=== PATIENT | male | born 1945 | race Caucasian/White ===

== ENCOUNTER → 2022-01-13 | Outpatient (CLI) | payer SELFPAY, OTHER ==
--- NOTE | 2022-01-13 12:40 | ECHOCS_ITS ---
Reason For Study: CAD/ASHD Procedure This was a 2D Doppler, Color Flow transthoracic echocardiogram. The study was technically difficult. Contrast injection was performed. Exam performed in department. Left Ventricle Mildly dilated left ventricle. Left ventricular systolic function is normal. The estimated ejection fraction is 55 %. Post operative septal motion. Diastolic function is indeterminate. Right Ventricle Normal RV size. Normal systolic function. Atria The left atrium is mildly enlarged. Normal right atrium. No doppler evidence for ASD. Mitral Valve There is no mitral annular calcification. Normal mitral valve. Trivial mitral valve insufficiency. Tricuspid Valve Normal tricuspid valve. Trivial tricuspid valve insufficiency. Unable to estimate RV systolic pressure due to insufficient tricuspid regurgitant envelope. Aortic Valve Trisinus/trileaflet aortic valve. Mild diffuse aortic valve thickening. Mild focal aortic valve calcification. Mild (1+) aortic valve insufficiency. Pulmonic Valve The pulmonic valve is not well visualized. Trivial pulmonic valve insufficiency. Great Vessels Normal sized aortic root. Calcified aortic root. Pericardium/Pleural No pericardial effusion. Medication Diluted definity 2ml given slow IV push to enhance endocardial definition. MMode/2D Measurements & Calculations LVIDd: 5.8 cm IVSd: 1.4 cm LVOT diam: 2.2 cm LVIDs: 4.2 cm LVPWd: 1.2 cm RVDd: 3.4 cm FS: 27.4 % LVOT area: 3.9 cm2 Ao root diam: 3.1 cm LAV(MOD-bp): 96.4 ml LA A4 area: 24.7 cm2 LAV(MOD-bp) Indexed: 43.0 ml/m2 LAV(MOD-sp2): 96.0 ml LAV(MOD-sp4): 84.5 ml LA dimension(2D): 5.0 cm RA A4 area: 19.7 cm2 Doppler Measurements & Calculations MV E max elan: 34.1 cm/sec Lat Peak E' Elan: 7.1 cm/sec Med Peak E' Elan: 3.2 cm/sec MV A max elan: 48.2 cm/sec E/E' lat: 4.8 E/E' med: 10.6 MV E/A: 0.71 Ao V2 max: 146.1 cm/sec AI max elan: 337.8 cm/sec LV V1 max: 108.5 cm/sec Ao max P.6 mmHg AI max P.6 mmHg LV V1 max P.7 mmHg Ao V2 mean: 101.1 cm/sec AI dec slope: 120.5 cm/sec2 LV V1 mean P.8 mmHg Ao mean P.5 mmHg AI P1/2t: 821.1 msec LV V1 mean: 80.5 cm/sec Ao V2 VTI: 26.0 cm LV V1 VTI: 20.4 cm VARGAS(I,D): 3.0 cm2 VARGAS(V,D): 2.9 cm2 SV(LVOT): 79.1 ml PA V2 max: 80.3 cm/sec ECHO/Echo Complete W/ Contrast Interpretation Summary The study was technically difficult. Contrast injection was performed. Mildly dilated left ventricle. Left ventricular systolic function is normal. The estimated ejection fraction is 55 %. Post operative septal motion. The left atrium is mildly enlarged. Trivial mitral valve insufficiency. Trivial tricuspid valve insufficiency. Mild diffuse aortic valve thickening. Mild focal aortic valve calcification. Mild (1+) aortic valve insufficiency. Trivial pulmonic valve insufficiency. Calcified aortic root. Unable to estimate RV systolic pressure due to insufficient tricuspid regurgita nt envelope. Diastolic function is indeterminate. 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 Ordering Physician: Juan Mendiola Referring Physician: James Darling Performed By: Zabrina Corbett, RDCS, RVT
== END | disposition home or self-care (01) ==
PROVIDERS: Referring Provider Internal Medicine Cardiovascular Disease; Visit Provider Internal Medicine Cardiovascular Disease
DX: I25.10 Atherosclerotic heart disease of native coronary artery without angina pectoris (principal); Z95.1 Presence of aortocoronary bypass graft
CPT/HCPCS: 93306; Q9957; A4216; C8929

== ENCOUNTER → 2023-02-19 | Outpatient (CLI) | payer OTHER, SELFPAY ==
[2023-02-19 11:30] LABS: Absolute Lymphocyte Count 1.32 X10^3/uL (0.83-4.51); Absolute Neutrophil Count 4.9 X10^3/uL (2.0-7.7); Basophil# 0.05 X10^3/uL; Basophil% 0.7 % (0-1); Eosinophil# 0.22 X10^3/uL; Eosinophils% 2.9 % (0-5); Hematocrit 36.8 % (40-54); Hemoglobin 11.2 g/dL (13.0-16.5); Lymphocyte # 1.32 X10^3/ul (0.83-4.51); Lymphocyte % 17.2 % (19-41); Mean Corp Hgb Conc 30.4 g/dL (32-36); Mean Corpuscular Volume 98.7 fL (80-94); Mean Platelet Vol. 8.9 fl (6.2-12.0); Monocyte# 1.19 X10^3/uL; Monocyte% 15.5 % (0-10); NRBC Flagged by Analyzer 0 % (0-5); Neutrophil # 4.86 X10^3/uL (2.7-7.7); Neutrophil % 63.4 % (47-70); Platelet Count 167 K/mm3 (150-450); RBC Distribution Width CV 14.6 % (11.6-14.6); RBC Distribution Width SD 52.4 fl (35.1-43.9); Red Blood Count 3.73 M/mm3 (4.6-6.2); White Blood Count 7.7 K/mm3 (4.4-11.0)
[2023-02-19 11:50] LABS: BNP,B-Type NATRIURETIC PEPTIDE 598.5 pg/mL (0-100)
[2023-02-19 11:53] LABS: Anion Gap 5 (5-15); BUN 37 mg/dL (7-18); BUN/Creat Ratio 22.2 RATIO (10-20); Calcium,Total 9.3 mg/dL (8.5-10.1); Chloride 109 mmol/L (98-107); Creatinine, Serum 1.67 mg/dL (0.70-1.30); EST Glomerular Filtration Rate 43 mL/min (>60); Est Glom Filt Rate - Afr Amer 52 mL/min (>60); Glucose 70 mg/dL (74-106); Potassium 3.7 mmol/L (3.5-5.1); Sodium Level 144 mmol/L (136-145)
== END | disposition home or self-care (01) ==
PROVIDERS: PCP Nurse Practitioner Family; Referring Provider Physician Assistant Medical; Visit Provider Physician Assistant Medical
DX: R06.09 Other forms of dyspnea (principal); Z95.1 Presence of aortocoronary bypass graft; Z98.890 Other specified postprocedural states; Z86.79 Personal history of other diseases of the circulatory system; I49.3 Ventricular premature depolarization
CPT/HCPCS: 36415; 80048; 83880; 85025

== ENCOUNTER → 2023-03-29 | Outpatient (CLI) | payer SELFPAY, OTHER ==
--- NOTE | 2023-03-29 06:50 | ECHOCS_ITS ---
Reason For Study: POSADAS Procedure This was a 2D Doppler, Color Flow transthoracic echocardiogram. The study was technically difficult. Exam performed in department. Left Ventricle Normal LV size. Left ventricular systolic function is normal. The estimated ejection fraction is 60 %. Stage 1 diastolic dysfunction. No regional wall motion abnormalities noted. Right Ventricle Normal RV size. Normal systolic function. Atria Normal left atrium. Normal right atrium. Mitral Valve Mild (1+) eccentric mitral valve insufficiency. Tricuspid Valve Normal tricuspid valve. Mild tricuspid valve insufficiency. Pulmonary artery systolic pressure is 26 mmHg. Aortic Valve Mild (1+) aortic valve insufficiency. Bioprosthetic aortic valve. Pulmonic Valve Normal pulmonic valve. Trivial pulmonic valve insufficiency. Great Vessels Normal aortic root. The pulmonary artery is normal size. Normal inferior vena cava. Pericardium/Pleural No pericardial effusion. Medication Diluted definity 3ml given slow IV push to enhance endocardial definition. MMode/2D Measurements & Calculations LVIDd: 5.5 cm IVSd: 1.1 cm Ao root diam: 3.6 cm LVIDs: 3.8 cm LVPWd: 1.1 cm RVDd: 3.7 cm FS: 30.3 % LAV(MOD-bp): 58.7 ml LVAd ap4: 40.1 cm2 SV(MOD-sp4): 86.5 ml LAV(MOD-bp) Indexed: 26.1 ml/m2 LVLd ap4: 8.9 cm LAV(MOD-sp2): 57.7 ml EDV(MOD-sp4): 144.2 ml LAV(MOD-sp4): 60.0 ml EDV(sp4-el): 152.9 ml LVAs ap4: 22.6 cm2 LVLs ap4: 7.4 cm ESV(MOD-sp4): 57.7 ml ESV(sp4-el): 58.9 ml EF(MOD-sp4): 60.0 % EF(sp4-el): 61.5 % SV(sp4-el): 94.0 ml LA A4 area: 21.9 cm2 LA dimension(2D): 3.5 cm RA A4 area: 17.5 cm2 Time Measurements MV dec time: 0.37 sec Doppler Measurements & Calculations MV E max elan: 44.8 cm/sec Lat Peak E' Elan: 8.5 cm/sec Med Peak E' Elan: 5.3 cm/sec MV A max elan: 54.2 cm/sec E/E' lat: 5.3 E/E' med: 8.4 MV E/A: 0.83 Ao V2 max: 134.8 cm/sec LV V1 max: 68.8 cm/sec PA V2 max: 105.1 cm/sec Ao max P.3 mmHg LV V1 max P.9 mmHg TR max elan: 240.4 cm/sec TR max P.1 mmHg ECHO/Echo Complete W/ Contrast Interpretation Summary Normal LV size. Left ventricular systolic function is normal. The estimated ejection fraction is 60 %. Stage 1 diastolic dysfunction. Bioprosthetic aortic valve. Mild (1+) aortic valve insufficiency. Contrast injection was performed. Ordering Physician: Candice Louis/Lazarus Patterson Referring Physician: CHRISTIE KINGSLEY Performed By: Irena Stephenson RDCS
--- OUTSIDE RECORDS SUMMARY | 2023-03-29 06:57 | XMS RPT_ITS | CCD ---
Author Name Unknown Address [address] [place] [address] Organization [facility] Care Team Providers Care Recreation Facility Attendant Name Role Phone JAVIER PATTERSON, ROSETTA GUERRA Primary Care Physician Thong Herrera Primary Care Provider [phone] Elisha PATTERSON, [place] Unavailable Javier PATTERSON, Thong Guevara Primary Care Provider ROSETTA HERRERA MD Primary Care Physician Javier PATTERSON, Thong Guevara Primary Care Provider Elisha PATTERSON, Jonel Unavailable Javier PATTESRON, Thong Guevara Primary Care Provider Elisha PATTERSON, Jonel Unavailable Velia Mojica MD Unavailable [facility] Primary Care [facility] javi Elisha PATTERSON, [place] Unavailable THONG HERRERA Primary Care Unavailable ROSELLI, ROSETTA E Referring Unavailable THONG HERRERA Primary Care Unavailable ROSELLI, ROSETTA E Referring Unavailable THONG HERRERA Primary Care Unavailable ROSELLI, ROSETTA E Referring Unavailable THONG HERRERA Primary Care Unavailable SAMINAI, ROSETTA E Referring Unavailable MELVIN AGUILAR Referring Unavailable MELVIN AGUILAR Attending Unavailable THONG HERRERA Primary Care Unavailable ELISHA, JONEL Referring Unavailable THONG HERRERA Primary Care Unavailable CARMITA CLEARYOPE Attending Unavailable THONG HERRERA Primary Care Unavailable ELISHA, JONEL Referring Unavailable HERRERA, THONG ROSETTA Primary Care Unavailable ELISHA, JONEL Referring Unavailable HERRERA, THOGN ROSETTA Primary Care Unavailable ROSETTA LU Attending Unavailable JANAE JARA R Admitting Unavailable COBLENCAMILLE, JANAE R Primary Care Unavailable COBLENCAMILLE, JANAE R Attending Unavailable HERRERATITA FIELD ENUMERATOR Consulting Unavailable PROVIDER, UNKNOWN Consulting Unavailable PROVIDER, UNKNOWN Consulting Unavailable COUVAMSHI, VELIA Admitting Unavailable COUVAMSHI, VELIA Primary Care Unavailable COUVELIA BONDS Attending Unavailable TITA HERRERA FIELD ENUMERATOR Consulting Unavailable PROVIDER, UNKNOWN Consulting Unavailable PROVIDER, UNKNOWN Consulting Unavailable TITA HERRERA FIELD ENUMERATOR Attending Unavailable ROSETTA HERRERA MD Consulting Unavailable TITA HERRERA NP Admitting Unavailable HERRERA, TITA WALLER Primary Care Unavailable PROVIDER, UNKNOWN Consulting Unavailable PROVIDER, UNKNOWN Consulting Unavailable PROVIDER, UNKNOWN Consulting Unavailable CHEVERINE, CINDY ACETYLENE TORCH BURNER Admitting Unavailable CHEVERINE, CINDY ACETYLENE TORCH BURNER Primary Care Unavailable CHEVERINE CINDY CHAYO Attending Unavailable ROSETTA HERRERA MD Consulting Unavailable PROVIDER, UNKNOWN Consulting Unavailable PROVIDER, UNKNOWN Consulting Unavailable PROVIDER, UNKNOWN Consulting Unavailable GUILLERMO PATTON MD Admitting Unava ilable BUCKTOWARSINAfsaneh, GUILLERMO PATTERSON Primary Care Unava ilable BUCKTOWARMAGDALENA, GUILLERMO PATTERSON Attending Unava ilable TITA HERRERA NP Consulting Unavailable PROVIDER, UNKNOWN Consulting Unavailable PROVIDER, UNKNOWN Consulting Unavailable MARITZA PATTERSON, DR POTTER Attending Unavailable HORICARDOTETTER MAINTENANCE MECHANIC 2ND SHIFT-ACETYLENE TORCH BURNER, [facility] Karime vailable JAVIER PATTERSON, ROSETTA GUERRA [facility] Unavailab Cehtan Almaraz MD Attending Unavailable CHEVERINE MAINTENANCE MECHANIC 2ND SHIFT-ACETYLENE TORCH BURNER, CINDY Attending Unavail able JAVIER PATTERSON, ROSETTA GUERRA [facility] Unavailab beronica KINGSLEY MAINTENANCE MECHANIC 2ND SHIFT-ACETYLENE TORCH BURNER, [facility] Karime vailable GALINA PATTERSON, VELIA Booker Attending Unavailable HOFSTETTER MAINTENANCE MECHANIC 2ND SHIFT-ACETYLENE TORCH BURNER, [facility] Karime vailable ESTEFANI PATTERSON, DR CARDOSO Attending Unavailramakrishna MOJICA MD, VELIA Booker Attending Unavailable WILLIAMSTEJONYER MAINTENANCE MECHANIC 2ND SHIFT-ACETYLENE TORCH BURNER, [facility] Karime vailable ESTEFANI PATTERSON, DR CARDOSO Attending Unavaila jaida KRAMERTEFIONA MAINTENANCE MECHANIC 2ND SHIFT-ACETYLENE TORCH BURNER, [facility] Karime vailable GALINA PATTERSON, VELIA Booker Attending Unavailable HORICARDOTEJONYER MAINTENANCE MECHANIC 2ND SHIFT-ACETYLENE TORCH BURNER, [facility] Karime vailable WILLIAMSTEFIONA MAINTENANCE MECHANIC 2ND SHIFT-ACETYLENE TORCH BURNER, [facility] Karime JARA MD, DR CARDOSO [facility] Medications Current Medications Medication Drug Class(es) Dates Sig (Normalized) Sig (Original) amoxicillin 875 mg / clavulanate 125 mg oral tablet (1 source) Penicillin-class Antibacterial Start: 09-20-2021 End: 09-27-2021 take 1 tablet by mouth twice daily amoxicillin-clav ulanic acid (AUGMENTIN) 875-125 mg per tablet Take 1 tablet by mouth twice daily for 7 days. 14 tablet 0 09/20/2021 09/27/2021 Active Completed/Discontinued Medications Medication Drug Class(es) Dates Sig (Normalized) Sig (Original) acetaminophen 325 mg oral tablet (3 sources) Start: 03-15-2021 End: 07-08-2021 take 2 tablets by mouth every four hours as needed acetaminophen (TYLENOL) 325 mg tablet Take 2 tablets by mouth every 4 hours as needed for pain. 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; Translations: [Occlusion and stenosis of multiple and bilateral precerebral arteries with cerebral infarction] Onset: 02-22-2021 05-09-2021 Chronic Aortic; peripheral; and visceral artery aneurysms (20 sources) Aneurysm of thoracic aorta; Translations: [Thoracic aortic aneurysm without rupture] Onset: 02-19-2021 07-30-2014 Chronic Cardiac dysrhythmias (20 sources) Paroxysmal atrial fibrillation; Translations: [Paroxysmal atrial fibrillation] Onset: 04-29-2021 04-29-2021 Chronic Cardiac dysrhythmias (1 source) Palpitations; Translations: [Palpitations] Episodic Chronic kidney disease (20 sources) Chronic kidney disease stage 3; Translations: [Stage 3 chronic kidney disease] Onset: 03-01-2021 05-09-2021 Chronic Chronic kidney disease (2 sources) Chronic kidney disease; Translations: [Chronic kidney disease, stage 3b] Onset: 08-16-2022 Congestive heart failure; nonhypertensive (9 sources) Acute on chronic diastolic heart failure; Translations: [Acute on chronic diastolic (congestive) heart failure] Onset: 05-05-2022 Chronic Coronary atherosclerosis and other heart disease (20 sources) Coronary arteriosclerosis; Translations: [Atherosclerotic heart disease of [place] coronary artery without angina pectoris] Onset: 02-21-2021 05-10-2021 Chronic Deficiency and other anemia (5 sources) Anemia due to and following chemotherapy 01-05-2021 Episodic Disorders of lipid metabolism (20 sources) Hyperlipidemia; Translations: [Hyperlipidemia, unspecified] Onset: 07-08-2021 07-08-2021 Chronic Diverticulosis and diverticulitis (5 sources) Diverticulitis 07-30-2014 Chronic Essential hypertension (3 sources) Hypertensive disorder; Translations: [Essential (primary) hypertension] Onset: 07-28-2022 Chronic Gastroduodenal ulcer (except hemorrhage) (20 sources) Ulcer of duodenum; Translations: [Duodenal ulcer, unspecified as acute or chronic, without hemorrhage or perforation] Onset: 02-27-2021 05-09-2021 Chronic Heart valve disorders (20 sources) Aortic valve regurgitation; Translations: [Nonrheumatic aortic (valve) insufficiency] Onset: 02-21-2021 05-09-2021 Chronic Non-Hodgkin`s lymphoma (20 sources) Non-Hodgkin's lymphoma (clinical); 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] Onset: 02-15-2005 06-09-2021 Chronic Other acquired deformities (20 sources) Acquired kyphosis; Translations: [Other secondary kyphosis, cervical region] Onset: 08-31-2021 08-31-2021 Chronic Other circulatory disease (5 sources) H/O: rheumatic fever 07-30-2014 Episodic Other connective tissue disease (2 sources) Swelling of bilateral lower limbs 12-30-2021 Episodic Other diseases of kidney and ureters (1 source) Renal mass 09-04-2022 Chronic Other upper respiratory disease (20 sources) Vocal cord paralysis; Translations: [Paralysis of vocal cords and larynx, unilateral] Onset: 08-31-2021 08-31-2021 Chronic Other upper respiratory disease (1 source) Non-allergic rhinitis; Translations: [Chronic rhinitis] Chronic Other upper respiratory disease (20 sources) Bowing of vocal cord; Translations: [Other diseases of vocal cords] Onset: 08-31-2021 08-31-2021 Episodic Other upper respiratory disease (1 source) Disorder of vocal cord; Translations: [Other diseases of vocal cords] Episodic Thyroid disorders (20 sources) Thyroid nodule; Translations: [Nontoxic single thyroid nodule] Onset: 03-08-2021 03-14-2021 Chronic Unclassified (5 sources) Malignant lymphoma 07-23-2014 Unclassified (5 sources) Thoracoscopy with partial pulmonary decortication Onset: 07-31-2014 07-31-2014 Past or Other Problems Problem Classification Problem Date Documented Da te Episodic/Chronic Acute posthemorrhagic anemia (20 sources) Acute posthemorrhagic anemia; Translations: [Acute posthemorrhagic anemia] Onset: 1 05-09-2021 Episodic Administrative/social admission (20 sources) Patient encounter status; Translations: [Persons encountering health services in other specified circumstances] Onset: 1 2021 Episodic Complications of surgical procedures or medical care (20 sources) Postoperative hypertension; Translations: [Postprocedural hypertension] Onset: 2 05-09-2021 Episodic Diabetes mellitus without complication (20 sources) Prediabetes; Translations: [Prediabetes] Onset: 2 07-08-2021 Episodic Gastrointestinal hemorrhage (20 sources) Gastrointestinal hemorrhage; Translations: [Gastrointestinal hemorrhage, unspecified] Onset: 5 03-02-2005 Episodic Hemorrhoids (20 sources) Internal hemorrhoids; Translations: [Other hemorrhoids] Onset: 5 01-01-2017 Episodic Non-Hodgkin`s lymphoma (20 sources) History of malignant lymphoma; Translations: [Personal history of other malignant neoplasms of lymphoid, hematopoietic and related tissues] Onset: 3 12-19-2012 Episodic Other aftercare (20 sources) Post-discharge follow-up; Translations: [Encounter for follow-up examination after completed treatment for conditions other than malignant neoplasm] Onset: 1 05-10-2021 Episodic Other diseases of kidney and ureters (20 sources) Acute renal insufficiency; Translations: [Disorder of kidney and ureter, unspecified] Onset: 1 05-10-2021 Episodic Other gastrointestinal disorders (20 sources) Dysphagia; Translations: [Dysphagia, unspecified] Onset: 1 01-19-2021 Episodic Other non-epithelial cancer of skin (20 sources) Malignant basal cell neoplasm of skin; Translations: [Malignant neoplasm of skin of face] Onset: 2 07-23-2014 Episodic Other upper respiratory disease (20 sources) Dysphonia; Translations: [Dysphonia] Onset: 2 08-31-2021 Episodic Pleurisy; pneumothorax; pulmonary collapse (20 sources) Pleural effusion; Translations: [Atelectasis] Onset: 2 09-10-2015 Episodic Residual codes; unclassified (20 sources) Delirium; Translations: [Disorientation, unspecified] Onset: 2 05-10-2021 Episodic Results Test Name Value Interpretation Reference Range Facil ity Vital Signs Date Time Vital Sign Value Performing Clinician Facility 07-28-2022 13:33-0400 Diastolic blood pressure 58 mm[Hg] Jonel Cleary MD Work Phone: [facility] 07-28-2022 13:33-0400 Systolic blood pressure 115 mm[Hg] Jonel Cleary MD Work Phone: [facility] 07-28-2022 13:30-0400 Body weight 97.52 kg Jonel Cleary MD Work Phone: [facility] 07-28-2022 13:30-0400 Heart rate 59 /min Jonel Cleary MD Work Phone: [facility] 07-28-2022 13:30-0400 Respiratory rate 18 /min Jonel Cleary MD Work Phone: [facility] 07-28-2022 13:30-0400 SaO2% (BldA) [Mass fraction] 94 % Jonel Cleary MD Work Phone: [facility] 05-12-2022 13:30-0500 Body temperature 98.71 [degF] Research Main Work Phone: [facility] 05-12-2022 13:30-0500 Body weight 95.35 kg Research Main Work Phone: [facility] 05-12-2022 13:30-0500 Diastolic blood pressure 73 mm[Hg] Research Main Work Phone: [facility] 05-12-2022 13:30-0500 Respiratory rate 16 /min Research Main Work Phone: [facility] 05-12-2022 13:30-0500 SaO2% (BldA) [Mass fraction] 95 % Research Main Work Phone: [facility] 05-12-2022 13:30-0500 Systolic blood pressure 137 mm[Hg] Research Main Work Phone: [facility] 06-09-2021 11:28-0400 diastolic 63 mm[Hg] KELLEY BOURGEOIS MD [facility] 06-09-2021 11:28-0400 Heart rate 63 /min KELLEY BOURGEOIS MD [facility] 06-09-2021 11:28-0400 Respiratory rate 18 /min KELLEY BOURGEOIS MD [facility] 06-09-2021 11:28-0400 systolic 145 mm[Hg] KELLEY BOURGEOIS MD [facility] 06-09-2021 08:57-0400 Body temperature 97.34 [degF] KELLEY BOURGEOIS MD [facility] 06-09-2021 08:57-0400 diastolic 68 mm[Hg] KELLEY BOURGEOIS MD [facility] 06-09-2021 08:57-0400 Heart rate 63 /min KELLEY BOURGEOIS MD [facility] 06-09-2021 08:57-0400 Respiratory rate 20 /min KELLEY BOURGEOIS MD [facility] 06-09-2021 08:57-0400 systolic 149 mm[Hg] KELLEY BOURGEOIS MD [facility] 04-29-2021 10:33-0500 Diastolic blood pressure 90 mm[Hg] Jonel Cleary MD Work Phone: [facility] 04-29-2021 10:33-0500 Systolic blood pressure 127 mm[Hg] Jonel Cleary MD Work Phone: [facility] 04-29-2021 10:32-0500 Body weight 96.62 kg Jonel Cleary MD Work Phone: [facility] 04-29-2021 10:32-0500 Heart rate 85 /min Jonel Cleary MD Work Phone: [facility] 04-29-2021 10:32-0500 Respiratory rate 12 /min Jonel Cleary MD Work Phone: [facility] 04-29-2021 10:32-0500 SaO2% (BldA) [Mass fraction] 96 % Jonel Cleary MD Work Phone: [facility] Encounters Encounter Date Encounter Type Care Provider Facility Start: 01-18-2023 End: 01-19-2023 ambulatory CHRISTIE KINGSLEY MAINTENANCE MECHANIC 2ND SHIFT-ACETYLENE TORCH BURNER Facility:A Start: 01-11-2023 End: 01-11-2023 ambulatory VELIA MOJICA [facility] Start: 01-08-2023 End: 01-09-2023 ambulatory CHRISTIE KINGSLEY MAINTENANCE MECHANIC 2ND SHIFT-ACETYLENE TORCH BURNER Facility:A Start: 01-02-2023 End: 01-02-2023 ambulatory JANAE JARA [facility] Start: 12-06-2022 End: 12-07-2022 ambulatory CHRISTIE KINGSLEY MAINTENANCE MECHANIC 2ND SHIFT-ACETYLENE TORCH BURNER Facility:A Start: 11-22-2022 End: 11-22-2022 ambulatory GUILLERMO PATTON [facility] Start: 11-08-2022 End: 08-23-2023 ambulatory TITA FIELD ENUMERATOR [facility] Start: 11-06-2022 Patient encounter procedure Janna Bacon Research Coordinator Cardiology Procedures Date Procedure Procedure Detail Performing Clinician Start: 08-22-2022 OUTSIDE VENDOR CARDI AC OUTPATIENT EXTENDED RHYTHM RECORDING ((WITHOUT Jonel Cleary MD Work Phone: Start: 06-24-2021 Ct angio abd&plvis c ntrst mtrl w/wo cntrst img Rosetta Lu MD Work Phone: Start: 06-24-2021 Ct angiography chest w/contrast/noncontrast Rosetta Lu MD Work Phone: Start: 06-07-2021 OUTSIDE VENDOR CARDI AC OUTPATIENT EXTENDED RHYTHM RECORDING ((WITHOUT Jonel Cleary MD Work Phone: Start: 03-19-2021 Abdominal aortic ane urysm (disorder) DR JANAE JARA MD Start: 02-16-2021 Heart structure (bod y structure) MADELINE JEFF MD Start: 07-31-2014 Lung structure (body structure) KELLEY BOURGEOIS MD Plan of Treatment Date Care Activity Detail Author Start: 06-24-2026 LIPID SCREEN LIPID SCREEN [facility] Start: 07-28-2025 DIABETES SCREEN DIABETES SCREEN [facility] Start: 06-24-2024 DIABETES SCREEN DIABETES SCREEN [facility] Start: 07-29-2023 HEMOGLOBIN/HEMATOCRIT HEMOGLOBIN/HEMATOCRIT [facility] Start: 07-29-2023 Hepatitis B surface antibody level LDL CHOLESTEROL [facility] Start: 07-29-2023 SERUM CREATININE SERUM CREATININE [facility] Start: 05-12-2023 SERUM CREATININE SERUM CREATININE [facility] Start: 03-30-2023 End: 05-30-2023 CREATININE BLD CREATININE BLD Lab Routine Thoracoabdominal aortic aneurysm (TAAA) without rupture, unspecified part (HCC) Examination of participant in clinical trial Expected: 03/30/2023 (Approximate), Expires: 05/30/2023 [facility] Work Phone: Payers Date Payer Category Payer Unknown [id number] 2022 Self-pay 2022 Unknown [id number] 2022 Unknown [id number] 2021 Unknown HINDU SELF P AY HINDU SELF PAY GENERIC x0000 2021-Present [id number] [id number] Other x0000 [id number] 2021 Unknown [id number] 2021 Unknown [id number] [id number] 1946 Unknown [id number] [id number] 1946 Unknown [id number] 2.16.840.1.100737.3.579.2.651 1946 Unknown [id number] 2.16.840.1.901644.3.579.2.651 1946 Unknown [id number] 2.16.840.1.434735.3.579.2.651 1945 Unknown [id number] 2.16.840.1.987625.3.579.2.651 1946 Unknown [id number] [id number] 1946 Unknown [id number] [id number] 1946 Unknown [id number] [id number] 1946 Unknown [id number] [id number] 1946 Unknown [id number] [id number] 1946 Unknown [id number] [id number] 1946 Unknown [id number] [id number] 1946 Unknown [id number] [id number] 1946 Unknown [id number] Social History Date Type Detail Facility Start: 05-14-2019 Never smoked t obacco (finding) [facility] Sex Assigned At Male [facility] Start: 06-24-2021 End: 08-30-2022 Alcohol intake Current non-drinker of alcohol (finding) [facility] Start: 1945 Sex Assigned At Not on file [facility] Start: 06-14-2021 End: 11-23-2021 Exposure to SARS-CoV-2 (event) Not sure [facility] Start: 08-31-2021 End: 11-23-2021 Tobacco smoking status NHIS Ex-smoker [facility] Work Phone: History of tobacco use Cigarette Smoker C [facility] Work Phone: Start: 08-31-2021 End: 11-23-2021 Tobacco use and exposure Smokeless tobacco non-user [facility] Work Phone: Start: 08-31-2021 End: 11-23-2021 Tobacco Comment very remotely [facility] History of tobacco use Current smoker [facility] Start: 07-28-2022 End: 08-30-2022 History of Social function [facility] Start: 07-28-2022 End: 08-30-2022 Tobacco use panel [facility] National Score (1-100), lower number is lower risk 40 [facility] Medical Equipment Procedure Code Equipment Code Equipment Original Text Equipment Identifier Dates Clip Atriclip Gillinov-Bret 180d Long 35mm 25mm Internal Head - [id number] Start: 02-21-2021 Graft Vascutek A nte-Mookie 30mm Cardiovascular - [id number] Start: 02-21-2021 [id number] B-Safer Adena Tag/Main Body [id number] - [id number] Start: 02-21-2021 [id number] B-Safer Bard Fluency Plus [id number] - [id number] Start: 02-21-2021 [id number] B-Safer Bard Fluency Plus [id number] - [id number] Start: 02-21-2021 [id number] B-Safer Adena Tag/Distal [id number] - [id number] Start: 05-05-2021 [id number] B-Safer Adena Tag/Distal [id number] - [id number] Start: 05-05-2021 [id number] B-Safer Adena Tag/Distal [id number] - [id number] Start: 05-05-2021 Patch Thk.5mm James vine Pericardial 72d78ym Cardiovascular Resilience Durable - [id number] Start: 02-21-2021 Sternal Plate Sy stem Straight 4 Hole - [id number] Start: 02-21-2021 Sternal Plate Sy stem V Plate 4 Hole - [id number] Start: 02-21-2021 Screw Slf Drl Lk 3.5 - [id number] Start: 02-21-2021 Stent Adena Viaba hn 8mm 16sq Mm 7fr .035in 39mm 135cm Endoprosthesis Balloon - [id number] Start: 05-05-2021 Catheter Edm Bar ium Silicone 80cm Drainage Open Tip Impregnate Sterile - [id number] Start: 05-04-2021 Silicone Block F irm 12x7x1.5cm - [id number] Start: 09-20-2021 Clinical Notes 04-11-2021 to 10-23-2022 Telephone Encounter - Regino Toth 10/23/2022 12:38 PM EDTTelephone Encounter - Breana Pittman RN - 09/21/2022 12:48 PM EDTTelephone Encounter - Regino Toth - 09/21/2022 10:32 AM EDT Note Date & Type Note Facility 10-23-2022 Miscellaneous Notes Call from patient requesting refill. Requested Prescriptions Pending Prescriptions Disp Refills aspirin, enteric coated (ASPIR-81) 81 mg EC tablet 90 tablet 0 Sig: Take 1 tablet by mouth once daily. NEED APPT FOR FURTHER REFILLS. Patient last seen 07/28/2022 -pt has one pill left. Regino Toth documented in this encounter [facility] 09-21-2022 Miscellaneous Notes Images from the original note were not included. Jonel Cleary MD [facility] Clinical Nurse Phone Pool; Regino Toth Would you mind informing patient that holter had a lot of extra heart beats. Would like him to be considered for repeat stress test. Also, should have FIELD ENUMERATOR visit same day to reassess swelling in legs and blood work, ecg. Thanks. Patient is Christoph - unsure if available by telephone. Spoke with the patient's daughter, Keena. Discussed the results above and Dr Cleary's recommendations. She will discuss this with him and call to schedule appointments. She has noticed some increased swelling in BLE. She was advised that they may be contacted today about scheduling an appt with an FIELD ENUMERATOR in our clinic to reassess his swelling, labs and ECG. Breana Pittman RN documented in this encounter [facility] 09-21-2022 Miscellaneous Notes Request was sent to scheduling to get patient scheduled for 09/28/2022. Will follow up end of day on 09/21/2022. Regino Toth documented in this encounter [facility] 08-30-2022 Note HNO ID: [id number] Author: Melvin Aguilar MD Service: ? 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 His left vocal fold is in a good midline position but he has some mild bowing on the right. He is pleased with the quality of his voice, but if it worsens we can consider an injection into the right side. He does have some trouble with mucous in the throat, but I suspect that may be in part to his CHF. Follow with me as needed HPI: Last seen 11/23/21: Doing well 2 months s/p left medlialization laryngoplasty 09/20/21. Cord appears very well medialized and patient has no complaints except for occasional hoarseness in the mornings. We will plan to see him back for a last check in 6-8 months. He notes that his voiced fluctuates with the weather and may have seasonal allergies or non-allergic rhinitis. He is doing well with this and no treatment recommended at this andrei although he can use a steroid nasal spray as needed. Today he reports That his voice is good. ALLERGIES No Known Allergies Current Outpatient Medications Medication Sig furosemide (LASIX) 20 mg tablet Take 1 tablet by mouth once daily. atorvastatin (LIPITOR) 80 mg tablet Take 1 tablet by mouth once daily. potassium chloride (K-TAB) 10 mEq tablet Take 1 tablet by mouth once daily. lisinopril 2.5 mg tablet Take 1 tablet by mouth once daily. NEED APPT FOR FURTHER REFILLS. metoprolol succinate ER (TOPROL XL) 100 mg Take 1 tablet by mouth once daily. NEED APPT FOR FURTHER REFILLS. aspirin, enteric coated (ASPIR-81) 81 mg EC tablet Take 1 tablet by mouth once daily. NEED APPT FOR FURTHER REFILLS. iv contrast (will be provided with radiology test) CTA CHEST (NONGATED) ABD/PEL WO/W IVCON - No IV access, insert saline lock prior to the sedation, infusion, injection for imaging exam. Discontinue saline lock post exam. If Pt. has a central line or IVAD, may access for administration according to line specific nursing protocol. Once exam is complete flush line and de-access according to line specific nursing protocol in the CT contrast administration guidelines link. Current Facility-Administered Medications Medication Dose Route Frequency perflutren lipid microspheres 1.3 mL in NaCl (PF) 0.9% 10 mL injection (DEFINITY) INTRAVENOUS DIRECTED PRN sodium chloride 0.9 % (flush) 10 mL (BD POSIFLUSH) 10 mL INTRAVENOUS DIRECTED PRN PAST MEDICAL HISTORY Diagnosis Date Aortic dissection (HCC) Basal cell carcinoma of nose CAD (coronary artery disease) Hemorrhage of gastrointestinal tract, unspecified HTN (hypertension) Internal hemorrhoids without mention of complication Other malignant lymphomas, unspecified site, extranodal and solid organ sites PAF (paroxysmal atrial fibrillation) (HCC) PAST SURGICAL HISTORY Procedure Laterality Date APPENDECTOMY COLONOSCOPY FLX DX W/COLLJ SPEC WHEN PFRMD 1995 Colonoscopy COLONOSCOPY FLX DX W/COLLJ SPEC WHEN PFRMD Colonoscopy by Dr. Torres MIDLINE INSERTION/CONSULT 02/27/2021 PAST SURGICAL HISTORY OF bx of lumps on left lower shoulder PAST SURGICAL HISTORY OF Basal Cell Carcinoma of nose removed PAST SURGICAL HISTORY OF 2013 surgery to remove scar tissue in lung done at [place] SIGMOIDOSCOPY FLX DX W/COLLJ SPEC BR/WA IF PFRMD 05/31/1987 Sigmoidoscopy, flexible SIGMOIDOSCOPY FLX DX W/COLLJ SPEC BR/WA IF PFRMD 03/02/05 Sigmoidoscopy, flexible TONSILLECTOMY PRIMARY/SECONDARY Tonsillectomy Social History: Social History Tobacco Use Smoking status: Former Types: Cigarettes Smokeless tobacco: Never Tobacco comments: very remotely Vaping Use Vaping Use: Never used Substance Use Topics Alcohol use: No Drug use: No PHYSICAL EXAM: On physical examination Lamont Oropeza is a well-developed, well nourished male. The voice is strong. Cranial nerves II-XII are grossly intact Mental status revealed patient to be alert and oriented. Mood is appropriate. Details of the physical examination: HEAD AND FACE: Physical examination of the head, neck, external nose, external ears, mouth and face fails to demonstrate any significant abnormality or asymmetry to critical face to face observation. Skin and scalp are normal. ORAL CAVITY/OROPHARYNX: no masses or lesions LARYNX: Recommend flexible laryngoscopy with stroboscopy NECK: No adenopathy, well healed scar, kyphosis CHARTS REVIEWED: My notes, recent cardiothoracic notes VHI: P:11, F:9, E:4, Total:24 MPT: 18 Jennifer Dominguez MD I participated in the history and physical exam of Lamont Oropeza. I discussed the management of Lamont Oropeza with the resident. I reviewed the (more content not included)... [facility] 07-31-2022 Miscellaneous Notes Call from patient requesting refill. Pt's dtr stated that he only has two pills left of the lasix. Pt's dtr is also requesting new prescriptions for the other medications listed to by written by Dr. Cleary. They were previously written by the pt's family doctor. I explained to her that since the PCP initially prescribed them that he might have to continue, but she still wanted Dr. Cleary to look at it. Requested Prescriptions Pending Prescriptions Disp Refills furosemide (LASIX) 20 mg tablet Sig: Take 1 tablet by mouth once daily. aspirin, enteric coated (ASPIR-81) 81 mg EC tablet 90 tablet 0 Sig: Take 1 tablet by mouth once daily. NEED APPT FOR FURTHER REFILLS. atorvastatin (LIPITOR) 80 mg tablet 90 tablet 3 Sig: Take 1 tablet by mouth once daily. metoprolol succinate ER (TOPROL XL) 100 mg 90 tablet 3 Sig: Take 1 tablet by mouth once daily. NEED APPT FOR FURTHER REFILLS. potassium chloride (K-TAB) 10 mEq tablet Sig: Take 1 tablet by mouth once daily. Patient last seen 07/28/2022 Regino Toth documented in this encounter [facility] 07-28-2022 Note HNO ID: [id number] Author: Joenl Cleary MD Service: ? Author Type: Physician Type: Progress Notes Filed: 09/20/2022 10:43 AM Note Text: [facility] Department of Cardiovascular Medicine SECTION OF CLINICAL CARDIOLOGY OUTPATIENT VISIT DATE July 28, 2022 OUTPATIENT VISIT TYPE ESTABLISHED PRIMARY CARE PHYSICIAN: Chetan Herrera MD [address] [place] [address] REFERRING PHYSICIAN: Chelsea Miller [address] [facility] [id number] CHIEF COMPLAINT: Follow-up HISTORY OF PRESENT ILLNESS: Mr. Oropeza is a 76 year old male who presents today for a cardiovascular medicine follow-up visit. Last seen 04/29/2021. He has a significant medical history of a CAD s/p scending and Hybrid Aortic arch repair with a Frozen elephant trunk and stent to the LSCA (B-SAFER), AVr, CABGx3 (SEBASTIAN-LAD, SVG-seq to Ramus and OM1), LAAC on 02/21/2021, CKD stage 3, thyroid nodule, CVA, remote lymphoma. Postoperatively had a mechanical fall that resulted in several rib fractures and had blurred vision due to CVA during ascending aortic arch repair. On 05/05/2021 he underwent successful TEVAR extension. Today, he is accompanied by his daughter. Overall doing well. Still struggles with blurred vision. Recovered well from TEVAR. Follows up with ENT for ongoing evaluation of vocal cords. He denies chest pain, shortness of breath, orthopnea, cough, edema, palpitations, PND, lightheadedness or syncope. Presents for assessment of abnormal CT. Social History: Still grieving the of his ~ 2 years ago. PAST MEDICAL HISTORY Diagnosis Date Basal cell carcinoma of nose Hemorrhage of gastrointestinal tract, unspecified Internal hemorrhoids without mention of complication Other malignant lymphomas, unspecified site, extranodal and solid organ sites PAST SURGICAL HISTORY Procedure Laterality Date APPENDECTOMY COLONOSCOPY FLX DX W/COLLJ SPEC WHEN PFRMD 1995 Colonoscopy COLONOSCOPY FLX DX W/COLLJ SPEC WHEN PFRMD Colonoscopy by Dr. Torres MIDLINE INSERTION/CONSULT 02/27/2021 PAST SURGICAL HISTORY OF bx of lumps on left lower shoulder PAST SURGICAL HISTORY OF Basal Cell Carcinoma of nose removed PAST SURGICAL HISTORY OF 2013 surgery to remove scar tissue in lung done at [place] SIGMOIDOSCOPY FLX DX W/COLLJ SPEC BR/WA IF PFRMD 05/31/1987 Sigmoidoscopy, flexible SIGMOIDOSCOPY FLX DX W/COLLJ SPEC BR/WA IF PFRMD 03/02/05 Sigmoidoscopy, flexible TONSILLECTOMY PRIMARY/SECONDARY Tonsillectomy Social History Tobacco Use Smoking status: Former Types: Cigarettes Smokeless tobacco: Never Tobacco comments: very remotely Vaping Use Vaping Use: Never used Substance Use Topics Alcohol use: No Drug use: No FAMILY HISTORY Problem Relation Age of Onset Emphysema Father Thyroid Mother None Sister None Sister None Sister None Brother None Brother other (kidney tumor) Brother other (spine problem) Sister ALLERGIES No Known Allergies MEDICATIONS: furosemide (LASIX) 20 mg tabletTake 1 tablet by mouth once daily.Disp: 90 tabletRfl: 3 atorvastatin (LIPITOR) 80 mg tabletTake 1 tablet by mouth once daily.Disp: 90 tabletRfl: 3 potassium chloride (K-TAB) 10 mEq tabletTake 1 tablet by mouth once daily.Disp: 90 tabletRfl: 3 lisinopril 2.5 mg tabletTake 1 tablet by mouth once daily. NEED APPT FOR FURTHER REFILLS.Disp: 90 tabletRfl: 3 metoprolol succinate ER (TOPROL XL) 100 mgTake 1 tablet by mouth once daily. NEED APPT FOR FURTHER REFILLS.Disp: 90 tabletRfl: 3 aspirin, enteric coated (ASPIR-81) 81 mg EC tabletTake 1 tablet by mouth once daily. NEED APPT FOR FURTHER REFILLS.Disp: 90 tabletRfl: 0 iv contrast (will be provided with radiology test)CTA CHEST (NONGATED) ABD/PEL WO/W IVCON - No IV access, insert saline lock prior to the sedation, infusion, injection for imaging exam. Discontinue saline lock post exam. If Pt. has a central line or IVAD, may access for administration according to line specific nursing protocol. Once exam is complete flush line and de-access according to line specific nursing protocol in the CT contrast administration guidelines link.Disp: 1 EachRfl: 0 REVIEW OF SYSTEMS: GENERAL: Negative for: Weight loss or gain, Fever or Chills, Weakness and Sleep difficulties. HEENT: Negative for: Headache, Impaired Vision, Glasses, Hearing Impairment, Ringing in Ears, Nosebleeds, Poor dental care, Bleeding Gums, Dentures NECK: Negative for: Swelling, Pain, Stiffness RESPIRATORY: Negative for: Cough, Blood in Sputum, Shortness of breath, Wheezing, Apnea GASTROINTESTINAL: Negative for: Trouble swallowing, Heartburn, Change in bowel habits, Blood in stool, Dark black stools MUSCULOSKELETAL: Negative for: Muscle or joint pain, Stiffness , Joint swelling NEUROLOGIC/PSYCHIATRIC: Negative for: Weakness, Paralysis, Numbness, Tingling, Trem (more content not included)... [facility] 07-28-2022 Instructions Jonel Cleary MD - 07/28/2022 2:22 PM EDT 1) Aortic aneursym. Appears stable compared to scan from April. No change to management plan. Will speak with Dr. Lu and contact you if he would like to evaluate you. 2) Blood pressure. Continue to target blood pressure less than 120/80. Will reduce lisinopril to 2.5 mg from 5 mg daily. Continue metoprolol. 3) Blood work. Please complete today. I will check you cholesterol and look for markers of cardiac congestion. 4) Extra heart beats. Will send monitor in the mail to assess. Please return by mail. 5) Follow-up. In approximately 6 months time with ecg, blood work, and echo documented in this encounter [facility] 07-28-2022 History of Present illness Narrative Images from the original note were not included. [facility] Department of Cardiovascular Medicine SECTION OF CLINICAL CARDIOLOGY OUTPATIENT VISIT DATE July 28, 2022 OUTPATIENT VISIT TYPE ESTABLISHED PRIMARY CARE PHYSICIAN: Chetan Herrera MD [address] [place] [address] REFERRING PHYSICIAN: Chelsea Miller [address] [facility] [id number] CHIEF COMPLAINT: Follow-up HISTORY OF PRESENT ILLNESS: Mr. Oropeza is a 76 year old male who presents today for a cardiovascular medicine follow-up visit. Last seen 04/29/2021. He has a significant medical history of a CAD s/p scending and Hybrid Aortic arch repair with a Frozen elephant trunk and stent to the LSCA (B-SAFER), AVr, CABGx3 (SEBASTIAN-LAD, SVG-seq to Ramus and OM1), LAAC on 02/21/2021, CKD stage 3, thyroid nodule, CVA, remote lymphoma. Postoperatively had a mechanical fall that resulted in several rib fractures and had blurred vision due to CVA during ascending aortic arch repair. On 05/05/2021 he underwent successful TEVAR extension. Today, he is accompanied by his daughter. Overall doing well. Still struggles with blurred vision. Recovered well from TEVAR. Follows up with ENT for ongoing evaluation of vocal cords. He denies chest pain, shortness of breath, orthopnea, cough, edema, palpitations, PND, lightheadedness or syncope. Presents for assessment of abnormal CT. Social History: Still grieving the of his ~ 2 years ago. PAST MEDICAL HISTORY Diagnosis Date Basal cell carcinoma of nose Hemorrhage of gastrointestinal tract, unspecified Internal hemorrhoids without mention of complication Other malignant lymphomas, unspecified site, extranodal and solid organ sites PAST SURGICAL HISTORY Procedure Laterality Date APPENDECTOMY COLONOSCOPY FLX DX W/COLLJ SPEC WHEN PFRMD 1995 Colonoscopy COLONOSCOPY FLX DX W/COLLJ SPEC WHEN PFRMD Colonoscopy by Dr. Torres MIDLINE INSERTION/CONSULT 02/27/2021 PAST SURGICAL HISTORY OF bx of lumps on left lower shoulder PAST SURGICAL HISTORY OF Basal Cell Carcinoma of nose removed PAST SURGICAL HISTORY OF 2013 surgery to remove scar tissue in lung done at [place] SIGMOIDOSCOPY FLX DX W/COLLJ SPEC BR/WA IF PFRMD 05/31/1987 Sigmoidoscopy, flexible SIGMOIDOSCOPY FLX DX W/COLLJ SPEC BR/WA IF PFRMD 03/02/05 Sigmoidoscopy, flexible TONSILLECTOMY PRIMARY/SECONDARY <AGE 13 Tonsillectomy Social History Tobacco Use Smoking status: Former Types: Cigarettes Smokeless tobacco: Never Tobacco comments: very remotely Vaping Use Vaping Use: Never used Substance Use Topics Alcohol use: No Drug use: No FAMILY HISTORY Problem Relation Age of Onset Emphysema Father Thyroid Mother None Sister None Sister None Sister None Brother None Brother other (kidney tumor) Brother other (spine problem) Sister ALLERGIES No Known Allergies MEDICATIONS: furosemide (LASIX) 20 mg tablet^Take 1 tablet by mouth once daily.^Disp: 90 tablet^Rfl: 3 atorvastatin (LIPITOR) 80 mg tablet^Take 1 tablet by mouth once daily.^Disp: 90 tablet^Rfl: 3 potassium chloride (K-TAB) 10 mEq tablet^Take 1 tablet by mouth once daily.^Disp: 90 tablet^Rfl: 3 lisinopril 2.5 mg tablet^Take 1 tablet by mouth once daily. NEED APPT FOR FURTHER REFILLS.^Disp: 90 tablet^Rfl: 3 metoprolol succinate ER (TOPROL XL) 100 mg^Take 1 tablet by mouth once daily. NEED APPT FOR FURTHER REFILLS.^Disp: 90 tablet^Rfl: 3 aspirin, enteric coated (ASPIR-81) 81 mg EC tablet^Take 1 tablet by mouth once daily. NEED APPT FOR FURTHER REFILLS.^Disp: 90 tablet^Rfl: 0 iv contrast (will be provided with radiology test)^CTA CHEST (NONGATED) ABD/PEL WO/W IVCON - No IV access, insert saline lock prior to the sedation, infusion, injection for imaging exam. Discontinue saline lock post exam. If Pt. has a central line or IVAD, may access for administration according to line specific nursing protocol. Once exam is complete flush line and de-access according to line specific nursing protocol in the CT contrast administration guidelines link.^Disp: 1 Each^Rfl: 0 REVIEW OF SYSTEMS: GENERAL: Negative for: Weight loss or gain, Fever or Chills, Weakness and Sleep difficulties. HEENT: Negative for: Headache, Impaired Vision, Glasses, Hearing Impairment, Ringing in Ears, Nosebleeds, Poor dental care, Bleeding Gums, Dentures NECK: Negative for: Swelling, Pain, Stiffness RESPIRATORY: Negative for: Cough, Blood in Sputum, Shortness of breath, Wheezing, Apnea GASTROINTESTINAL: Negative for: Trouble swallowing, Heartburn, Change in bowel habits, Blood in stool, Dark black stools MUSCULOSKELETAL: Negative for: Muscle or joint pain, Stiffness , Joint swelling NEUROLOGIC/PSYCHIATRIC: Negative for: Weakness, Paralysis, Numbness, Tingling, Tremor, Nervousness, Depressed mood, Memory loss SKIN: Negative for: Rashes, Itching HEMATOLOGICAL/LYMPHATIC: Negative for: Easy bruising , Easy bleeding ENDOCRINE: Negative for: Heat or cold intolerance, Excessive sweating, Frequent urination, Frequent thirst PHYSICAL EXAMINATION: BP 115/58 (BP Site: Right Arm) Pulse (!) 59 Resp 18 Wt 97.5 kg (215 lb) SpO2 94% BMI 29.16 kg/m General: Well appearing, in no acute distress. Skin: No clubbing, no cyanosis. Eyes: Extra ocular movements intact Oropharynx: Teeth in good repair. Neck: No jugular venous distention, no carotid bruits, carotids have a normal upstroke, no palpable thyromegaly. Lungs: Clear to auscultation bilaterally, no wheezing or rhonchi. Heart: Regular rhythm, PMI not displaced, S1, S2 normal, no S3, no S4, no heaves, no rub and no murmur. Abdomen: Soft, nontender, bowel sounds normal, no palpable organomegaly, no bruits. Extremities: No peripheral edema . Grade 2/4 distal pulses bilaterally. Neuro: Oriented to person, place and time, alert, cooperative, gait coordinated. CARDIOVASCULAR MEDICINE TESTING: ECG 07/28/2022 Diagnosis: SINUS BRADYCARDIA WITH 1ST DEGREE AV BLOCK WITH FREQUENT PREMATURE VENTRICULAR COMPLEXES CANNOT EXCLUDE INFERIOR MYOCARDIAL INFARCTION , AGE UNDETERMINED ABNORMAL ECG CTA 06/07/2022 The CTA was compared to a recent prior study from 2022 performed and interpreted at [facility]. There is no significant interval change of aortic anatomy. TTE 05/12/2022 CONCLUSIONS: - Exam indication: AVR, Ascending/Arch repair, CABG (02/2021) - The left ventricle is normal in size. There is mild concentric left ventricular hypertrophy. Left ventricular systolic function is mildly decreased. EF = 51 5% (2D 4-ch.) - The right ventricle is normal in size. Right ventricular systolic function is normal. Mild TR. - The visualized aorta is dilated with a maximal dimension of 4.1 cm. - S/P aortic valve repair. There is mild (1+ - 2+) aortic valve regurgitation. The peak gradient is 11 mmHg and the mean gradient is 6 mmHg. Prior pk/mn gradient 7/4mmHg. - Exam was compared with the prior echocardiographic exam performed on 07/08/21, similar finidngs. TTE 07/08/2021 CONCLUSIONS: - Technically difficult exam due to body habitus. - Exam indication: Asc aorta graft with valve resuspention surgery - The left ventricle is normal in size. Left ventricular systolic function is mildly decreased. EF = 49 5% (2D biplane) Left ventricular diastolic function was not evaluated. Diastology not evaluated due to techinally difficult images. - The right ventricle is normal in size. Right ventricular systolic function is normal. - The left atrial cavity is mildly dilated. - The visualized aorta is dilated with a maximal dimension of 4.1 cm. - S/P aortic valve repair. There is mild (1+ - 2+) aortic valve regurgitation. The peak gradient is 7 mmHg, the mean gradient is 4 mmHg and the dimensionless valve index is 0.56. Prior pk/mn gradients were 6/4mmHg. The extent of AI might be an underestimate due to eccentricity of the jet (Clip # 41, 56, 65, 72 and 74). - Exam was compared with the prior CC echocardiographic exam performed on 04/29/21. AI was better visualized today. Extended Telemetry 05/14 - 05/28/2021 Patient had a min HR of 49 bpm, max HR of 138 bpm, and avg HR of 62 bpm. Predominant underlying rhythm was Sinus Rhythm. First Degree AV Block was present. 3 Supraventricular Tachycardia runs occurred, the run with the fastest interval lasting 17.9 secs with a max rate of 138 bpm (avg 114 bpm); the run with the fastest interval was also the longest. Some episodes of Supraventricular Tachycardia may be possible Atrial Tachycardia with variable block. Isolated SVEs were rare (<1.0%), SVE Couplets were rare (<1.0%), and SVE Triplets were rare (<1.0%). Isolated VEs were rare (<1.0%, 1289), VE Couplets were rare (<1.0%, 31), and VE Triplets were rare (<1.0%, 2). Ventricular Trigeminy was present. Laboratory Testing 07/28/22 14:34 Creatinine 1.69 (H) NT Pro BNP 5,213 (H) eGFR 42 (L) Cholesterol, Total 200 (H) Triglyceride 192 (H) Fasting Time 0 HDL Cholesterol 43 LDL Cholesterol 119 (H) VLDL Cholesterol 38 (H) TC:HDL Ratio 4.65 LDL:HDL Ratio 2.77 (H) Non HDL Cholesterol 157 (H) (H): Data is abnormally high (L): Data is abnormally low IMPRESSION: Mr. Oropeza is a 76 year old male with a history of aortic dissection s/p ascending and hybrid aortic arch repair with a Frozen elephant trunk and a stent to the LSCA (B-SAFER), AVr, CABGx3 (SEBASTIAN-LAD, SVG-seq to Ramus and OM1), LAAC on 02/21/2021, CKD stage 3, thyroid nodule, CVA, remote history of lymphoma. Descending TEVAR 05/05/2021. PLAN AND RECOMMENDATIONS: Aortic Dissection. Now s/p successful ascending and hybrid aortic arch repair with a Frozen elephant trunk and a stent to the LSCA (B-SAFER), AVr, CABGx3 (SEBASTIAN-LAD, SVG-seq to Ramus and OM1), LAAC on 02/21/2021 and TEVAR 05/05/2021. Repeat CTA performed locally for unclear indications - no symptoms. Review with our radiology department shows no significant interval change. Secondary risk factor prevention as outlined below. Coronary artery disease. Status post CABG x3. Secondary prevention measures as outlined below. For lifelong aspirin therapy. HFpEF. Unclear etiology. Elevated NT proBNP and increased pedal oedema. Continue low dose diuretic therapy. Repeat extended dye range operator cloth to rule out pAF as possible precipitant. Recent echo, unremarkable. Differential diagnosis should consider dysrhythmia, hypertensive as well as infiltrative cardiomyopathy. Cardiac risk factor modification. Essential hypertension. Evidence of LVH on echocardiogram, and history of aortic dissection. Blood pressure goal 120/80 mmHg. Continue metoprolol. Decrease lisinopril to optimize BP control in the setting of prediabetes and CKDIII. Dyslipidemia. LDL above goal (180 mg/dL per most recent panel) Warrants high intensity statin. Initiated Atorvastatin 80 mg. Discussed dietary changes and increasing the level of activity. Paroxysmal atrial fibrillation. Extended telemetry suggests unremarkable burden of ectopy. Continue metoprolol. ASA. Low threshold to initiate anticoagulant for secondary prevention of stroke if has recurrence. Follow-up. In approximately 6 months time with repeat lipid panel and ECG. Encouraged patient to begin activity. Thank you very much for involving the care of your patient. Sincerely, Jonel Cleary MD CONTACT INFORMATION: Jonel Cleary MD, MSc, FRCPC, FACC Section of Clinical Cardiology Desk [address] [place] [address] Addendum: High burden of PVCs on heart monitor. For repeat ischaemic testing and consideration of increased metoprolol dosing. Bring back to clinic to reassess heart failure in this setting. Jonel Cleary MD September 20, 2022 10:38 AM documented in this encounter [facility] 07-26-2022 Miscellaneous Notes Called patient's dtr regarding appointment change from 07/27/2022 to 07/28/[address] Cleary. She was agreeable and said she would call office back if she can't make it. Regino Toth documented in this encounter [facility] 07-12-2022 Miscellaneous Notes Per ramp: make appt-if cannot get in to see ramp, see [email or web address]. Have imaging sent over by admin. When he comes, have echo scheduled beforehand, and cbc, cmp, nt pro bnp, lipid panel. July 04, 2022 Patient Contact Number: [phone] - marino Brink Patient last seen within the last year: Yes Date of last office visit: 07/08/2021 Reason For Call: Patient had a CT scan done locally around 06/07/2022. They stated that he had a leaky valve that was leaking into his abdominal region, from aortic endograft stent. Patient has an aortic stent and had surgery done by Dr. Lu back in 02/2021 and again in 04/2020. She had questions about the CT results and was told by that department that patient needs to be seen by the Clinic. I also gave her the number to Dr. Lu's office as well. Physician: Jonel Cleary MD Patient was informed that non-urgent calls may be returned within the next three business days. Yes Regino Toth documented in this encounter [facility] 07-10-2022 Miscellaneous Notes Pt is established with krystin Cleary referral for f/u visit and ekg 07/10 Patient: Lamont Oropeza Date of : 1945 Patient phone number: [phone] Referring Provider for the encounter: Velia Mojica MD Requesting Provider: Dr. Lu Reason for requesting visit (RFV/signs and symptoms/diagnosis): valve leak from 06/05/22 CT Person calling: self Return call to: self Medical Records/Insurance Card scanned into [employer]: Yes Comments: via [facility] fax documented in this encounter [facility] 05-12-2022 Note HNO ID: [id number] Author: Rosetta Lu MD Service: ? Author Type: Physician Type: Progress Notes Filed: 05/16/2022 6:41 PM Note Text: FOLLOW-UP Aorta Dissection, Chronic Aortic Dissection (s/p Previous Total arch replacement FET). Patient Type: Established PCP: Chetan Herrera [address] [place], [place] [id number] Other Physician: SELF Patient Mr. Oropeza returns, now 12 months following the endovascular repair of his arch, ascending, Aortic Dissection. The patient is asymptomatic but does have some diastolic heart failure that seems to respond well to diuretic therapy and is being managed well with his home rn clinical documentation specialist. SURGERY DATE: 05/05/2021 Surgeon: Rosetta Lu MD PROCEDURE(S): Right Groin Cutdown, Left Brachial Artery Access, IVUS assessment, TEVAR Extension ([place] cTAG [id number], [id number], 37x 150), Balloon Fraction Fenestration, Aortogram withType 1A Endoleak Identified at previous subclavian stenting site treated with Adena Viabahn VBX stent, Completion Angiogram, Primary Repair of RCFA. SURGERY DATE: 02/21/2021 Surgeon: Rosetta Lu MD PROCEDURE(S): Ascending and Hybrid Aortic arch repair with a Frozen elephant trunk and stent to the LSCA (B-SAFER), AVr, CABGx3 (SEBASTIAN-LAD, SVG-seq to Ramus and OM1), LAAC The CT scan was reviewed and reveals a maximum aortic diameter of 76 mm in the area of stented aortic Arch. There is a focal flap noted just distal to the stent graft The echocardiogram shows mild left ventricular dysfunction of 49% and mild aortic regurgitation, s/p AV repair Impression: The patient is doing ok after aortic repair, cardiac surgery, and the last visit. Plan: He will return to see me in 12 months The following studies will be necessary: - CT C/A/P with and without contrast, post stent - Echocardiogram I spent 20 minutes in this visit, with more than 50% of the time devoted to patient counseling. Rosetta Lu MD [facility] 05-12-2022 Note HNO ID: [id number] Author: Violetta Deng, Research Coordinator Service: ? Author Type: Research Type: Progress Notes Filed: 05/15/2022 12:07 PM Note Text: IRB : FABRICIO PI: Dr. Lu Study Visit: Follow up I met with the patient for the 3 month follow up for the Quintin-GRAY Study. Reaffirmed that the patient still wishes to participate in the study and continues to consent to the study. Has the patient had any changes in his health since the last study visit? No Medications and allergy lists updated and current. Has the patient had any outside hospitalizations/ER visits: No Dates and locations: NA Patient notes scheduled Laryngoplasty 09/20/[address] Aguilar with otolaryngology for vocal fold paralysis, and has seen great improvement. Modified Philippe completed: Yes Modified Philippe Score: 2 = Slight disability; unable to carry out all previous activities, but able to look after own affairs without assistance Discussed with the patient the importance of follow up in the study. He verbalized understanding. Next study visit will be in 12 mos Patient contact information reaffirmed and updated. Coordinator contact information provided to the patient. Education provided: Protocol, Protocol required tests/procedures, and Follow up requirements/schedule Materials dispensed: Coordinator Contact Card Violetta Deng, Research Coordinator Pager #: [phone] [facility] 05-12-2022 History of Present illness Narrative IRB : FABRICIO PI: Dr. Lu Study Visit: Follow up I met with the patient for the 3 month follow up for the B-SAFER Study. Reaffirmed that the patient still wishes to participate in the study and continues to consent to the study. Has the patient had any changes in his health since the last study visit? No Medications and allergy lists updated and current. Has the patient had any outside hospitalizations/ER visits: No Dates and locations: NA Modified Philippe completed: Yes Modified Philippe Score: 2 = Slight disability; unable to carry out all previous activities, but able to look after own affairs without assistance Discussed with the patient the importance of follow up in the study. He verbalized understanding. Next study visit will be in 12 mos Patient contact information reaffirmed and updated. Coordinator contact information provided to the patient. Education provided: Protocol, Protocol required tests/procedures, and Follow up requirements/schedule Materials dispensed: Coordinator Contact Card Violetta Deng Research Coordinator Pager #: [phone] documented in this encounter [facility] 05-12-2022 Note HNO ID: [id number] Author: RT Harjinder(Lore) Service: Radiology Author Type: Technologist Type: Progress Notes Filed: 05/12/2022 11:24 AM Note Text: Radiology Service Progress Note PATIENT NAME: Lamont Oropeza DATE OF SERVICE: May 12, 2022 TIME: 11:24 AM PATIENT IDENTITY VERIFICATION COMPLETED USING TWO (2) IDENTIFIERS: Name and Date of confirmed by patient verbally. FALL SCREENING: Has the patient had 2 falls in the last year or 1 fall with injury or currently using an Ambulatory Assistive Device (Walker, Cane, Wheelchair, Crutches, etc.)? No PATIENT GENDER DATA: Male PATIENT RELEVANT IMPLANT DATA REVIEWED: Yes RADIOLOGY DEPARTMENT: CT; Exam(s) Completed: Cardiac PERIPHERAL IV DATA: Site assessment: Clean,Dry and Intact, Site disposition Discontinued SIGNED BY: RT Harjinder(R) May 12, 2022 11:24 AM [facility] 05-12-2022 Note HNO ID: [id number] Author: Melissa Wellington RN Service: Radiology Author Type: Registered Nurse Type: Progress Notes Filed: 05/12/2022 10:33 AM Note Text: Radiology Service Progress Note DATE OF SERVICE: May 12, 2022 TIME: 10:20 AM PATIENT WEIGHT: 214LBS PATIENT IDENTITY VERIFICATION COMPLETED USING TWO (2) STANDARD IDENTIFIERS: Name and Date of confirmed by patient verbally and Name and Date of confirmed by identification band. FALL SCREENING: Has the patient had 2 falls in the last year or 1 fall with injury or currently using an Ambulatory Assistive Device (Walker, Cane, Wheelchair, Crutches, etc.)? No PATIENT GENDER DATA: Male ALLERGIES: Reviewed and unchanged CONTRAST ALLERGY: No EXAM: CT -CONTRAST INDUCED NEPHROPATHY RISK FACTORS: Patient age > 60 years and Congestive Heart Failure (CHF) CREATININE: Creatinine Date Value Ref Range Status 06/24/2021 1.31 (H) 0.73 - 1.22 mg/dL Final 05/18/2021 1.55 (H) 0.73 - 1.22 mg/dL Final Creatinine (POCT) Date Value Ref Range Status 05/12/2022 1.60 (A) 0.7 - 1.4 mg/dL Final eGFR (POCT) Date Value Ref Range Status 05/12/2022 44 mL/min/1.73 m2 Final eGFR- Date Value Ref Range Status 2021 >60 Final P.O.C.T. RESULTS: POC done: Yes, See Lab Tab May 12, 2022 TREATMENT: No Hydration needed. IV SITE: Ambulatory: A peripheral IV was started in the Right antecubital site with a Angio cath: 20 gauge. and A Saline lock was inserted per protocol IV SITE APPEARANCE: Clean,Dry and Intact SIGNATURE: Melissa Wellington RN PATIENT NAME: Lamont Oropeza DATE: May 12, 2022 TIME: 10:20 AM [facility] 11-23-2021 Instructions Jennifer Dominguez MD - 11/23/2021 8:48 AM EDT Now that you have had a laryngoplasty, you will need to undergo several precautions for the rest of your life when you undergo general anesthesia to make sure that the prosthesis in your vocal cord remains in the right position. Movement of the prosthesis could result in a worse voice. These recommendations should be relayed to your anesthesiologist before every surgery in the future. 1- Avoid intubation if possible (use another method, such as an LMA). 2- If intubation is necessary, use the smallest tube that can be used safely. 3- Please ask to receive a dose of perioperative steroids. 4- The anesthesiologist should deflate the endotracheal tube completely before extubation. 5- Both intubation AND extubation should occur under direct visualization of the full length of the true vocal cords to make sure that the implant is not dislodged. With these precautions, and the likelihood of complication or dislodgment of the prosthesis is fairly small. Again, please review these recommendations with your anesthesiologist and surgeon before any procedure in the future to maintain the best voice. If they or you have any questions, please have them contact Dr Aguilar's office directly. documented in this encounter [facility] 11-23-2021 History of Present illness Narrative CC: Lamont Oropeza is a 76 year old male seen as a return patient with a history of left vocal fold paralysis. IMPRESSION AND PLANS: Doing well 2 months s/p left medlialization laryngoplasty 09/20/21. Cord appears very well medialized and patient has no complaints except for occasional hoarseness in the mornings. We will plan to see him back for a last check in 6-8 months. He notes that his voiced fluctuates with the weather and may have seasonal allergies or non-allergic rhinitis. He is doing well with this and no treatment recommended at this andrei although he can use a steroid nasal spray as needed. HPI: 76 yo male with left VC paralysis s/p left medialization laryngoplasty 09/20/21. Last seen 09/21/21 at that time plan was: Doing well 1 day after her medialization laryngoplasty for a vocal fold paralysis. The patient has been instructed as to wound care and voice use, and will avoid heavy lifting or straining for 2 weeks. Followup in 2 weeks for a virtual visit and then in 6-8 weeks unless there is difficulty in the interim. Today he reports a strong voice he is happy with and denies dysphagia. ALLERGIES No Known Allergies Current Outpatient Medications Medication Sig lisinopril (ZESTRIL, PRINIVIL) 5 mg tablet Take 1 tablet by mouth once daily. metoprolol succinate ER (TOPROL XL) 100 mg Take 1 tablet by mouth once daily. atorvastatin (LIPITOR) 80 mg tablet Take 1 tablet by mouth once daily. aspirin, enteric coated (ASPIR-81) 81 mg EC tablet Take 1 tablet by mouth once daily. Current Facility-Administered Medications Medication Dose Route Frequency perflutren lipid microspheres 1.3 mL in NaCl (PF) 0.9% 10 mL injection (DEFINITY) INTRAVENOUS DIRECTED PRN sodium chloride 0.9 % (flush) 10 mL (BD POSIFLUSH) 10 mL INTRAVENOUS DIRECTED PRN perflutren lipid microspheres 1.3 mL in NaCl (PF) 0.9% 10 mL injection (DEFINITY) INTRAVENOUS DIRECTED PRN sodium chloride 0.9 % (flush) 10 mL (BD POSIFLUSH) 10 mL INTRAVENOUS DIRECTED PRN perflutren lipid microspheres 1.3 mL in NaCl (PF) 0.9% 10 mL injection (DEFINITY) INTRAVENOUS DIRECTED PRN sodium chloride 0.9 % (flush) 10 mL (BD POSIFLUSH) 10 mL INTRAVENOUS DIRECTED PRN PAST MEDICAL HISTORY Diagnosis Date Basal cell carcinoma of nose Hemorrhage of gastrointestinal tract, unspecified Internal hemorrhoids without mention of complication Other malignant lymphomas, unspecified site, extranodal and solid organ sites PAST SURGICAL HISTORY Procedure Laterality Date APPENDECTOMY COLONOSCOPY FLX DX W/COLLJ SPEC WHEN PFRMD 1995 Colonoscopy COLONOSCOPY FLX DX W/COLLJ SPEC WHEN PFRMD Colonoscopy by Dr. Torres MIDLINE INSERTION/CONSULT 02/27/2021 PAST SURGICAL HISTORY OF bx of lumps on left lower shoulder PAST SURGICAL HISTORY OF Basal Cell Carcinoma of nose removed PAST SURGICAL HISTORY OF 2013 surgery to remove scar tissue in lung done at [place] SIGMOIDOSCOPY FLX DX W/COLLJ SPEC BR/WA IF PFRMD 05/31/1987 Sigmoidoscopy, flexible SIGMOIDOSCOPY FLX DX W/COLLJ SPEC BR/WA IF PFRMD 03/02/05 Sigmoidoscopy, flexible TONSILLECTOMY PRIMARY/SECONDARY <AGE 13 Tonsillectomy Social History: Social History Tobacco Use Smoking status: Former Types: Cigarettes Smokeless tobacco: Never Tobacco comments: very remotely Vaping Use Vaping Use: Never used Substance Use Topics Alcohol use: No Drug use: No CHARTS REVIEWED Previous laryngoscopy and op report reviewed PHYSICAL EXAM: On physical examination Lamont Oropeza is a well-developed, well nourished male. The voice is strong . Cranial nerves II-XII are grossly intact Mental status revealed patient to be alert and oriented. Mood is appropriate. Details of the physical examination: HEAD AND FACE: Physical examination of the head, neck, external nose, external ears, mouth and face fails to demonstrate any significant abnormality or asymmetry to critical face to face observation. Skin and scalp are normal. ORAL CAVITY/OROPHARYNX: no leisons or masses LARYNX: Recommend flexible laryngoscopy with stroboscopy NECK: kyphosis, neck incision healed well, no masses or lesions VHI: P:9, F:6, E:5, Total:20 MPT: 20 seconds PROCEDURE NOTE: Recommended Videostroboscopy. Risks, benefits and alternatives were explained. The patient wished to proceed he was reidentified and a time out obtained. PROCEDURE: Videostroboscopy PREOPERATIVE DIAGNOSIS: left VC paralysis POSTOPERATIVE DIAGNOSIS: left VC paralysis INDICATIONS: Evaluation larynx to:assess vibratory margin ANESTHESIA: Lidocaine and Phenylephrine PROCEDURE: With the patient sitting upright, a flexible scope was used : Topical anesthesia and vasoconstriction was applied with spray to the right and left side(s) of the nose. After waiting an appropriate period of time for anesthesia/vasoconstriction to become effective, a flexible laryngoscope was passed through the left side(s) of the nose. Nasopharynx was normal. FINDINGS: The nasopharynx was normal without any lesions or masses visualized. No masses or lesions were visualized at the base of tongue, vallecula, epiglottis, aryepiglottic folds, pyriform sinuses, and lateral pharyngeal garrett. True vocal fold movement was immobile left. No lesions visualized. Mucosal wave was noted to be present bilaterally but diminished on the left. Amplitude was decreased left. Closure was complete. Phase symmetry was Absent The patient's airway was widely patent with no evidence of obstruction. Pt tolerated the procedure well, and there were no complications. The procedure was performed by Dr. Aguilar. Jennifer Dominguez MD Given the patient's history and physical examination, the above procedure was recommended. We reviewed the risks, benefits, alternatives, and what to expect from the procedure and informed consent was obtained from the patient. The patient wished to proceed. I performed or was present for the quiroz portions or the entirety of the procedure. Melvin Aguilar MD I participated in the history and physical exam of Lamont Yadav Oropeza. I discussed the management of Lamont Oropeza with the resident. I reviewed the note and agree with the documented findings and plan of care. Melvin Aguilar MD Medical Decision Making: Problems: Low: Stable chronic illness Risk: Low: Low risk from testing/treatment Medical Decision Making Level: 3 - Low documented in this encounter [facility] 11-23-2021 Nurse Note Tobacco Use: Types: Cigarettes Was smoking cessation packet given? N/A - Patient is a non-smoker or quit >1 year ago. Was a referral initiated?N/A Patient is a non-smoker documented in this encounter [facility] 11-22-2021 Note ORIGINAL EXAMINATION: PET TUMOR IMAGING SKULL-THIGH11/22/2021 8:54 am TECHNIQUE: Intravenous injection of 15.1 mCi Fluorine-18 fluorodeoxyglucose (FDG) was administered, followed by acquisition of positron emission tomographic images from the skull base to mid thigh, with concurrent low-dose CT for attenuation correction and anatomic localization utilizing a combined PET/CT scanner. PET images were fused with low-dose CT at the workstation. Dose [id number] time:73 minutes for whole-body, 99 minutes for neck Serum glucose level: 98 mg/dl COMPARISON: PET/CT on 03/14/2019 HISTORY: ORDERING SYSTEM PROVIDED HISTORY: Reason for Exam: 85-year-old male with restaging following treatment for non-Hodgkin's lymphoma. Status post rituximab. FINDINGS: NECK: No hypermetabolic soft tissue lesion within the neck. No hypermetabolic cervical lymph nodes. Resolution of the bilateral neck lymphadenopathy. CHEST: No hypermetabolic parenchymal pulmonary nodule. No hypermetabolic mediastinal, hilar, or axillary lymphadenopathy. Resolution of the mediastinal lymphadenopathy. 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 These appear larger when compared to the PET/CT on 03/14/2019, although exact evaluation is difficult secondary to lack of IV contrast. Long segment descending aortic and proximal left subclavian stent grafts are present. Trace left pleural effusion. ABDOMEN/PELVIS: No hypermetabolic soft tissue lesion. No hypermetabolic abdominal or pelvic lymphadenopathy. Resolution of the abdominal lymphadenopathy with minimal residual central mesenteric fat stranding. Physiologic excretion of radiotracer is present within the kidneys, ureters, urinary bladder, as well as the bowel. Descending and sigmoid colonic diverticulosis without diverticulitis. Bilateral renal cysts are slightly larger than the prior study. Mild right femoral stranding is likely postsurgical or postprocedural. MUSCULOSKELETAL: Focal uptake at the right posterior body of the mandible with max SUV of 5.5, appearing more intense than the prior study. Focal uptake in the manubrium at the sternotomy site with max SUV of 3.3 favors postsurgical and/or inflammatory changes. No additional sites of osseous or marrow of lymphomatous involvement. IMPRESSION: 1. No evidence of hypermetabolic lymphadenopathy. Deauville score 1. 2. Focal uptake in the right posterior body of the mandible appears slightly more intense than the prior study, possibly related to dental disease. Direct visual inspection should be considered. 3. Aortic and proximal left subclavian stent grafts are present. 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 Given interval enlargement, comparison to any more recent outside prior imaging versus CTA chest recommended to evaluate for an endoleak. I have personally reviewed the images of this examination and agree with the resident's findings and interpretation. Interpreted by: Aditya Hernandez DO Preliminary Report By: Marcelino Cook Electronically signed By Aditya Hernandez DO Dictated Date: 11/22/2021 9:08:45 AM Prelim Date: 11/22/2021 12:51:44 PM Sign Date: 11/22/2021 12:51:44 PM Ordering Provider: CINDY RAMIREZ [facility] 11-22-2021 Note ORIGINAL EXAMINATION: PET TUMOR IMAGING SKULL-THIGH11/22/2021 8:54 am TECHNIQUE: Intravenous injection of 15.1 mCi Fluorine-18 fluorodeoxyglucose (FDG) was administered, followed by acquisition of positron emission tomographic images from the skull base to mid thigh, with concurrent low-dose CT for attenuation correction and anatomic localization utilizing a combined PET/CT scanner. PET images were fused with low-dose CT at the workstation. Dose [id number]-al-[id number] time:73 minutes for whole-body, 99 minutes for neck Serum glucose level: 98 mg/dl COMPARISON: PET/CT on 03/14/2019 HISTORY: ORDERING SYSTEM PROVIDED HISTORY: Reason for Exam: 85-year-old male with restaging following treatment for non-Hodgkin's lymphoma. Status post rituximab. FINDINGS: NECK: No hypermetabolic soft tissue lesion within the neck. No hypermetabolic cervical lymph nodes. Resolution of the bilateral neck lymphadenopathy. CHEST: No hypermetabolic parenchymal pulmonary nodule. No hypermetabolic mediastinal, hilar, or axillary lymphadenopathy. Resolution of the mediastinal lymphadenopathy. 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 These appear larger when compared to the PET/CT on 03/14/2019, although exact evaluation is difficult secondary to lack of IV contrast. Long segment descending aortic and proximal left subclavian stent grafts are present. Trace left pleural effusion. ABDOMEN/PELVIS: No hypermetabolic soft tissue lesion. No hypermetabolic abdominal or pelvic lymphadenopathy. Resolution of the abdominal lymphadenopathy with minimal residual central mesenteric fat stranding. Physiologic excretion of radiotracer is present within the kidneys, ureters, urinary bladder, as well as the bowel. Descending and sigmoid colonic diverticulosis without diverticulitis. Bilateral renal cysts are slightly larger than the prior study. Mild right femoral stranding is likely postsurgical or postprocedural. MUSCULOSKELETAL: Focal uptake at the right posterior body of the mandible with max SUV of 5.5, appearing more intense than the prior study. Focal uptake in the manubrium at the sternotomy site with max SUV of 3.3 favors postsurgical and/or inflammatory changes. No additional sites of osseous or marrow of lymphomatous involvement. IMPRESSION: 1. No evidence of hypermetabolic lymphadenopathy. Deauville score 1. 2. Focal uptake in the right posterior body of the mandible appears slightly more intense than the prior study, possibly related to dental disease. Direct visual inspection should be considered. 3. Aortic and proximal left subclavian stent grafts are present. 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 Given interval enlargement, comparison to any more recent outside prior imaging versus CTA chest recommended to evaluate for an endoleak. I have personally reviewed the images of this examination and agree with the resident's findings and interpretation. Interpreted by: Aditya Hernandez DO Preliminary Report By: Marcelino Cook Electronically signed By Aditya Hernandez DO Dictated Date: 11/22/2021 9:08:45 AM Prelim Date: 11/22/2021 12:51:44 PM Sign Date: 11/22/2021 12:51:44 PM Ordering Provider: CINDY RAMIREZ [facility] 09-21-2021 Instructions Melvin Aguilar MD - 09/21/2021 8:32 AM EDT Now that you have had a laryngoplasty, you will need to undergo several precautions for the rest of your life when you undergo general anesthesia to make sure that the prosthesis in your vocal cord remains in the right position. Movement of the prosthesis could result in a worse voice. These recommendations should be relayed to your anesthesiologist before every surgery in the future. 1- Avoid intubation if possible (use another method, such as an LMA). 2- If intubation is necessary, use the smallest tube that can be used safely. 3- Please ask to receive a dose of perioperative steroids. 4- The anesthesiologist should deflate the endotracheal tube completely before extubation. 5- Both intubation AND extubation should occur under direct visualization of the full length of the true vocal cords to make sure that the implant is not dislodged. With these precautions, and the likelihood of complication or dislodgment of the prosthesis is fairly small. Again, please review these recommendations with your anesthesiologist and surgeon before any procedure in the future to maintain the best voice. If they or you have any questions, please have them contact Dr Aguilar's office directly. The current dressing should stay on for 24 hours. It can be removed tomorrow. You can begin showering once it has been removed. There may be a small amount of drainage from the drain site. Place a small amount of topical medicated ointment (like bacitracin) and cover with a small Band-Aid in a vertical direction. The Steri-Strips were beginning to come off in 5-7 days. When they are no longer adhering gently remove them. Once the Steri-Strips have come off you can wash the area with a gentle soap on your fingers. Do not do any heavy lifting or straining for 1 week from the day of the surgery. Avoid significant sun contact the area for 6 months as this may result in change in the color of the scar. documented in this encounter [facility] 09-21-2021 History of Present illness Narrative CC: Lamont Oropeza is a 76 year old male seen as a return patient with a history of vocal fold paralysis. IMPRESSION AND PLANS: Doing well 1 day after her medialization laryngoplasty for a vocal fold paralysis. The patient has been instructed as to wound care and voice use, and will avoid heavy lifting or straining for 2 weeks. Followup in 2 weeks for a virtual visit and then in 6-8 weeks unless there is difficulty in the interim. HPI: Status post medialization laryngoplasty yesterday. There has been no significant problems overnight. There's been no difficulty with breathing or with bleeding. His voice is essentially normal ALLERGIES No Known Allergies Current Outpatient Medications Medication Sig amoxicillin-clavulanic acid (AUGMENTIN) 875-125 mg per tablet Take 1 tablet by mouth twice daily for 7 days. lisinopril (ZESTRIL, PRINIVIL) 5 mg tablet Take 1 tablet by mouth once daily. metoprolol succinate ER (TOPROL XL) 100 mg Take 1 tablet by mouth once daily. atorvastatin (LIPITOR) 80 mg tablet Take 1 tablet by mouth once daily. aspirin, enteric coated (ASPIR-81) 81 mg EC tablet Take 1 tablet by mouth once daily. Current Facility-Administered Medications Medication Dose Route Frequency perflutren lipid microspheres 1.3 mL in NaCl (PF) 0.9% 10 mL injection (DEFINITY) INTRAVENOUS DIRECTED PRN sodium chloride 0.9 % (flush) 10 mL (BD POSIFLUSH) 10 mL INTRAVENOUS DIRECTED PRN perflutren lipid microspheres 1.3 mL in NaCl (PF) 0.9% 10 mL injection (DEFINITY) INTRAVENOUS DIRECTED PRN sodium chloride 0.9 % (flush) 10 mL (BD POSIFLUSH) 10 mL INTRAVENOUS DIRECTED PRN perflutren lipid microspheres 1.3 mL in NaCl (PF) 0.9% 10 mL injection (DEFINITY) INTRAVENOUS DIRECTED PRN sodium chloride 0.9 % (flush) 10 mL (BD POSIFLUSH) 10 mL INTRAVENOUS DIRECTED PRN PAST MEDICAL HISTORY Diagnosis Date Basal cell carcinoma of nose Hemorrhage of gastrointestinal tract, unspecified Internal hemorrhoids without mention of complication Other malignant lymphomas, unspecified site, extranodal and solid organ sites PAST SURGICAL HISTORY Procedure Laterality Date APPENDECTOMY COLONOSCOPY FLX DX W/COLLJ SPEC WHEN PFRMD 1995 Colonoscopy COLONOSCOPY FLX DX W/COLLJ SPEC WHEN PFRMD Colonoscopy by Dr. Torres MIDLINE INSERTION/CONSULT 02/27/2021 PAST SURGICAL HISTORY OF bx of lumps on left lower shoulder PAST SURGICAL HISTORY OF Basal Cell Carcinoma of nose removed PAST SURGICAL HISTORY OF 2013 surgery to remove scar tissue in lung done at [place] SIGMOIDOSCOPY FLX DX W/COLLJ SPEC BR/WA IF PFRMD 05/31/1987 Sigmoidoscopy, flexible SIGMOIDOSCOPY FLX DX W/COLLJ SPEC BR/WA IF PFRMD 03/02/05 Sigmoidoscopy, flexible TONSILLECTOMY PRIMARY/SECONDARY <AGE 13 Tonsillectomy Social History: Social History Tobacco Use Smoking status: Former Smoker Types: Cigarettes Smokeless tobacco: Never Used Tobacco comment: very remotely Vaping Use Vaping Use: Never used Substance Use Topics Alcohol use: No Drug use: No PHYSICAL EXAM: On physical examination Lamont Oropeza is a well-developed, well nourished male. The voice is normal. Cranial nerves II-XII are grossly intact Mental status revealed patient to be alert and oriented. Mood is appropriate. Details of the physical examination: HEAD AND FACE: Physical examination of the head, neck, external nose, external ears, mouth and face fails to demonstrate any significant abnormality or asymmetry to critical face to face observation. Skin and scalp are normal. LARYNX: Recommend flexible laryngoscopy with stroboscopy NECK: The dressing and drain were removed. The incision is doing well. Steri-Strips were applied and a small amount of bacitracin ointment was placed over the drain site. A mild pressure dressing was applied. Melvin Aguilar MD PROCEDURE NOTE: Recommended Videostroboscopy. Risks, benefits and alternatives were explained. The patient wished to proceed he was reidentified and a time out obtained. PROCEDURE: Videostroboscopy PREOPERATIVE DIAGNOSIS: Vocal fold paralysis POSTOPERATIVE DIAGNOSIS: Vocal fold paralysis INDICATIONS: Evaluation larynx to:postoperative assessment ANESTHESIA: Lidocaine 2% and Tio-Synephrine % PROCEDURE: With the patient sitting upright, a flexible scope was used : Topical anesthesia and vasoconstriction was applied with spray to the right and left side(s) of the nose. After waiting an appropriate period of time for anesthesia/vasoconstriction to become effective, a flexible laryngoscope was passed through the left side(s) of the nose. Nasopharynx was normal. FINDINGS: The nasopharynx was normal without any lesions or masses visualized. No masses or lesions were visualized at the base of tongue, vallecula, epiglottis, aryepiglottic folds, pyriform sinuses, and lateral pharyngeal garrett. True vocal fold movement was immobile left. Some bruising of the vocal fold but otherwise closed. Mucosal wave was noted to be present and equal bilaterally. Amplitude was decreased left. Closure was complete. Phase symmetry was Present The patient's airway was widely patent with no evidence of obstruction. Pt tolerated the procedure well, and there were no complications. The procedure was performed by Dr. Aguilar. Melvin Aguilar MD documented in this encounter [facility] 09-21-2021 Nurse Note Tobacco Use: Types: Cigarettes (very remotely) Was smoking cessation packet given? N/A - Patient is a non-smoker or quit >1 year ago. Was a referral initiated?N/A Patient is a non-smoker documented in this encounter [facility] 09-16-2021 Miscellaneous Notes Received a message from a RN in [facility] stating that the covid test was scheduled too early for his procedure. It was scheduled for 09-16 at 9am. (Test needs to be 72 hours or less) Surgery scheduled 09-20. Spoke with Dr. Aguilar. He was made aware that the patient will not have a results within the 72 hour window for surgery. He will proceed with surgery on 09-20. No further concerns documented in this encounter [facility] 08-31-2021 Nurse Note AMBULATORY PATIENT EDUCATION NOTE PRE-OP TEACHING TOPIC: Pre-op Teaching PROCEDURE: LARYNGOPLASTY,MEDIALIZATION,UNILA TERAL READINESS TO LEARN COGNITIVE ABILITY: Alert and oriented MOTIVATION TO LEARN: Eager Interested FAMILY SUPPORT: High - Very involved in pt care INSTRUCTION PROVIDED TO: Patient and family member PATIENT LEARNS BEST BY: Written Instruction - Hand-outs Verbal Instruction Multiple Methods FACTORS AFFECTING LEARNING: None PHYSICAL LIMITATIONS AFFECTING LEARNING: None LEARNING RESPONSE DIAGNOSIS: Left vocal fold paralysis METHOD OF INSTRUCTION: Teach Back Done Correctly Individual instruction Written instruction - handouts PATIENT / FAMILY RESPONSE: Verbalizes understanding of: PRE-OPERATIVE INSTRUCTIONS-Correct action to take to follow pre-operative instructions FOLLOW-UP PLAN: Complete - No need for follow-up SUPPLEMENTAL MATERIAL: None REFERRAL (RECOMMENDATION): None Electronically Signed By: Marlen See RN In Department: OTOLARYNGOLOGY documented in this encounter [facility] 08-31-2021 History of Present illness Narrative CC: Lamont Oropeza is a 76 year old male seen as a return patient with a history of vocal fold paralysis IMPRESSION AND PLANS: he has had a loss of voice since November and he had worsening and eventually had an aortic aneurysm repair on 02/21. He has had CT chest and chest X-rays since. Left vocal fold paralysis. He is now out at least 9 months since the onset and 7 or 8 months since he had complete dysphonia. He also has notable bilateral vocal fold bowing and thinness which will affect the results of the management of the left vocal fold paralysis. I would not recommend an office injection today as it would be temporary and it would delay for more permanent treatment. I have discussed those various treatments with him. With the neck kyphosis I do not think we will be able to perform fat injections and his gap is large enough that I suspect this would not be effective anyway. It would seem that medialization laryngoplasty with Silastic would be the best option although again access will be somewhat limited because of his inability to extend his neck. It does however appear adequate. He is scheduled for 1 last round of chemotherapy for his lymphoma that he will be doing in 10 days. We will therefore schedule this out 5 or 6 weeks after that to make sure that there was no effect from the chemotherapy. I will also arrange for him to have preanesthesia clearance. He is currently on aspirin and he would have to discontinue that 5 to 6 days before the procedure but could resume a couple days after. He will talk to his heart surgeon about that to make sure that that is okay. The bowing of the right vocal fold may effect outcome, so we may try to overcorrect slightly on the left. I have discussed the treatment options in detail with the patient including no further treatment, voice therapy, innervation, injection or medialization. At this point the patient wishes to proceed with a medialization. We discussed the risks, benefits and alternatives of the medialization laryngoplasty with silastic today with the pt including but not limited to the risk of neck hematoma/seroma, infection, airway compromise, bleeding, worsened voice, or the need for further surgery/revision. We also discussed post-operative care with including no voice use for 2-3 days with gentle voice use for 2 weeks and no heavy lifting or straining for 10-14 days. The patient did seem to understand and did wish to proceed, a consent was obtained and we will arrange this in the near future. The patient was offered a surgery/procedure at a [facility] facility. The surgeon/proceduralist and patient have discussed in detail the risk of exposure to and/or potential harm posed by the COVID-19 virus with having a surgery/procedure at this time versus the risk of delaying the surgery/procedure. It is not possible to know either the risk of delaying the surgery or procedure or chance of getting an infection with perfect accuracy, but a joint decision was made between the patient and the surgeon/proceduralist to proceed at this time with the scheduled surgery/procedure as indicated on the consent form. HPI: Saw Valorie hughes on 06/30; IMPRESSION: - Left vocal cord paralysis - Glottic insufficiency - Dysphonia PLAN: Discussed findings, diagnosis and management options with patient and daughter. -Mr. Oropeza is presenting today with changes in his voice since November 2020. Describes his voice is effortful and is unable to project his voice. Was seen by ENT near home in [place] in [place] and was told one of his vocal cords was not working correctly. On video stroboscopy exam today the left vocal cord was immobile and has bilateral vocal cord bowing with a large glottic gap with phonation. Discussed having him follow-up with the solar design engineer here to discuss further options to improve his voice including vocal cord injections and other permanent procedures. ALLERGIES No Known Allergies Current Outpatient Medications Medication Sig lisinopril (ZESTRIL, PRINIVIL) 5 mg tablet Take 1 tablet by mouth once daily. metoprolol succinate ER (TOPROL XL) 100 mg Take 1 tablet by mouth once daily. atorvastatin (LIPITOR) 80 mg tablet Take 1 tablet by mouth once daily. aspirin, enteric coated (ASPIR-81) 81 mg EC tablet Take 1 tablet by mouth once daily. Current Facility-Administered Medications Medication Dose Route Frequency perflutren lipid microspheres 1.3 mL in NaCl (PF) 0.9% 10 mL injection (DEFINITY) INTRAVENOUS DIRECTED PRN sodium chloride 0.9 % (flush) 10 mL (BD POSIFLUSH) 10 mL INTRAVENOUS DIRECTED PRN perflutren lipid microspheres 1.3 mL in NaCl (PF) 0.9% 10 mL injection (DEFINITY) INTRAVENOUS DIRECTED PRN sodium chloride 0.9 % (flush) 10 mL (BD POSIFLUSH) 10 mL INTRAVENOUS DIRECTED PRN perflutren lipid microspheres 1.3 mL in NaCl (PF) 0.9% 10 mL injection (DEFINITY) INTRAVENOUS DIRECTED PRN sodium chloride 0.9 % (flush) 10 mL (BD POSIFLUSH) 10 mL INTRAVENOUS DIRECTED PRN PAST MEDICAL HISTORY Diagnosis Date Basal cell carcinoma of nose Hemorrhage of gastrointestinal tract, unspecified Internal hemorrhoids without mention of complication Other malignant lymphomas, unspecified site, extranodal and solid organ sites PAST SURGICAL HISTORY Procedure Laterality Date APPENDECTOMY COLONOSCOPY FLX DX W/COLLJ SPEC WHEN PFRMD 1995 Colonoscopy COLONOSCOPY FLX DX W/COLLJ SPEC WHEN PFRMD Colonoscopy by Dr. Torres MIDLINE INSERTION/CONSULT 02/27/2021 PAST SURGICAL HISTORY OF bx of lumps on left lower shoulder PAST SURGICAL HISTORY OF Basal Cell Carcinoma of nose removed PAST SURGICAL HISTORY OF 2013 surgery to remove scar tissue in lung done at [place] SIGMOIDOSCOPY FLX DX W/COLLJ SPEC BR/WA IF PFRMD 05/31/1987 Sigmoidoscopy, flexible SIGMOIDOSCOPY FLX DX W/COLLJ SPEC BR/WA IF PFRMD 03/02/05 Sigmoidoscopy, flexible TONSILLECTOMY PRIMARY/SECONDARY <AGE 13 Tonsillectomy Social History: Social History Tobacco Use Smoking status: Never Smoker Smokeless tobacco: Never Used Vaping Use Vaping Use: Never used Substance Use Topics Alcohol use: No Drug use: No PHYSICAL EXAM: On physical examination Lamont A Oropeza is a well-developed, well nourished male. The voice is breathy. Cranial nerves II-XII are grossly intact Mental status revealed patient to be alert and oriented. Mood is appropriate. Details of the physical examination: HEAD AND FACE: Physical examination of the head, neck, external nose, external ears, mouth and face fails to demonstrate any significant abnormality or asymmetry to critical face to face observation. Skin and scalp are normal. ORAL CAVITY/OROPHARYNX: No masses or lesions LARYNX: Recommend flexible laryngoscopy with stroboscopy NECK: No lymphadenopathy he has prominent kyphosis of his neck leaving relatively poor access anteriorly. MPT: 3 seconds VHI: P:18, F:22, E:12, Total:52 CHARTS REVIEWED: Alice Hughes's note, Operative reports from Guy and [facility] and CT and CXR Melvin Aguilar MD PROCEDURE NOTE: Recommended Videostroboscopy. Risks, benefits and alternatives were explained. The patient wished to proceed he was reidentified and a time out obtained. PROCEDURE: Videostroboscopy PREOPERATIVE DIAGNOSIS: Left vocal fold paralysis POSTOPERATIVE DIAGNOSIS: Left vocal fold paralysis, bilateral vocal fold bowing INDICATIONS: Evaluation larynx to:assess vibratory margin and confirm diagnosis ANESTHESIA: Lidocaine 2% and Tio-Synephrine % PROCEDURE: With the patient sitting upright, a flexible scope was used : Topical anesthesia and vasoconstriction was applied with spray to the right and left side(s) of the nose. After waiting an appropriate period of time for anesthesia/vasoconstriction to become effective, a flexible laryngoscope was passed through the right side(s) of the nose. Nasopharynx was normal. FINDINGS: The nasopharynx was normal without any lesions or masses visualized. No masses or lesions were visualized at the base of tongue, vallecula, epiglottis, aryepiglottic folds, pyriform sinuses, and lateral pharyngeal garrett. True vocal fold movement was immobile left. He has bilateral thinness and bowing of the vocal folds consistent with presbylarynges he has incomplete closure and therefore I cannot assess mucosal wave..Closure was closure was absent. Phase symmetry was Absent The patient's airway was widely patent with no evidence of obstruction. Pt tolerated the procedure well, and there were no complications. The procedure was performed by Dr. Aguilar. Melvin Aguilar MD Medical Decision Making: Problems: Moderate: New problem with uncertain prognosis Data: Unique source(s) for external note(s) reviewed: 1 Unique test result(s) reviewed: 2 Unique test(s) ordered: 2 Risk: Moderate: Moderate risk from testing/treatment Medical Decision Making Level: 4 - Moderate documented in this encounter [facility] 08-31-2021 Nurse Note Tobacco Use: Never Was smoking cessation packet given? N/A - Patient is a non-smoker or quit >1 year ago. Was a referral initiated?N/A Patient is a non-smoker documented in this encounter [facility] 06-24-2021 History of Present illness Narrative Radiology Service Progress Note PATIENT NAME: Lamont Oropeza DATE OF SERVICE: June 24, 2021 TIME: 2:45 PM PATIENT IDENTITY VERIFICATION COMPLETED USING TWO (2) IDENTIFIERS: Name and Date of confirmed by patient verbally. FALL SCREENING: Has the patient had 2 falls in the last year or 1 fall with injury or currently using an Ambulatory Assistive Device (Walker, Cane, Wheelchair, Crutches, etc.)? No PATIENT GENDER DATA: Male PATIENT RELEVANT IMPLANT DATA REVIEWED: Yes RADIOLOGY DEPARTMENT: CT; Exam(s) Completed: CTA Cardiac PERIPHERAL IV DATA: Site assessment: Clean,Dry and Intact, Site disposition Discontinued SIGNED BY: RT Harjinder(Lore) June 24, 2021 2:45 PM Radiology Service Progress Note DATE OF SERVICE: June 24, 2021 TIME: 2:10 PM PATIENT WEIGHT: 203 LBS PATIENT IDENTITY VERIFICATION COMPLETED USING TWO (2) STANDARD IDENTIFIERS: Name and Date of confirmed by patient verbally and Name and Date of confirmed by identification band. FALL SCREENING: Has the patient had 2 falls in the last year or 1 fall with injury or currently using an Ambulatory Assistive Device (Walker, Cane, Wheelchair, Crutches, etc.)? Yes, Patient High Risk for Falls What interventions were put in place to prevent falls during this visit? Non-Skid Socks Used, Yellow Falls Risk Wristband Applied, Instructed Patient to Call for Help if Needed, Offered Assistance with Transfers/Clothing, Instructed Patient to Remain Seated (Not on Exam Table) Until Exam and Increased Observations by Caregivers PATIENT GENDER DATA: Male ALLERGIES: Reviewed and unchanged CONTRAST ALLERGY: No EXAM: CT -CONTRAST INDUCED NEPHROPATHY RISK FACTORS: Patient age > 60 years CREATININE: Creatinine Date Value Ref Range Status 05/18/2021 1.55 (H) 0.73 - 1.22 mg/dL Final 2021 1.33 (H) 0.73 - 1.22 mg/dL Final 05/10/2021 1.33 (H) 0.73 - 1.22 mg/dL Final Estimated Glomerular Filtration Rate Date Value Ref Range Status 05/18/2021 46 (L) >=60 mL/min/1.73m Final Comment: Estimated Glomerular Filtration Rate (eGFR) is calculated using the 2020 CKD-EPI creatinine equation. This equation utilizes serum creatinine, sex, and age as parameters. The creatinine assay has traceable calibration to isotope dilution-mass spectrometry. Refer to KDIGO guidelines for clinical interpretation. In patients with unstable renal function, e.g. those with acute kidney injury, the eGFR may not accurately reflect actual GFR. eGFR- Date Value Ref Range Status 2021 >60 Final P.O.C.T. RESULTS: N/A June 24, 2021 TREATMENT: N/A IV SITE: Ambulatory: A peripheral IV was started in the Right antecubital site with a Angio cath: 20 gauge. IV SITE APPEARANCE: Clean,Dry and Intact SIGNATURE: Suzanna Mosley PATIENT NAME: Lamont Oropeza DATE: June 24, 2021 TIME: 2:10 PM documented in this encounter [facility] 05-04-2021 History of Present illness Narrative [facility] PREOP EVALUATION CARDIOTHORACIC ANESTHESIA CARDIAC SURGERY SERVICE DATE: May 04, 2021 SERVICE TIME: 12:50 PM Proposed Surgical Procedure: Thoracic Aorta Repair Re-do: No ASA Class: 4 Surgeon: Michael Serna Date: 05/05/21 Last Wt 04/29/21 : 96.6 kg (213 lb) Last Ht 04/29/21 : 182.9 cm (6') Estimated body mass index is 28.89 kg/m as calculated from the following: Height as of 04/29/21: 182.9 cm (6'). Weight as of 04/29/21: 96.6 kg (213 lb). Lutts body weight: 77.6 kg (171 lb 1.2 oz) Adjusted ideal body weight: 85.2 kg (187 lb 13.5 oz) Estimated body surface area is 2.22 meters squared as calculated from the following: Height as of 04/29/21: 182.9 cm (6'). Weight as of 04/29/21: 96.6 kg (213 lb). 75M with PMH of HLD, basal cell carinoma of the nose, and lymphoma s/p chemo and radiation in , and chemo now Q3 months with last in January, CAD and aortic dissection s/p aortic repair, AVR, CABG, and TITI closure on 02/21/21 c/b CVA, hypernatremia, GLYNN (most recent Cr. 1.24 and GRF 57, continuing to downtrend), pafib, and dysphagia to solids, filing defect at the lower esophagus, duodenal ulcer (healed), hiatal hernia and schatzki ring s/p dilation on 04/29/21 now presenting for TEVAR due to thoracic aortic aneurysm. S/p recent fall with left sided broken ribs. Pt is being admitted and having spinal drain placed by IR. EGD 04/29/21: Impression: - Small hiatal hernia. - Mild Schatzki ring. Dilated to 18 mm with mild mucosal disruption. Since this was dilated to 18 mm, there should be no contraindication to passage of MELLISSA probe during surgery. - Normal stomach. - Normal examined duodenum. The previously seen duodenal ulcer has healed up completely. - No specimens collected. TTE 04/29/21: CONCLUSIONS: - Technically difficult exam due to suboptimal positioning. - Exam indication: TAA op+AVr+CABG follow up, pre-TEVAR - The left ventricle is normal in size. There is mild concentric left ventricular hypertrophy. Left ventricular systolic function is mildly decreased. EF = 48 5% (2D 4-ch.) - The right ventricle is normal in size. Right ventricular systolic function is normal. - S/P aortic valve repair. There is mild (1+) aortic valve regurgitation. The peak gradient is 6 mmHg, the mean gradient is 4 mmHg and the dimensionless valve index is 0.65. Prior AVr gradient 8/4 mmHg. - Exam was compared with the prior echocardiographic exam performed on 03/05/2021, visually similar findings (although last study reported LVEF 55%). Cath 02/20/21: + + IMPRESSION/PLAN + + Impression:Obstructive disease of the proximal LAD and the ostium of the ramus, with otherwise moderate diffuse disease of a dominant circumflex vessel. Recommended Treatment: Aortic surgery. Plan: Proceed with aortic repair with plans for bypass grafts to the LAD and ramus. PAST MEDICAL HISTORY Diagnosis Date Basal cell carcinoma of nose Hemorrhage of gastrointestinal tract, unspecified Internal hemorrhoids without mention of complication Other malignant lymphomas, unspecified site, extranodal and solid organ sites PAST SURGICAL HISTORY Procedure Laterality Date APPENDECTOMY COLONOSCOPY FLX DX W/COLLJ SPEC WHEN PFRMD 1995 Colonoscopy COLONOSCOPY FLX DX W/COLLJ SPEC WHEN PFRMD Colonoscopy by Dr. Torres MIDLINE INSERTION/CONSULT 02/27/2021 PAST SURGICAL HISTORY OF bx of lumps on left lower shoulder PAST SURGICAL HISTORY OF Basal Cell Carcinoma of nose removed PAST SURGICAL HISTORY OF 2013 surgery to remove scar tissue in lung done at [place] SIGMOIDOSCOPY FLX DX W/COLLJ SPEC BR/WA IF PFRMD 05/31/1987 Sigmoidoscopy, flexible SIGMOIDOSCOPY FLX DX W/COLLJ SPEC BR/WA IF PFRMD 03/02/05 Sigmoidoscopy, flexible TONSILLECTOMY PRIMARY/SECONDARY <AGE 13 Tonsillectomy Social History Tobacco Use Smoking status: Never Smoker Smokeless tobacco: Never Used Vaping Use Vaping Use: Never used Substance Use Topics Alcohol use: No Drug use: No ALLERGIES No Known Allergies ANESTHETIC HISTORY: History of general anesthesia without complications. AIRWAY ASSESSMENT: Airway History: No abnormal airway history Airway Exam: General: Normal appearance Mallampati Score: CLASS III Dentition: Missing Mouth: Normal tongue size Temporo-Mandibular Displacement Test: Position B (lower teeth can be advanced even with upper teeth) Cervical Mobility: Some Limitation with extension s/p radiation Facial Hair: Yes, Full Davidson-Yes ANTICIPATED DIFFICULT AIRWAY: NO. Intubated successfully on 02/23 with Glidescope. Lines, Drains, Airway: Lines, Drains, and Airways None LABS: Lab Results Past 6 Months Component Value Date HB 10.2 (L) 04/29/2021 HCT 33.0 (L) 04/29/2021 PLT 243 04/29/2021 WBC 5.97 04/29/2021 NA 145 (H) 04/29/2021 K 4.1 04/29/2021 CREAT 1.24 (H) 04/29/2021 CA 9.5 04/29/2021 APTT 25.4 04/29/2021 INR 1.1 04/29/2021 HBA1C 6.0 (H) 02/19/2021 FIBCT 300 02/22/2021 Lab Results Past 6 Months Component Value Date GLUC 92 04/29/2021 K 4.1 04/29/2021 NA 145 (H) 04/29/2021 CHLOR 107 (H) 04/29/2021 CO2 27 04/29/2021 CREAT 1.24 (H) 04/29/2021 BUN 24 04/29/2021 ANION 11 04/29/2021 CA 9.5 04/29/2021 TPROT 6.3 04/29/2021 ALB 4.0 04/29/2021 TBILI 0.4 04/29/2021 ALKPHOS 163 (H) 04/29/2021 AST 19 04/29/2021 ALT 19 04/29/2021 ABO/RH(D) (no units) Date Value 04/29/2021 A POSITIVE Antibody Screen (no units) Date Value 04/29/2021 NEG Historical Ab Scr Status (no units) Date Value 04/29/2021 NEGATIVE Will the Patient Accept Blood: Yes MEDICATIONS: Current Outpatient Medications Medication Sig acetaminophen (TYLENOL) 325 mg tablet Take 2 tablets by mouth every 4 hours as needed for pain. atorvastatin (LIPITOR) 40 mg tablet Take 1 tablet by mouth daily at bedtime. furosemide (LASIX) 40 mg tablet Take 1 tablet by mouth once daily for 7 days. magnesium oxide (MAG-OX) 400 mg (241.3 mg magnesium) tablet Take 1 tablet by mouth twice daily for [address] (PROTONIX) 40 mg tablet Take 1 tablet by mouth twice daily before meals (0600/1600). iv contrast (will be provided with radiology test) CTA CHEST (NONGATED) ABD/PEL WO/W IVCON - No IV access, insert saline lock prior to the sedation, infusion, injection for imaging exam. Discontinue saline lock post exam. If Pt. has a central line or IVAD, may access for administration according to line specific nursing protocol. Once exam is complete flush line and de-access according to line specific nursing protocol in the CT contrast administration guidelines link. Current Facility-Administered Medications Medication Dose Route Frequency perflutren lipid microspheres 1.3 mL in NaCl (PF) 0.9% 10 mL injection (DEFINITY) INTRAVENOUS DIRECTED PRN sodium chloride 0.9 % (flush) 10 mL (BD POSIFLUSH) 10 mL INTRAVENOUS DIRECTED PRN Is the patient currently on any anticoagulant medications: No Additional Comments: I have reviewed the Cardiothoracic Surgical Assessment and agree with its findings. During the course of the encounter the patient was prepared for anesthetic care. This conversation included anesthetic options, possible use of invasive monitoring, the risks, benefits, alternatives, and personnel that will be present for the anesthetic encounter. The patient agreed to proceed with the planned anesthetic. Instructed to take atorvastatin with a small sip of water on the morning of surgery. ANESTHESIA CONCERNS: None BETA CHAN COMPLIANCE: Is the Patient Scheduled for a CABG: No SIGNATURE: Suzanna Hills DO PATIENT NAME: Lamont Oropeza DATE: May 04, 2021 TIME: 12:50 PM PAGER/CONTACT #: documented in this encounter [facility] 04-29-2021 Instructions David Maldonado - 04/29/2021 11:44 AM EST 1. I ordered a heart rate monitor, once you are done with your upcoming surgery and return home, wear it for 14 days and mail it back. 2. No changes to medication at this time, we will revisit after surgery. 3. Follow up in 3 months time. documented in this encounter [facility] 04-29-2021 History of Present illness Narrative Images from the original note were not included. [facility] Department of Cardiovascular Medicine SECTION OF CLINICAL CARDIOLOGY OUTPATIENT VISIT DATE April 29, 2021 OUTPATIENT VISIT TYPE CONSULTATION PRIMARY CARE PHYSICIAN: Chetan Herrera MD [address] [place] [address] REFERRING PHYSICIAN Rosetta Lu [address] [facility] [id number] CHIEF COMPLAINT: No chief complaint on file. HISTORY OF PRESENT ILLNESS: Cardiac consultation at the request of Dr. Rosetta Lu.A copy of this consultation note will be provided to the requesting physician by way of shared Medical record or letter to requesting physician via US mail. Mr. Oropeza is a 75 year old male who is seen today for cardiovascular evaluation. He has a significant medical history of aortic dissection s/p Ascending and Hybrid Aortic arch repair with a Frozen elephant trunk and stent to the LSCA (B-SAFER), AVr, CABGx3 (SEBASTIAN-LAD, SVG-seq to Ramus and OM1), LAAC on 02/21/2021, CAD, CKD stage 3, thyroid nodule, CVA, remote lymphoma. His hospital stay was lengthened by CVA and PAF. Since AVR and CABG x3, he has been doing well from a cardiac perspective. However, he had a mechanical fall and broke multiple ribs. The fractures have been causing him some discomfort. He currently has blurred vision and has trouble reading as a result of a CVA during his ascending aortic arch repair. He has upcoming endovascular repair of descending thoracic aorta with endoprosthesis scheduled for 05/05/2021. He denies chest pain, shortness of breath, orthopnea, cough, edema, palpitations, PND, lightheadedness or syncope. Patient is accompanied today by his son. PAST MEDICAL HISTORY Diagnosis Date Basal cell carcinoma of nose Hemorrhage of gastrointestinal tract, unspecified Internal hemorrhoids without mention of complication Other malignant lymphomas, unspecified site, extranodal and solid organ sites PAST SURGICAL HISTORY Procedure Laterality Date APPENDECTOMY COLONOSCOPY FLX DX W/COLLJ SPEC WHEN PFRMD 1995 Colonoscopy COLONOSCOPY FLX DX W/COLLJ SPEC WHEN PFRMD Colonoscopy by Dr. Torres MIDLINE INSERTION/CONSULT 02/27/2021 PAST SURGICAL HISTORY OF bx of lumps on left lower shoulder PAST SURGICAL HISTORY OF Basal Cell Carcinoma of nose removed PAST SURGICAL HISTORY OF 2013 surgery to remove scar tissue in lung done at [place] SIGMOIDOSCOPY FLX DX W/COLLJ SPEC BR/WA IF PFRMD 05/31/1987 Sigmoidoscopy, flexible SIGMOIDOSCOPY FLX DX W/COLLJ SPEC BR/WA IF PFRMD 03/02/05 Sigmoidoscopy, flexible TONSILLECTOMY PRIMARY/SECONDARY <AGE 13 Tonsillectomy Social History Tobacco Use Smoking status: Never Smoker Smokeless tobacco: Never Used Vaping Use Vaping Use: Never used Substance Use Topics Alcohol use: No Drug use: No FAMILY HISTORY Problem Relation Age of Onset Emphysema Father Thyroid Mother None Sister None Sister None Sister None Brother None Brother other (kidney tumor [Other]) Brother other (spine problem [Other]) Sister ALLERGIES No Known Allergies MEDICATIONS: acetaminophen (TYLENOL) 325 mg tablet Take 2 tablets by mouth every 4 hours as needed for pain. atorvastatin (LIPITOR) 40 mg tablet Take 1 tablet by mouth daily at bedtime. furosemide (LASIX) 40 mg tablet Take 1 tablet by mouth once daily for 7 days. magnesium oxide (MAG-OX) 400 mg (241.3 mg magnesium) tablet Take 1 tablet by mouth twice daily for [address] (PROTONIX) 40 mg tablet Take 1 tablet by mouth twice daily before meals (0600/1600). iv contrast (will be provided with radiology test) CTA CHEST (NONGATED) ABD/PEL WO/W IVCON - No IV access, insert saline lock prior to the sedation, infusion, injection for imaging exam. Discontinue saline lock post exam. If Pt. has a central line or IVAD, may access for administration according to line specific nursing protocol. Once exam is complete flush line and de-access according to line specific nursing protocol in the CT contrast administration guidelines link. REVIEW OF SYSTEMS: GENERAL: Negative for: Weight loss or gain, Fever or Chills, Weakness and Sleep difficulties. HEENT: Negative for: Headache, Impaired Vision, Glasses, Hearing Impairment, Ringing in Ears, Nosebleeds, Poor dental care, Bleeding Gums, Dentures NECK: Negative for: Swelling, Pain, Stiffness RESPIRATORY: Negative for: Cough, Blood in Sputum, Shortness of breath, Wheezing, Apnea GASTROINTESTINAL: Negative for: Trouble swallowing, Heartburn, Change in bowel habits, Blood in stool, Dark black stools MUSCULOSKELETAL: Negative for: Muscle or joint pain, Stiffness , Joint swelling NEUROLOGIC/PSYCHIATRIC: Negative for: Weakness, Paralysis, Numbness, Tingling, Tremor, Nervousness, Depressed mood, Memory loss SKIN: Negative for: Rashes, Itching HEMATOLOGICAL/LYMPHATIC: Negative for: Easy bruising , Easy bleeding ENDOCRINE: Negative for: Heat or cold intolerance, Excessive sweating, Frequent urination, Frequent thirst PHYSICAL EXAMINATION: BP 127/90 (BP Site: Right Arm) Pulse 85 Resp 12 Wt 96.6 kg (213 lb) SpO2 96% BMI 28.10 kg/m General: Well appearing, in no acute distress. Skin: No clubbing, no cyanosis. Eyes: Extra ocular movements intact Oropharynx: Teeth in good repair. Neck: No jugular venous distention, no carotid bruits, carotids have a normal upstroke, no palpable thyromegaly. Lungs: Clear to auscultation bilaterally, no wheezing or rhonchi. Heart: Regular rhythm, PMI not displaced, S1, S2 normal, no S3, no S4, no heaves, no rub and no murmur. Abdomen: Soft, nontender, bowel sounds normal, no palpable organomegaly, no bruits. Extremities: No peripheral edema . Grade 2/4 distal pulses bilaterally. Neuro: Oriented to person, place and time, alert, cooperative, gait coordinated. Sternotomy healing well and stable. CARDIOVASCULAR MEDICINE TESTING: ECG 04/29/2021 NORMAL SINUS RHYTHM LEFT VENTRICULAR HYPERTROPHY WITH SECONDARY REPOLARIZATION ABNORMALITY ABNORMAL ECG TTE 04/29/2021 CONCLUSIONS: - Technically difficult exam due to suboptimal positioning. - Exam indication: TAA op+AVr+CABG follow up, pre-TEVAR - The left ventricle is normal in size. There is mild concentric left ventricular hypertrophy. Left ventricular systolic function is mildly decreased. EF = 48 5% (2D 4-ch.) - The right ventricle is normal in size. Right ventricular systolic function is normal. - S/P aortic valve repair. There is mild (1+) aortic valve regurgitation. The peak gradient is 6 mmHg, the mean gradient is 4 mmHg and the dimensionless valve index is 0.65. Prior AVr gradient 8/4 mmHg. - Exam was compared with the prior echocardiographic exam performed on 03/05/2021, visually similar findings (although last study reported LVEF 55%). Carotids US 02/20/2021 IMPRESSION RIGHT SIDE Common carotid artery: Plaque visualized without evidence of hemodynamically significant stenosis. Internal carotid artery: 20-39% stenosis. Tortuous vessel from proximal to distal . Vessel appears aneurysmal at origin measuring 1.87 cm with homogenous plaque versus mural thrombus noted. Vertebral artery: Patent and antegrade flow noted. Subclavian artery: Plaque visualized without evidence of hemodynamically significant stenosis. LEFT SIDE Common carotid artery: Plaque visualized without evidence of hemodynamically significant stenosis. Internal carotid artery: 20-39% stenosis. Vertebral artery: Patent and antegrade flow noted. Cardiac Cath 02/20/2021 LMT: The LMT has mild diffuse disease. Additional Comment: The left main trifurcates into the LAD, ramus, and circumflex. LAD: The proximal LAD is narrowed 80 % - focal disease. Additional Comment: There is a severe 80% calcific lesion of the proximal LAD followed by mild diffuse disease in the mid/distal portion. There is a small caliber diagonal with mild diffuse disease. LCX: The proximal circumflex is narrowed 50 % - focal disease. Additional Comment: The circumflex is a dominant vessel. There is a moderate 50% lesion of the proximal circumflex. The lPDA has mild diffuse disease. RAMUS:The ostial Ramus is narrowed 80 % - focal disease. Additional Comment: The ramus is a large vessel with an 80% obstructive lesion in the ostium. RCA: The RCA has mild diffuse disease. Laboratory Testing 04/29/2021 08:48 Creatinine 1.24 (H) Cholesterol, Total 140 Triglyceride 112 Fasting Time 12 HDL Cholesterol 43 LDL Cholesterol 75 VLDL Cholesterol 22 TC:HDL Ratio 3.26 LDL:HDL Ratio 1.74 Non HDL Cholesterol 97 Hematocrit 33.0 (L) I have personally reviewed the Electrocardiogram, Laboratory Testing and Echocardiogram. IMPRESSION: Mr. Oropeza is a 75 year old male with a history of aortic dissection s/p ascending and hybrid aortic arch repair with a Frozen elephant trunk and a stent to the LSCA (B-SAFER), AVr, CABGx3 (SEBASTIAN-LAD, SVG-seq to Ramus and OM1), LAAC on 02/21/2021, CAD, CKD stage 3, thyroid nodule, CVA, remote history of lymphoma. PLAN AND RECOMMENDATIONS: Aortic Dissection. Plan for staged procedure with Dr. Lu next week. Follow-up scans ordered. Ascending aortic dimensions are stable on postoperative echocardiogram performed today. Secondary risk factor prevention as outlined below. Coronary artery disease. Status post CABG x3. Secondary prevention measures as outlined below. For lifelong aspirin therapy. Cardiac risk factor modification. Essential hypertension. Evidence of LVH on echocardiogram, and history of aortic dissection. Blood pressure is modestly controlled today. Will defer initiating beta-chan therapy seen as surgery is scheduled for next week. Dyslipidemia. Warrants high intensity statin. Will discuss transition from atorvastatin 40 to 80 at next visit. Paroxysmal atrial fibrillation. Postoperative atrial fibrillation in normal sinus rhythm today. Contraindication to anticoagulation with upcoming surgery next week. Continue on aspirin therapy at this time. Elevated [id number] score, should be reconsidered for long-term anticoagulant therapy if evidence of recurrence outside of the postoperative window. We will arrange for surveillance with extended dye range operator cloth. Follow-up. In approximately 3 months time. Thank you very much for involving the care of your patient. Sincerely, Jonel Cleary MD I personally interviewed, confirmed and edited the above information as obtained by others. CONTACT INFORMATION: Jonel Cleary MD, MSc, FRCPC, FACC Section of Clinical Cardiology Desk [id number] [place] [address] documented in this encounter [facility] 04-29-2021 Procedure note Associated Order(s): OUTSIDE VENDOR CARDIAC OUTPATIENT EXTENDED RHYTHM RECORDING (WITHOUT TELEMETRY) Patient Name: Lamont Oropeza : 1945 Ordering Provider: JONEL CLEARY Indication: I71.2 Thoracic aortic aneurysm, without rupture Type of Monitor: Extended Monitoring-Zio Patch Enrollment Dates: 05/14/2021-05/28/2021 Patient had a min HR of 49 bpm, max HR of 138 bpm, and avg HR of 62 bpm. Predominant underlying rhythm was Sinus Rhythm. First Degree AV Block was present. 3 Supraventricular Tachycardia runs occurred, the run with the fastest interval lasting 17.9 secs with a max rate of 138 bpm (avg 114 bpm); the run with the fastest interval was also the longest. Some episodes of Supraventricular Tachycardia may be possible Atrial Tachycardia with variable block. Isolated SVEs were rare (<1.0%), SVE Couplets were rare (<1.0%), and SVE Triplets were rare (<1.0%). Isolated VEs were rare (<1.0%, 1289), VE Couplets were rare (<1.0%, 31), and VE Triplets were rare (<1.0%, 2). Ventricular Trigeminy was present. ZioPatch monitoring rhythm strips and any patient triggered events were reviewed. I agree with findings summarized above. Ben Arellano MD documented in this encounter [facility] documented as of this encounter (statuses as of 06/25/2021) [facility] History of Past illness Narrative* Problem Noted Date Resolved Date Preop testing 04/11/2021 05/08/2021 Overview: [facility] PRE-OP CHECKLIST Informed Consent Completed: Yes STS Score: REDO:No CAD: Yes - CAD on Problem List: Yes Is intended procedure a CABG: No - is a beta chan ordered? No - reason: na H & P completed: Yes, will complete PA/LAT: done CT: Completed no fu need per Kandi Booker for thy. MRI: N/A LE US: N/A Cath: Yes - reviewed: Yes EKG: Completed Is patient on Amiodarone? No Echo:Completed EF %: 55 PI's: N/A Carotid: Completed Mapping: N/A Dental: 05/04/[address] Lu emailed PFT's: N/A UAnormal HCG:N/A ABO/ABO Confirmed:done Blood ordered: Yes TEVAR SA Swab: Yes - results: Pending Last Dose of Anticoagulation: pt states he has not take vit in a while Anticoagulant & Antiplatelet Medications Patient Encounter Information Not Found Op Note: Yes Pacer Check: NA Implants: no Consults: na DM: No Cardiac Surgical prep: admit after spinal drain 05/04/2021 SIGNATURE: Reyna Gaitan RN DATE of SERVICE: 04/11/2021 TIME of SERVICE: 11:06 AM CHECKED BY: Gentry Kirby APRN.ACETYLENE TORCH BURNER Pleural effusion 03/02/2021 03/14/2021 Overview: History: Post op problem Assessment: L pleural effusion seen on CXR; Chest US 03/02 with insufficient amount to norris. CXR 03/08 remains stable. Increased O2 needs during PM 03/09. This AM CXR relatively unchanged Plan: Continue diuresis, mobilize, wean O2 Left arm swelling 03/02/2021 03/14/2021 Overview: History: Post op problem Assessment: LUE edematous on exam, non painful. 03/08- swelling continues to improve Plan: DVT US: (+) for basilic vein thrombus. Per ER continue to monitor for now, swelling improving. Hypernatremia 02/26/2021 03/14/2021 Overview: History: Goal per neuro for sodium is 140-145 (avoid hyponatremia) Assessment: Na stabilized, pt diet advanced to dental soft 03/07 Sodium Date Value Ref Range Status 03/10/2021 141 136 - 144 mmol/L Final 03/09/2021 144 136 - 144 mmol/L Final 03/08/2021 145 (H) 136 - 144 mmol/L Final Plan: DC D5W 03/07, continue to monitor Na. Per neuro keep Na 140-145. Status post ascending aortic aneurysm repair 09/202003/07/2021 Overview: Ascending and Hybrid Aortic arch repair with a Frozen elephant trunk and stent to the LSCA (B-SAFER), AVr, CABGx3 (SEBASTIAN-LAD, SVG-seq to Ramus and OM1), LAAC. S/P aortic valve repair 02/22/2021 03/07/20 Overview: Ascending and Hybrid Aortic arch repair with a Frozen elephant trunk and stent to the LSCA (B-SAFER), AVr, CABGx3 (SEBASTIAN-LAD, SVG-seq to Ramus and OM1), LAAC. S/P CABG x 3 02/22/2021 03/07/2021 Overview: Ascending and Hybrid Aortic arch repair with a Frozen elephant trunk and stent to the LSCA (B-SAFER), AVr, CABGx3 (SEBASTIAN-LAD, SVG-seq to Ramus and OM1), LAAC. Obesity, Class I, BMI 30-34.9 02/22/2021 Overview: History: Pre op problem Assessment: Body mass index is 27.73 kg/m . Plan: Encourage lifestyle changes' Preop testing 02/21/2021 04/11/2021 Overview: [facility] PRE-OP CHECKLIST Dr Medley Aneurysm Repair Informed Consent Completed: No STS Score: unsupp REDO:No CAD: Yes - CAD on Problem List: Yes Is intended procedure a CABG: to be determine - is a beta chan ordered? Yes H & P completed: Yes PA/LAT: Completed CT: Completed MRI: N/A LE US: N/A Cath: Yes - reviewed: Yes [facility] EKG: Completed Is patient on Amiodarone? No Echo:pending EF %: PI's: N/A Carotid: Pending Mapping: N/A Dental: Not Cleared will have to be done postop PFT's: N/A Recent Labs 02/20/21 0048 WBC 5.34 HB 8.2* HCT 26.3* PLT 144* INR 1.0 CREAT 2.18* UA: Abnormal HCG:N/A ABO/ABO Confirmed: Yes ABO/RH(D) Date Value Ref Range Status 02/19/2021 A POSITIVE Final Blood ordered: Yes Willing to accept blood: Yes SA Swab: Yes - results: Positive SA/negative MRSA 02/19/2021 Last Dose of Anticoagulation: none Op Note: N/A Pacer Check: NA Implants: no DOMINANT HAND: right-handed Consults: Vasc Surgery DM: No Hemoglobin A1C (%) Date Value 02/19/2021 6.0 Cardiac Surgical prep: Yes SIGNATURE: Lydia Patel APRN.CNP DATE of SERVICE: 02/20/2021 TIME of SERVICE: 2:57 PM CHECKED BY: RE Need for assessment by dentistry for poor dentit ion 02/21/2021 03/08/2021 Overview: Pt is CICU-- urgent surgery--not able to see dentistry Will need to be evaluate by dentistry postop On mechanically assisted ventilation 02/21/2021 02/25/2021 Overview: History: Postop Assessment: Arrived intubated on mechanical ventilation. Plan: WTE Postoperative hypotension 02/21/20212020 Overview: History: Postop Assessment: arrived on levophed infusion. 02/23/2021 Titrate Levophed infusion for MAPS 70-80. Transfuse albumin. Cardiac insufficiency following cardiac surgery 02/21/2021 02/25/2021 Overview: History: Normal biventricular function pre-op Assessment: arrived on Epinephrine infusion. Plan: Maintain inotropic support for now. Postoperative pain 02/21/2021 05/08/2021 Overview: History: 05/05/2021: TEVAR extension Assessment: Postsurgical pain Plan: Fentanyl [employer], scheduled Tylenol, and PRN oxycodone Coagulopathy 02/21/2021 02/22/2021 Overview: History: coagulopathy in OR Assessment: received 2 PLT intra-op Plan: Repeat coags and replete factors as needed. documented as of this encounter (statuses as of 07/07/2021) [facility] History of Past illness Narrative* Problem Noted Date Resolved Date Preop testing 04/11/2021 05/08/2021 Overview: [facility] PRE-OP CHECKLIST Informed Consent Completed: Yes STS Score: REDO:No CAD: Yes - CAD on Problem List: Yes Is intended procedure a CABG: No - is a beta chan ordered? No - reason: na H & P completed: Yes, will complete PA/LAT: done CT: Completed no fu need per Kandi Booker for thy. MRI: N/A LE US: N/A Cath: Yes - reviewed: Yes EKG: Completed Is patient on Amiodarone? No Echo:Completed EF %: 55 PI's: N/A Carotid: Completed Mapping: N/A Dental: 05/04/[address] Lu emailed PFT's: N/A UAnormal HCG:N/A ABO/ABO Confirmed:done Blood ordered: Yes TEVAR SA Swab: Yes - results: Pending Last Dose of Anticoagulation: pt states he has not take vit in a while Anticoagulant & Antiplatelet Medications Patient Encounter Information Not Found Op Note: Yes Pacer Check: NA Implants: no Consults: na DM: No Cardiac Surgical prep: admit after spinal drain 05/04/2021 SIGNATURE: Reyna Gaitan RN DATE of SERVICE: 04/11/2021 TIME of SERVICE: 11:06 AM CHECKED BY: Gentry Kirby APRN.ACETYLENE TORCH BURNER Pleural effusion 03/02/2021 03/14/2021 Overview: History: Post op problem Assessment: L pleural effusion seen on CXR; Chest US 03/02 with insufficient amount to norris. CXR 03/08 remains stable. Increased O2 needs during PM 03/09. This AM CXR relatively unchanged Plan: Continue diuresis, mobilize, wean O2 Left arm swelling 03/02/2021 03/14/2021 Overview: History: Post op problem Assessment: LUE edematous on exam, non painful. 03/08- swelling continues to improve Plan: DVT US: (+) for basilic vein thrombus. Per ER continue to monitor for now, swelling improving. Hypernatremia 02/26/2021 03/14/2021 Overview: History: Goal per neuro for sodium is 140-145 (avoid hyponatremia) Assessment: Na stabilized, pt diet advanced to dental soft 03/07 Sodium Date Value Ref Range Status 03/10/2021 141 136 - 144 mmol/L Final 03/09/2021 144 136 - 144 mmol/L Final 03/08/2021 145 (H) 136 - 144 mmol/L Final Plan: DC D5W 03/07, continue to monitor Na. Per neuro keep Na 140-145. Status post ascending aortic aneurysm repair 09/202003/07/2021 Overview: Ascending and Hybrid Aortic arch repair with a Frozen elephant trunk and stent to the LSCA (B-SAFER), AVr, CABGx3 (SEBASTIAN-LAD, SVG-seq to Ramus and OM1), LAAC. S/P aortic valve repair 02/22/2021 03/07/20 21 Overview: Ascending and Hybrid Aortic arch repair with a Frozen elephant trunk and stent to the LSCA (B-SAFER), AVr, CABGx3 (SEBASTIAN-LAD, SVG-seq to Ramus and OM1), LAAC. S/P CABG x 3 02/22/2021 03/07/2021 Overview: Ascending and Hybrid Aortic arch repair with a Frozen elephant trunk and stent to the LSCA (B-SAFER), AVr, CABGx3 (SEBASTIAN-LAD, SVG-seq to Ramus and OM1), LAAC. Obesity, Class I, BMI 30-34.9 02/22/2021 Overview: History: Pre op problem Assessment: Body mass index is 27.73 kg/m . Plan: Encourage lifestyle changes' Preop testing 02/21/2021 04/11/2021 Overview: [facility] PRE-OP CHECKLIST Dr Medley Aneurysm Repair Informed Consent Completed: No STS Score: unsupp REDO:No CAD: Yes - CAD on Problem List: Yes Is intended procedure a CABG: to be determine - is a beta chan ordered? Yes H & P completed: Yes PA/LAT: Completed CT: Completed MRI: N/A LE US: N/A Cath: Yes - reviewed: Yes [facility] EKG: Completed Is patient on Amiodarone? No Echo:pending EF %: PI's: N/A Carotid: Pending Mapping: N/A Dental: Not Cleared will have to be done postop PFT's: N/A Recent Labs 02/20/21 0048 WBC 5.34 HB 8.2* HCT 26.3* PLT 144* INR 1.0 CREAT 2.18* UA: Abnormal HCG:N/A ABO/ABO Confirmed: Yes ABO/RH(D) Date Value Ref Range Status 02/19/2021 A POSITIVE Final Blood ordered: Yes Willing to accept blood: Yes SA Swab: Yes - results: Positive SA/negative MRSA 02/19/2021 Last Dose of Anticoagulation: none Op Note: N/A Pacer Check: NA Implants: no DOMINANT HAND: right-handed Consults: Vasc Surgery DM: No Hemoglobin A1C (%) Date Value 02/19/2021 6.0 Cardiac Surgical prep: Yes SIGNATURE: Lydia Patel APRN.CNP DATE of SERVICE: 02/20/2021 TIME of SERVICE: 2:57 PM CHECKED BY: OFE Need for assessment by dentistry for poor dentit ion 02/21/2021 03/08/2021 Overview: Pt is CICU-- urgent surgery--not able to see dentistry Will need to be evaluate by dentistry postop On mechanically assisted ventilation 02/21/2021 02/25/2021 Overview: History: Postop Assessment: Arrived intubated on mechanical ventilation. Plan: WTE Postoperative hypotension 02/21/20212020 Overview: History: Postop Assessment: arrived on levophed infusion. 02/23/2021 Titrate Levophed infusion for MAPS 70-80. Transfuse albumin. Cardiac insufficiency following cardiac surgery 02/21/2021 02/25/2021 Overview: History: Normal biventricular function pre-op Assessment: arrived on Epinephrine infusion. Plan: Maintain inotropic support for now. Postoperative pain 02/21/2021 05/08/2021 Overview: History: 05/05/2021: TEVAR extension Assessment: Postsurgical pain Plan: Fentanyl [employer], scheduled Tylenol, and PRN oxycodone Coagulopathy 02/21/2021 02/22/2021 Overview: History: coagulopathy in OR Assessment: received 2 PLT intra-op Plan: Repeat coags and replete factors as needed. documented as of this encounter (statuses as of 07/08/2021) [facility] History of Past illness Narrative* Problem Noted Date Resolved Date Preop testing 04/11/2021 05/08/2021 Overview: [facility] PRE-OP CHECKLIST Informed Consent Completed: Yes STS Score: REDO:No CAD: Yes - CAD on Problem List: Yes Is intended procedure a CABG: No - is a beta chan ordered? No - reason: na H & P completed: Yes, will complete PA/LAT: done CT: Completed no fu need per Kandi Booker for thy. MRI: N/A LE US: N/A Cath: Yes - reviewed: Yes EKG: Completed Is patient on Amiodarone? No Echo:Completed EF %: 55 PI's: N/A Carotid: Completed Mapping: N/A Dental: 05/04/[address] [facility] [address] Lu emailed PFT's: N/A UAnormal HCG:N/A ABO/ABO Confirmed:done Blood ordered: Yes TEVAR SA Swab: Yes - results: Pending Last Dose of Anticoagulation: pt states he has not take vit in a while Anticoagulant & Antiplatelet Medications Patient Encounter Information Not Found Op Note: Yes Pacer Check: NA Implants: no Consults: na DM: No Cardiac Surgical prep: admit after spinal drain 05/04/2021 SIGNATURE: Reyna Gaitan RN DATE of SERVICE: 04/11/2021 TIME of SERVICE: 11:06 AM CHECKED BY: Gentry Kirby APRN.ACETYLENE TORCH BURNER Pleural effusion 03/02/2021 03/14/2021 Overview: History: Post op problem Assessment: L pleural effusion seen on CXR; Chest US 03/02 with insufficient amount to norris. CXR 03/08 remains stable. Increased O2 needs during PM 03/09. This AM CXR relatively unchanged Plan: Continue diuresis, mobilize, wean O2 Left arm swelling 03/02/2021 03/14/2021 Overview: History: Post op problem Assessment: LUE edematous on exam, non painful. 03/08- swelling continues to improve Plan: DVT US: (+) for basilic vein thrombus. Per ER continue to monitor for now, swelling improving. Hypernatremia 02/26/2021 03/14/2021 Overview: History: Goal per neuro for sodium is 140-145 (avoid hyponatremia) Assessment: Na stabilized, pt diet advanced to dental soft 03/07 Sodium Date Value Ref Range Status 03/10/2021 141 136 - 144 mmol/L Final 03/09/2021 144 136 - 144 mmol/L Final 03/08/2021 145 (H) 136 - 144 mmol/L Final Plan: DC D5W 03/07, continue to monitor Na. Per neuro keep Na 140-145. Status post ascending aortic aneurysm repair 09/202003/07/2021 Overview: Ascending and Hybrid Aortic arch repair with a Frozen elephant trunk and stent to the LSCA (B-SAFER), AVr, CABGx3 (SEBASTIAN-LAD, SVG-seq to Ramus and OM1), LAAC. S/P aortic valve repair 02/22/2021 03/07/20 Overview: Ascending and Hybrid Aortic arch repair with a Frozen elephant trunk and stent to the LSCA (B-SAFER), AVr, CABGx3 (SEBASTIAN-LAD, SVG-seq to Ramus and OM1), LAAC. S/P CABG x 3 02/22/2021 03/07/2021 Overview: Ascending and Hybrid Aortic arch repair with a Frozen elephant trunk and stent to the LSCA (B-SAFER), AVr, CABGx3 (SEBASTIAN-LAD, SVG-seq to Ramus and OM1), LAAC. Obesity, Class I, BMI 30-34.9 02/22/2021 Overview: History: Pre op problem Assessment: Body mass index is 27.73 kg/m . Plan: Encourage lifestyle changes' Preop testing 02/21/2021 04/11/2021 Overview[facility] PRE[facility]OP CHECKLIST Dr Medley Aneurysm Repair Informed Consent Completed: No STS Score: unsupp REDO:No CAD: Yes - CAD on Problem List: Yes Is intended procedure a CABG: to be determine - is a beta chan ordered? Yes H & P completed: Yes PA/LAT: Completed CT: Completed MRI: N/A LE US: N/A Cath: Yes - reviewed: Yes [facility] EKG: Completed Is patient on Amiodarone? No Echo:pending EF %: PI's: N/A Carotid: Pending Mapping: N/A Dental: Not Cleared will have to be done postop PFT's: N/A Recent Labs 02/20/21 0048 WBC 5.34 HB 8.2* HCT 26.3* PLT 144* INR 1.0 CREAT 2.18* UA: Abnormal HCG:N/A ABO/ABO Confirmed: Yes ABO/RH(D) Date Value Ref Range Status 02/19/2021 A POSITIVE Final Blood ordered: Yes Willing to accept blood: Yes SA Swab: Yes - results: Positive SA/negative MRSA 02/19/2021 Last Dose of Anticoagulation: none Op Note: N/A Pacer Check: NA Implants: no DOMINANT HAND: right-handed Consults: Vasc Surgery DM: No Hemoglobin A1C (%) Date Value 02/19/2021 6.0 Cardiac Surgical prep: Yes SIGNATURE: Lydia Patel APRN.CNP DATE of SERVICE: 02/20/2021 TIME of SERVICE: 2:57 PM CHECKED BY: RE Need for assessment by dentistry for poor dentit ion 02/21/2021 03/08/2021 Overview: Pt is CICU-- urgent surgery--not able to see dentistry Will need to be evaluate by dentistry postop On mechanically assisted ventilation 02/21/2021 02/25/2021 Overview: History: Postop Assessment: Arrived intubated on mechanical ventilation. Plan: WTE Postoperative hypotension 02/21/20212020 Overview: History: Postop Assessment: arrived on levophed infusion. 02/23/2021 Titrate Levophed infusion for MAPS 70-80. Transfuse albumin. Cardiac insufficiency following cardiac surgery 02/21/2021 02/25/2021 Overview: History: Normal biventricular function pre-op Assessment: arrived on Epinephrine infusion. Plan: Maintain inotropic support for now. Postoperative pain 02/21/2021 05/08/2021 Overview: History: 05/05/2021: TEVAR extension Assessment: Postsurgical pain Plan: Fentanyl [employer], scheduled Tylenol, and PRN oxycodone Coagulopathy 02/21/2021 02/22/2021 Overview: History: coagulopathy in OR Assessment: received 2 PLT intra-op Plan: Repeat coags and replete factors as needed. documented as of this encounter (statuses as of 07/18/2021) [facility]01-24-2022 History of Past illness Narrative* Problem Noted Date Resolved Date Preop testing 04/11/2021 05/08/2021 Overview: [facility] PRE[facility] Informed Consent Completed: Yes STS Score: REDO:No CAD: Yes - CAD on Problem List: Yes Is intended procedure a CABG: No - is a beta chan ordered? No - reason: na H & P completed: Yes, will complete PA/LAT: done CT: Completed no fu need per Kandi Booker for thy. MRI: N/A BERONICA US: N/A Cath: Yes - reviewed: Yes EKG: Completed Is patient on Amiodarone? No Echo:Completed EF %: 55 PI's: N/A Carotid: Completed Mapping: N/A Dental: 05/04/[address] [facility] [address] Lu emailed PFT's: N/A UAnormal HCG:N/A ABO/ABO Confirmed:done Blood ordered: Yes TEVAR SA Swab: Yes - results: Pending Last Dose of Anticoagulation: pt states he has not take vit in a while Anticoagulant & Antiplatelet Medications Patient Encounter Information Not Found Op Note: Yes Pacer Check: NA Implants: no Consults: na DM: No Cardiac Surgical prep: admit after spinal drain 05/04/2021 SIGNATURE: Reyna Gaitan RN DATE of SERVICE: 04/11/2021 TIME of SERVICE: 11:06 AM CHECKED BY: Gentry Mirta, MAINTENANCE MECHANIC 2ND SHIFT.ACETYLENE TORCH BURNER Pleural effusion 03/02/2021 03/14/2021 Overview: History: Post op problem Assessment: L pleural effusion seen on CXR; Chest US 03/02 with insufficient amount to norris. CXR 03/08 remains stable. Increased O2 needs during PM 03/09. This AM CXR relatively unchanged Plan: Continue diuresis, mobilize, wean O2 Left arm swelling 03/02/2021 03/14/2021 Overview: History: Post op problem Assessment: LUE edematous on exam, non painful. 03/08- swelling continues to improve Plan: DVT US: (+) for basilic vein thrombus. Per ER continue to monitor for now, swelling improving. Hypernatremia 02/26/2021 03/14/2021 Overview: History: Goal per neuro for sodium is 140-145 (avoid hyponatremia) Assessment: Na stabilized, pt diet advanced to dental soft 03/07 Sodium Date Value Ref Range Status 03/10/2021 141 136 - 144 mmol/L Final 03/09/2021 144 136 - 144 mmol/L Final 03/08/2021 145 (H) 136 - 144 mmol/L Final Plan: DC D5W 03/07, continue to monitor Na. Per neuro keep Na 140-145. Status post ascending aortic aneurysm repair 09/202003/07/2021 Overview: Ascending and Hybrid Aortic arch repair with a Frozen elephant trunk and stent to the LSCA (B-SAFER), AVr, CABGx3 (SEBASTIAN-LAD, SVG-seq to Ramus and OM1), LAAC. S/P aortic valve repair 02/22/2021 03/07/20 Overview: Ascending and Hybrid Aortic arch repair with a Frozen elephant trunk and stent to the LSCA (B-SAFER), AVr, CABGx3 (SEBASTIAN-LAD, SVG-seq to Ramus and OM1), LAAC. S/P CABG x 3 02/22/2021 03/07/2021 Overview: Ascending and Hybrid Aortic arch repair with a Frozen elephant trunk and stent to the LSCA (B-SAFER), AVr, CABGx3 (SEBASTIAN-LAD, SVG-seq to Ramus and OM1), LAAC. Obesity, Class I, BMI 30-34.9 02/22/2021 Overview: History: Pre op problem Assessment: Body mass index is 27.73 kg/m . Plan: Encourage lifestyle changes' Preop testing 02/21/2021 04/11/2021 Overview: [facility] PRE-OP CHECKLIST Dr Medley Aneurysm Repair Informed Consent Completed: No STS Score: unsupp REDO:No CAD: Yes - CAD on Problem List: Yes Is intended procedure a CABG: to be determine - is a beta chan ordered? Yes H & P completed: Yes PA/LAT: Completed CT: Completed MRI: N/A LE US: N/A Cath: Yes - reviewed: Yes [facility] EKG: Completed Is patient on Amiodarone? No Echo:pending EF %: PI's: N/A Carotid: Pending Mapping: N/A Dental: Not Cleared will have to be done postop PFT's: N/A Recent Labs 02/20/21 0048 WBC 5.34 HB 8.2* HCT 26.3* PLT 144* INR 1.0 CREAT 2.18* UA: Abnormal HCG:N/A ABO/ABO Confirmed: Yes ABO/RH(D) Date Value Ref Range Status 02/19/2021 A POSITIVE Final Blood ordered: Yes Willing to accept blood: Yes SA Swab: Yes - results: Positive SA/negative MRSA 02/19/2021 Last Dose of Anticoagulation: none Op Note: N/A Pacer Check: NA Implants: no DOMINANT HAND: right-handed Consults: Vasc Surgery DM: No Hemoglobin A1C (%) Date Value 02/19/2021 6.0 Cardiac Surgical prep: Yes SIGNATURE: Lydia Patel APRN.CNP DATE of SERVICE: 02/20/2021 TIME of SERVICE: 2:57 PM CHECKED BY: RE Need for assessment by dentistry for poor dentit ion 02/21/2021 03/08/2021 Overview: Pt is CICU-- urgent surgery--not able to see dentistry Will need to be evaluate by dentistry postop On mechanically assisted ventilation 02/21/2021 02/25/2021 Overview: History: Postop Assessment: Arrived intubated on mechanical ventilation. Plan: WTE Postoperative hypotension 02/21/20212020 Overview: History: Postop Assessment: arrived on levophed infusion. 02/23/2021 Titrate Levophed infusion for MAPS 70-80. Transfuse albumin. Cardiac insufficiency following cardiac surgery 02/21/2021 02/25/2021 Overview: History: Normal biventricular function pre-op Assessment: arrived on Epinephrine infusion. Plan: Maintain inotropic support for now. Postoperative pain 02/21/2021 05/08/2021 Overview: History: 05/05/2021: TEVAR extension Assessment: Postsurgical pain Plan: Fentanyl [employer], scheduled Tylenol, and PRN oxycodone Coagulopathy 02/21/2021 02/22/2021 Overview: History: coagulopathy in OR Assessment: received 2 PLT intra-op Plan: Repeat coags and replete factors as needed. documented as of this encounter (statuses as of 08/31/2021) [facility]01-24-2022 History of Past illness Narrative* Problem Noted Date Resolved Date Preop testing 04/11/2021 05/08/2021 Overview: [facility] PRE-OP CHECKLIST Informed Consent Completed: Yes STS Score: REDO:No CAD: Yes - CAD on Problem List: Yes Is intended procedure a CABG: No - is a beta chan ordered? No - reason: na H & P completed: Yes, will complete PA/LAT: done CT: Completed no fu need per Kandi Booker for thy. MRI: N/A LE US: N/A Cath: Yes - reviewed: Yes EKG: Completed Is patient on Amiodarone? No Echo:Completed EF %: 55 PI's: N/A Carotid: Completed Mapping: N/A Dental: 05/04/[address] [facility] [address] Lu emailed PFT's: N/A UAnormal HCG:N/A ABO/ABO Confirmed:done Blood ordered: Yes TEVAR SA Swab: Yes - results: Pending Last Dose of Anticoagulation: pt states he has not take vit in a while Anticoagulant & Antiplatelet Medications Patient Encounter Information Not Found Op Note: Yes Pacer Check: NA Implants: no Consults: na DM: No Cardiac Surgical prep: admit after spinal drain 05/04/2021 SIGNATURE: Reyna Gaitan RN DATE of SERVICE: 04/11/2021 TIME of SERVICE: 11:06 AM CHECKED BY: Gentry Kirby APRN.ACETYLENE TORCH BURNER Pleural effusion 03/02/2021 03/14/2021 Overview: History: Post op problem Assessment: L pleural effusion seen on CXR; Chest US 03/02 with insufficient amount to norris. CXR 03/08 remains stable. Increased O2 needs during PM 03/09. This AM CXR relatively unchanged Plan: Continue diuresis, mobilize, wean O2 Left arm swelling 03/02/2021 03/14/2021 Overview: History: Post op problem Assessment: LUE edematous on exam, non painful. 03/08- swelling continues to improve Plan: DVT US: (+) for basilic vein thrombus. Per ER continue to monitor for now, swelling improving. Hypernatremia 02/26/2021 03/14/2021 Overview: History: Goal per neuro for sodium is 140-145 (avoid hyponatremia) Assessment: Na stabilized, pt diet advanced to dental soft 03/07 Sodium Date Value Ref Range Status 03/10/2021 141 136 - 144 mmol/L Final 03/09/2021 144 136 - 144 mmol/L Final 03/08/2021 145 (H) 136 - 144 mmol/L Final Plan: DC D5W 03/07, continue to monitor Na. Per neuro keep Na 140-145. Status post ascending aortic aneurysm repair 09/202003/07/2021 Overview: Ascending and Hybrid Aortic arch repair with a Frozen elephant trunk and stent to the LSCA (B-SAFER), AVr, CABGx3 (SEBASTIAN-LAD, SVG-seq to Ramus and OM1), LAAC. S/P aortic valve repair 02/22/2021 03/07/20 Overview: Ascending and Hybrid Aortic arch repair with a Frozen elephant trunk and stent to the LSCA (B-SAFER), AVr, CABGx3 (SEBASTIAN-LAD, SVG-seq to Ramus and OM1), LAAC. S/P CABG x 3 02/22/2021 03/07/2021 Overview: Ascending and Hybrid Aortic arch repair with a Frozen elephant trunk and stent to the LSCA (B-SAFER), AVr, CABGx3 (SEBASTIAN-LAD, SVG-seq to Ramus and OM1), LAAC. Obesity, Class I, BMI 30-34.9 02/22/2021 Overview: History: Pre op problem Assessment: Body mass index is 27.73 kg/m . Plan: Encourage lifestyle changes' Preop testing 02/21/2021 04/11/2021 Overview: [facility] PRE-OP CHECKLIST Dr Medley Aneurysm Repair Informed Consent Completed: No STS Score: unsupp REDO:No CAD: Yes - CAD on Problem List: Yes Is intended procedure a CABG: to be determine - is a beta chan ordered? Yes H & P completed: Yes PA/LAT: Completed CT: Completed MRI: N/A LE US: N/A Cath: Yes - reviewed: Yes [facility] EKG: Completed Is patient on Amiodarone? No Echo:pending EF %: PI's: N/A Carotid: Pending Mapping: N/A Dental: Not Cleared will have to be done postop PFT's: N/A Recent Labs 02/20/21 0048 WBC 5.34 HB 8.2* HCT 26.3* PLT 144* INR 1.0 CREAT 2.18* UA: Abnormal HCG:N/A ABO/ABO Confirmed: Yes ABO/RH(D) Date Value Ref Range Status 02/19/2021 A POSITIVE Final Blood ordered: Yes Willing to accept blood: Yes SA Swab: Yes - results: Positive SA/negative MRSA 02/19/2021 Last Dose of Anticoagulation: none Op Note: N/A Pacer Check: NA Implants: no DOMINANT HAND: right-handed Consults: Vasc Surgery DM: No Hemoglobin A1C (%) Date Value 02/19/2021 6.0 Cardiac Surgical prep: Yes SIGNATURE: Lydia Patel APRN.CNP DATE of SERVICE: 02/20/2021 TIME of SERVICE: 2:57 PM CHECKED BY: RE Need for assessment by dentistry for poor dentit ion 02/21/2021 03/08/2021 Overview: Pt is CICU-- urgent surgery--not able to see dentistry Will need to be evaluate by dentistry postop On mechanically assisted ventilation 02/21/2021 02/25/2021 Overview: History: Postop Assessment: Arrived intubated on mechanical ventilation. Plan: WTE Postoperative hypotension 02/21/20212020 Overview: History: Postop Assessment: arrived on levophed infusion. 02/23/2021 Titrate Levophed infusion for MAPS 70-80. Transfuse albumin. Cardiac insufficiency following cardiac surgery 02/21/2021 02/25/2021 Overview: History: Normal biventricular function pre-op Assessment: arrived on Epinephrine infusion. Plan: Maintain inotropic support for now. Postoperative pain 02/21/2021 05/08/2021 Overview: History: 05/05/2021: TEVAR extension Assessment: Postsurgical pain Plan: Fentanyl [employer], scheduled Tylenol, and PRN oxycodone Coagulopathy 02/21/2021 02/22/2021 Overview: History: coagulopathy in OR Assessment: received 2 PLT intra-op Plan: Repeat coags and replete factors as needed. documented as of this encounter (statuses as of 08/31/2021) [facility]01-24-2022 History of Past illness Narrative* Problem Noted Date Resolved Date Preop testing 04/11/2021 05/08/2021 Overview: [facility] PRE-OP CHECKLIST Informed Consent Completed: Yes STS Score: REDO:No CAD: Yes - CAD on Problem List: Yes Is intended procedure a CABG: No - is a beta chan ordered? No - reason: na H & P completed: Yes, will complete PA/LAT: done CT: Completed no fu need per Kandi Booker for thy. MRI: N/A LE US: N/A Cath: Yes - reviewed: Yes EKG: Completed Is patient on Amiodarone? No Echo:Completed EF %: 55 PI's: N/A Carotid: Completed Mapping: N/A Dental: 05/04/[address] [facility] [address] Lu emailed PFT's: N/A UAnormal HCG:N/A ABO/ABO Confirmed:done Blood ordered: Yes TEVAR SA Swab: Yes - results: Pending Last Dose of Anticoagulation: pt states he has not take vit in a while Anticoagulant & Antiplatelet Medications Patient Encounter Information Not Found Op Note: Yes Pacer Check: NA Implants: no Consults: na DM: No Cardiac Surgical prep: admit after spinal drain 05/04/2021 SIGNATURE: Reyna Gaitan RN DATE of SERVICE: 04/11/2021 TIME of SERVICE: 11:06 AM CHECKED BY: Gentry Kirby APRN.ACETYLENE TORCH BURNER Pleural effusion 03/02/2021 03/14/2021 Overview: History: Post op problem Assessment: L pleural effusion seen on CXR; Chest US 03/02 with insufficient amount to norris. CXR 03/08 remains stable. Increased O2 needs during PM 03/09. This AM CXR relatively unchanged Plan: Continue diuresis, mobilize, wean O2 Left arm swelling 03/02/2021 03/14/2021 Overview: History: Post op problem Assessment: LUE edematous on exam, non painful. 03/08- swelling continues to improve Plan: DVT US: (+) for basilic vein thrombus. Per ER continue to monitor for now, swelling improving. Hypernatremia 02/26/2021 03/14/2021 Overview: History: Goal per neuro for sodium is 140-145 (avoid hyponatremia) Assessment: Na stabilized, pt diet advanced to dental soft 03/07 Sodium Date Value Ref Range Status 03/10/2021 141 136 - 144 mmol/L Final 03/09/2021 144 136 - 144 mmol/L Final 03/08/2021 145 (H) 136 - 144 mmol/L Final Plan: DC D5W 03/07, continue to monitor Na. Per neuro keep Na 140-145. Status post ascending aortic aneurysm repair 09/202003/07/2021 Overview: Ascending and Hybrid Aortic arch repair with a Frozen elephant trunk and stent to the LSCA (B-SAFER), AVr, CABGx3 (SEBASTIAN-LAD, SVG-seq to Ramus and OM1), LAAC. S/P aortic valve repair 02/22/2021 03/07/20 21 Overview: Ascending and Hybrid Aortic arch repair with a Frozen elephant trunk and stent to the LSCA (B-SAFER), AVr, CABGx3 (SEBASTIAN-LAD, SVG-seq to Ramus and OM1), LAAC. S/P CABG x 3 02/22/2021 03/07/2021 Overview: Ascending and Hybrid Aortic arch repair with a Frozen elephant trunk and stent to the LSCA (B-SAFER), AVr, CABGx3 (SEBASTIAN-LAD, SVG-seq to Ramus and OM1), LAAC. Obesity, Class I, BMI 30-34.9 02/22/2021 Overview: History: Pre op problem Assessment: Body mass index is 27.73 kg/m . Plan: Encourage lifestyle changes' Preop testing 02/21/2021 04/11/2021 Overview: [facility] PRE-OP CHECKLIST Dr Medley Aneurysm Repair Informed Consent Completed: No STS Score: unsupp REDO:No CAD: Yes - CAD on Problem List: Yes Is intended procedure a CABG: to be determine - is a beta chan ordered? Yes H & P completed: Yes PA/LAT: Completed CT: Completed MRI: N/A LE US: N/A Cath: Yes - reviewed: Yes [facility] EKG: Completed Is patient on Amiodarone? No Echo:pending EF %: PI's: N/A Carotid: Pending Mapping: N/A Dental: Not Cleared will have to be done postop PFT's: N/A Recent Labs 02/20/21 0048 WBC 5.34 HB 8.2* HCT 26.3* PLT 144* INR 1.0 CREAT 2.18* UA: Abnormal HCG:N/A ABO/ABO Confirmed: Yes ABO/RH(D) Date Value Ref Range Status 02/19/2021 A POSITIVE Final Blood ordered: Yes Willing to accept blood: Yes SA Swab: Yes - results: Positive SA/negative MRSA 02/19/2021 Last Dose of Anticoagulation: none Op Note: N/A Pacer Check: NA Implants: no DOMINANT HAND: right-handed Consults: Vasc Surgery DM: No Hemoglobin A1C (%) Date Value 02/19/2021 6.0 Cardiac Surgical prep: Yes SIGNATURE: Lydia Patel APRN.CNP DATE of SERVICE: 02/20/2021 TIME of SERVICE: 2:57 PM CHECKED BY: RE Need for assessment by dentistry for poor dentit ion 02/21/2021 03/08/2021 Overview: Pt is CICU-- urgent surgery--not able to see dentistry Will need to be evaluate by dentistry postop On mechanically assisted ventilation 02/21/2021 02/25/2021 Overview: History: Postop Assessment: Arrived intubated on mechanical ventilation. Plan: WTE Postoperative hypotension 02/21/20212020 Overview: History: Postop Assessment: arrived on levophed infusion. 02/23/2021 Titrate Levophed infusion for MAPS 70-80. Transfuse albumin. Cardiac insufficiency following cardiac surgery 02/21/2021 02/25/2021 Overview: History: Normal biventricular function pre-op Assessment: arrived on Epinephrine infusion. Plan: Maintain inotropic support for now. Postoperative pain 02/21/2021 05/08/2021 Overview: History: 05/05/2021: TEVAR extension Assessment: Postsurgical pain Plan: Fentanyl [employer], scheduled Tylenol, and PRN oxycodone Coagulopathy 02/21/2021 02/22/2021 Overview: History: coagulopathy in OR Assessment: received 2 PLT intra-op Plan: Repeat coags and replete factors as needed. documented as of this encounter (statuses as of 09/16/2021) [facility]01-24-2022 History of Past illness Narrative* Problem Noted Date Resolved Date Preop testing 04/11/2021 05/08/2021 Overview: [facility] PRE-OP CHECKLIST Informed Consent Completed: Yes STS Score: REDO:No CAD: Yes - CAD on Problem List: Yes Is intended procedure a CABG: No - is a beta chan ordered? No - reason: na H & P completed: Yes, will complete PA/LAT: done CT: Completed no fu need per Kandi Booker for thy. MRI: N/A LE US: N/A Cath: Yes - reviewed: Yes EKG: Completed Is patient on Amiodarone? No Echo:Completed EF %: 55 PI's: N/A Carotid: Completed Mapping: N/A Dental: 05/04/[address] [facility] [address] Lu emailed PFT's: N/A UAnormal HCG:N/A ABO/ABO Confirmed:done Blood ordered: Yes TEVAR SA Swab: Yes - results: Pending Last Dose of Anticoagulation: pt states he has not take vit in a while Anticoagulant & Antiplatelet Medications Patient Encounter Information Not Found Op Note: Yes Pacer Check: NA Implants: no Consults: na DM: No Cardiac Surgical prep: admit after spinal drain 05/04/2021 SIGNATURE: Reyna Gaitan RN DATE of SERVICE: 04/11/2021 TIME of SERVICE: 11:06 AM CHECKED BY: Gentry Kirby APRN.ACETYLENE TORCH BURNER Pleural effusion 03/02/2021 03/14/2021 Overview: History: Post op problem Assessment: L pleural effusion seen on CXR; Chest US 03/02 with insufficient amount to norris. CXR 03/08 remains stable. Increased O2 needs during PM 03/09. This AM CXR relatively unchanged Plan: Continue diuresis, mobilize, wean O2 Left arm swelling 03/02/2021 03/14/2021 Overview: History: Post op problem Assessment: LUE edematous on exam, non painful. 03/08- swelling continues to improve Plan: DVT US: (+) for basilic vein thrombus. Per ER continue to monitor for now, swelling improving. Hypernatremia 02/26/2021 03/14/2021 Overview: History: Goal per neuro for sodium is 140-145 (avoid hyponatremia) Assessment: Na stabilized, pt diet advanced to dental soft 03/07 Sodium Date Value Ref Range Status 03/10/2021 141 136 - 144 mmol/L Final 03/09/2021 144 136 - 144 mmol/L Final 03/08/2021 145 (H) 136 - 144 mmol/L Final Plan: DC D5W 03/07, continue to monitor Na. Per neuro keep Na 140-145. Status post ascending aortic aneurysm repair 09/202003/07/2021 Overview: Ascending and Hybrid Aortic arch repair with a Frozen elephant trunk and stent to the LSCA (B-SAFER), AVr, CABGx3 (SEBASTIAN-LAD, SVG-seq to Ramus and OM1), LAAC. S/P aortic valve repair 02/22/2021 03/07/20 Overview: Ascending and Hybrid Aortic arch repair with a Frozen elephant trunk and stent to the LSCA (B-SAFER), AVr, CABGx3 (SEBASTIAN-LAD, SVG-seq to Ramus and OM1), LAAC. S/P CABG x 3 02/22/2021 03/07/2021 Overview: Ascending and Hybrid Aortic arch repair with a Frozen elephant trunk and stent to the LSCA (B-SAFER), AVr, CABGx3 (SEBASTIAN-LAD, SVG-seq to Ramus and OM1), LAAC. Obesity, Class I, BMI 30-34.9 02/22/2021 Overview: History: Pre op problem Assessment: Body mass index is 27.73 kg/m . Plan: Encourage lifestyle changes' Preop testing 02/21/2021 04/11/2021 Overview: [facility] PRE-OP CHECKLIST Dr Medley Aneurysm Repair Informed Consent Completed: No STS Score: unsupp REDO:No CAD: Yes - CAD on Problem List: Yes Is intended procedure a CABG: to be determine - is a beta chan ordered? Yes H & P completed: Yes PA/LAT: Completed CT: Completed MRI: N/A LE US: N/A Cath: Yes - reviewed: Yes [facility] EKG: Completed Is patient on Amiodarone? No Echo:pending EF %: PI's: N/A Carotid: Pending Mapping: N/A Dental: Not Cleared will have to be done postop PFT's: N/A Recent Labs 02/20/21 0048 WBC 5.34 HB 8.2* HCT 26.3* PLT 144* INR 1.0 CREAT 2.18* UA: Abnormal HCG:N/A ABO/ABO Confirmed: Yes ABO/RH(D) Date Value Ref Range Status 02/19/2021 A POSITIVE Final Blood ordered: Yes Willing to accept blood: Yes SA Swab: Yes - results: Positive SA/negative MRSA 02/19/2021 Last Dose of Anticoagulation: none Op Note: N/A Pacer Check: NA Implants: no DOMINANT HAND: right-handed Consults: Vasc Surgery DM: No Hemoglobin A1C (%) Date Value 02/19/2021 6.0 Cardiac Surgical prep: Yes SIGNATURE: Lydia Patel APRN.CNP DATE of SERVICE: 02/20/2021 TIME of SERVICE: 2:57 PM CHECKED BY: RE Need for assessment by dentistry for poor dentit ion 02/21/2021 03/08/2021 Overview: Pt is CICU-- urgent surgery--not able to see dentistry Will need to be evaluate by dentistry postop On mechanically assisted ventilation 02/21/2021 02/25/2021 Overview: History: Postop Assessment: Arrived intubated on mechanical ventilation. Plan: WTE Postoperative hypotension 02/21/20212020 Overview: History: Postop Assessment: arrived on levophed infusion. 02/23/2021 Titrate Levophed infusion for MAPS 70-80. Transfuse albumin. Cardiac insufficiency following cardiac surgery 02/21/2021 02/25/2021 Overview: History: Normal biventricular function pre-op Assessment: arrived on Epinephrine infusion. Plan: Maintain inotropic support for now. Postoperative pain 02/21/2021 05/08/2021 Overview: History: 05/05/2021: TEVAR extension Assessment: Postsurgical pain Plan: Fentanyl [employer], scheduled Tylenol, and PRN oxycodone Coagulopathy 02/21/2021 02/22/2021 Overview: History: coagulopathy in OR Assessment: received 2 PLT intra-op Plan: Repeat coags and replete factors as needed. documented as of this encounter (statuses as of 09/21/2021) [facility]01-24-2022 History of Past illness Narrative* Problem Noted Date Resolved Date Preop testing 04/11/2021 05/08/2021 Overview: [facility] PRE[facility] Informed Consent Completed: Yes STS Score: REDO:No CAD: Yes - CAD on Problem List: Yes Is intended procedure a CABG: No - is a beta chan ordered? No - reason: na H & P completed: Yes, will complete PA/LAT: done CT: Completed no fu need per Kandi Booker for thy. MRI: N/A BERONICA US: N/A Cath: Yes - reviewed: Yes EKG: Completed Is patient on Amiodarone? No Echo:Completed EF %: 55 PI's: N/A Carotid: Completed Mapping: N/A Dental: 05/04/[address] [facility] [address] Lu emailed PFT's: N/A UAnormal HCG:N/A ABO/ABO Confirmed:done Blood ordered: Yes TEVAR SA Swab: Yes - results: Pending Last Dose of Anticoagulation: pt states he has not take vit in a while Anticoagulant & Antiplatelet Medications Patient Encounter Information Not Found Op Note: Yes Pacer Check: NA Implants: no Consults: na DM: No Cardiac Surgical prep: admit after spinal drain 05/04/2021 SIGNATURE: Reyna Gaitan RN DATE of SERVICE: 04/11/2021 TIME of SERVICE: 11:06 AM CHECKED BY: Gentry Kirby APRN.ACETYLENE TORCH BURNER Pleural effusion 03/02/2021 03/14/2021 Overview: History: Post op problem Assessment: L pleural effusion seen on CXR; Chest US 03/02 with insufficient amount to norris. CXR 03/08 remains stable. Increased O2 needs during PM 03/09. This AM CXR relatively unchanged Plan: Continue diuresis, mobilize, wean O2 Left arm swelling 03/02/2021 03/14/2021 Overview: History: Post op problem Assessment: LUE edematous on exam, non painful. 03/08- swelling continues to improve Plan: DVT US: (+) for basilic vein thrombus. Per ER continue to monitor for now, swelling improving. Hypernatremia 02/26/2021 03/14/2021 Overview: History: Goal per neuro for sodium is 140-145 (avoid hyponatremia) Assessment: Na stabilized, pt diet advanced to dental soft 03/07 Sodium Date Value Ref Range Status 03/10/2021 141 136 - 144 mmol/L Final 03/09/2021 144 136 - 144 mmol/L Final 03/08/2021 145 (H) 136 - 144 mmol/L Final Plan: DC D5W 03/07, continue to monitor Na. Per neuro keep Na 140-145. Status post ascending aortic aneurysm repair 09/202003/07/2021 Overview: Ascending and Hybrid Aortic arch repair with a Frozen elephant trunk and stent to the LSCA (B-SAFER), AVr, CABGx3 (SEBASTIAN-LAD, SVG-seq to Ramus and OM1), LAAC. S/P aortic valve repair 02/22/2021 03/07/20 Overview: Ascending and Hybrid Aortic arch repair with a Frozen elephant trunk and stent to the LSCA (B-SAFER), AVr, CABGx3 (SEBASTIAN-LAD, SVG-seq to Ramus and OM1), LAAC. S/P CABG x 3 02/22/2021 03/07/2021 Overview: Ascending and Hybrid Aortic arch repair with a Frozen elephant trunk and stent to the LSCA (B-SAFER), AVr, CABGx3 (SEBASTIAN-LAD, SVG-seq to Ramus and OM1), LAAC. Obesity, Class I, BMI 30-34.9 02/22/2021 Overview: History: Pre op problem Assessment: Body mass index is 27.73 kg/m . Plan: Encourage lifestyle changes' Preop testing 02/21/2021 04/11/2021 Overview: [facility] PRE-OP CHECKLIST Dr Medley Aneurysm Repair Informed Consent Completed: No STS Score: unsupp REDO:No CAD: Yes - CAD on Problem List: Yes Is intended procedure a CABG: to be determine - is a beta chan ordered? Yes H & P completed: Yes PA/LAT: Completed CT: Completed MRI: N/A LE US: N/A Cath: Yes - reviewed: Yes [facility] EKG: Completed Is patient on Amiodarone? No Echo:pending EF %: PI's: N/A Carotid: Pending Mapping: N/A Dental: Not Cleared will have to be done postop PFT's: N/A Recent Labs 02/20/21 0048 WBC 5.34 HB 8.2* HCT 26.3* PLT 144* INR 1.0 CREAT 2.18* UA: Abnormal HCG:N/A ABO/ABO Confirmed: Yes ABO/RH(D) Date Value Ref Range Status 02/19/2021 A POSITIVE Final Blood ordered: Yes Willing to accept blood: Yes SA Swab: Yes - results: Positive SA/negative MRSA 02/19/2021 Last Dose of Anticoagulation: none Op Note: N/A Pacer Check: NA Implants: no DOMINANT HAND: right-handed Consults: Vasc Surgery DM: No Hemoglobin A1C (%) Date Value 02/19/2021 6.0 Cardiac Surgical prep: Yes SIGNATURE: Lydia Patel APRN.CNP DATE of SERVICE: 02/20/2021 TIME of SERVICE: 2:57 PM CHECKED BY: RE Need for assessment by dentistry for poor dentit ion 02/21/2021 03/08/2021 Overview: Pt is CICU-- urgent surgery--not able to see dentistry Will need to be evaluate by dentistry postop On mechanically assisted ventilation 02/21/2021 02/25/2021 Overview: History: Postop Assessment: Arrived intubated on mechanical ventilation. Plan: WTE Postoperative hypotension 02/21/20212020 Overview: History: Postop Assessment: arrived on levophed infusion. 02/23/2021 Titrate Levophed infusion for MAPS 70-80. Transfuse albumin. Cardiac insufficiency following cardiac surgery 02/21/2021 02/25/2021 Overview: History: Normal biventricular function pre-op Assessment: arrived on Epinephrine infusion. Plan: Maintain inotropic support for now. Postoperative pain 02/21/2021 05/08/2021 Overview: History: 05/05/2021: TEVAR extension Assessment: Postsurgical pain Plan: Fentanyl [employer], scheduled Tylenol, and PRN oxycodone Coagulopathy 02/21/2021 02/22/2021 Overview: History: coagulopathy in OR Assessment: received 2 PLT intra-op Plan: Repeat coags and replete factors as needed. documented as of this encounter (statuses as of 11/23/2021) [facility]01-24-2022 History of Past illness Narrative* Problem Noted Date Resolved Date Preop testing 04/11/2021 05/08/2021 Overview: [facility] PRE-OP CHECKLIST Informed Consent Completed: Yes STS Score: REDO:No CAD: Yes - CAD on Problem List: Yes Is intended procedure a CABG: No - is a beta chan ordered? No - reason: na H & P completed: Yes, will complete PA/LAT: done CT: Completed no fu need per Kandi Booker for thy. MRI: N/A LE US: N/A Cath: Yes - reviewed: Yes EKG: Completed Is patient on Amiodarone? No Echo:Completed EF %: 55 PI's: N/A Carotid: Completed Mapping: N/A Dental: 05/04/[address] [facility] [address] Lu emailed PFT's: N/A UAnormal HCG:N/A ABO/ABO Confirmed:done Blood ordered: Yes TEVAR SA Swab: Yes - results: Pending Last Dose of Anticoagulation: pt states he has not take vit in a while Anticoagulant & Antiplatelet Medications Patient Encounter Information Not Found Op Note: Yes Pacer Check: NA Implants: no Consults: na DM: No Cardiac Surgical prep: admit after spinal drain 05/04/2021 SIGNATURE: Reyna Gaitan RN DATE of SERVICE: 04/11/2021 TIME of SERVICE: 11:06 AM CHECKED BY: Gentry Kirby APRN.ACETYLENE TORCH BURNER Pleural effusion 03/02/2021 03/14/2021 Overview: History: Post op problem Assessment: L pleural effusion seen on CXR; Chest US 03/02 with insufficient amount to norris. CXR 03/08 remains stable. Increased O2 needs during PM 03/09. This AM CXR relatively unchanged Plan: Continue diuresis, mobilize, wean O2 Left arm swelling 03/02/2021 03/14/2021 Overview: History: Post op problem Assessment: LUE edematous on exam, non painful. 03/08- swelling continues to improve Plan: DVT US: (+) for basilic vein thrombus. Per ER continue to monitor for now, swelling improving. Hypernatremia 02/26/2021 03/14/2021 Overview: History: Goal per neuro for sodium is 140-145 (avoid hyponatremia) Assessment: Na stabilized, pt diet advanced to dental soft 03/07 Sodium Date Value Ref Range Status 03/10/2021 141 136 - 144 mmol/L Final 03/09/2021 144 136 - 144 mmol/L Final 03/08/2021 145 (H) 136 - 144 mmol/L Final Plan: DC D5W 03/07, continue to monitor Na. Per neuro keep Na 140-145. Status post ascending aortic aneurysm repair 09/202003/07/2021 Overview: Ascending and Hybrid Aortic arch repair with a Frozen elephant trunk and stent to the LSCA (B-SAFER), AVr, CABGx3 (SEBASTIAN-LAD, SVG-seq to Ramus and OM1), LAAC. S/P aortic valve repair 02/22/2021 03/07/20 Overview: Ascending and Hybrid Aortic arch repair with a Frozen elephant trunk and stent to the LSCA (B-SAFER), AVr, CABGx3 (SEBASTIAN-LAD, SVG-seq to Ramus and OM1), LAAC. S/P CABG x 3 02/22/2021 03/07/2021 Overview: Ascending and Hybrid Aortic arch repair with a Frozen elephant trunk and stent to the LSCA (B-SAFER), AVr, CABGx3 (SEBASTIAN-LAD, SVG-seq to Ramus and OM1), LAAC. Obesity, Class I, BMI 30-34.9 02/22/2021 Overview: History: Pre op problem Assessment: Body mass index is 27.73 kg/m . Plan: Encourage lifestyle changes' Preop testing 02/21/2021 04/11/2021 Overview: [facility] PRE-OP CHECKLIST Dr Medley Aneurysm Repair Informed Consent Completed: No STS Score: unsupp REDO:No CAD: Yes - CAD on Problem List: Yes Is intended procedure a CABG: to be determine - is a beta chan ordered? Yes H & P completed: Yes PA/LAT: Completed CT: Completed MRI: N/A LE US: N/A Cath: Yes - reviewed: Yes [facility] EKG: Completed Is patient on Amiodarone? No Echo:pending EF %: PI's: N/A Carotid: Pending Mapping: N/A Dental: Not Cleared will have to be done postop PFT's: N/A Recent Labs 02/20/21 0048 WBC 5.34 HB 8.2* HCT 26.3* PLT 144* INR 1.0 CREAT 2.18* UA: Abnormal HCG:N/A ABO/ABO Confirmed: Yes ABO/RH(D) Date Value Ref Range Status 02/19/2021 A POSITIVE Final Blood ordered: Yes Willing to accept blood: Yes SA Swab: Yes - results: Positive SA/negative MRSA 02/19/2021 Last Dose of Anticoagulation: none Op Note: N/A Pacer Check: NA Implants: no DOMINANT HAND: right-handed Consults: Vasc Surgery DM: No Hemoglobin A1C (%) Date Value 02/19/2021 6.0 Cardiac Surgical prep: Yes SIGNATURE: Lydia Patel APRN.CNP DATE of SERVICE: 02/20/2021 TIME of SERVICE: 2:57 PM CHECKED BY: RE Need for assessment by dentistry for poor dentit ion 02/21/2021 03/08/2021 Overview: Pt is CICU-- urgent surgery--not able to see dentistry Will need to be evaluate by dentistry postop On mechanically assisted ventilation 02/21/2021 02/25/2021 Overview: History: Postop Assessment: Arrived intubated on mechanical ventilation. Plan: WTE Postoperative hypotension 02/21/20212020 Overview: History: Postop Assessment: arrived on levophed infusion. 02/23/2021 Titrate Levophed infusion for MAPS 70-80. Transfuse albumin. Cardiac insufficiency following cardiac surgery 02/21/2021 02/25/2021 Overview: History: Normal biventricular function pre-op Assessment: arrived on Epinephrine infusion. Plan: Maintain inotropic support for now. Postoperative pain 02/21/2021 05/08/2021 Overview: History: 05/05/2021: TEVAR extension Assessment: Postsurgical pain Plan: Fentanyl [employer], scheduled Tylenol, and PRN oxycodone Coagulopathy 02/21/2021 02/22/2021 Overview: History: coagulopathy in OR Assessment: received 2 PLT intra-op Plan: Repeat coags and replete factors as needed. documented as of this encounter (statuses as of 02/08/2022) [facility]01-24-2022 History of Past illness Narrative* Problem Noted Date Resolved Date Preop testing 04/11/2021 05/08/2021 Overview: [facility] PRE-OP CHECKLIST Informed Consent Completed: Yes STS Score: REDO:No CAD: Yes - CAD on Problem List: Yes Is intended procedure a CABG: No - is a beta chan ordered? No - reason: na H & P completed: Yes, will complete PA/LAT: done CT: Completed no fu need per Kandi Booker for thy. MRI: N/A LE US: N/A Cath: Yes - reviewed: Yes EKG: Completed Is patient on Amiodarone? No Echo:Completed EF %: 55 PI's: N/A Carotid: Completed Mapping: N/A Dental: 05/04/[address] [facility] [address] Lu emailed PFT's: N/A UAnormal HCG:N/A ABO/ABO Confirmed:done Blood ordered: Yes TEVAR SA Swab: Yes - results: Pending Last Dose of Anticoagulation: pt states he has not take vit in a while Anticoagulant & Antiplatelet Medications Patient Encounter Information Not Found Op Note: Yes Pacer Check: NA Implants: no Consults: na DM: No Cardiac Surgical prep: admit after spinal drain 05/04/2021 SIGNATURE: Reyna Gaitan RN DATE of SERVICE: 04/11/2021 TIME of SERVICE: 11:06 AM CHECKED BY: Gentry Kirby APRN.ACETYLENE TORCH BURNER Pleural effusion 03/02/2021 03/14/2021 Overview: History: Post op problem Assessment: L pleural effusion seen on CXR; Chest US 03/02 with insufficient amount to norris. CXR 03/08 remains stable. Increased O2 needs during PM 03/09. This AM CXR relatively unchanged Plan: Continue diuresis, mobilize, wean O2 Left arm swelling 03/02/2021 03/14/2021 Overview: History: Post op problem Assessment: LUE edematous on exam, non painful. 03/08- swelling continues to improve Plan: DVT US: (+) for basilic vein thrombus. Per ER continue to monitor for now, swelling improving. Hypernatremia 02/26/2021 03/14/2021 Overview: History: Goal per neuro for sodium is 140-145 (avoid hyponatremia) Assessment: Na stabilized, pt diet advanced to dental soft 03/07 Sodium Date Value Ref Range Status 03/10/2021 141 136 - 144 mmol/L Final 03/09/2021 144 136 - 144 mmol/L Final 03/08/2021 145 (H) 136 - 144 mmol/L Final Plan: DC D5W 03/07, continue to monitor Na. Per neuro keep Na 140-145. Status post ascending aortic aneurysm repair 09/202003/07/2021 Overview: Ascending and Hybrid Aortic arch repair with a Frozen elephant trunk and stent to the LSCA (B-SAFER), AVr, CABGx3 (SEBASTIAN-LAD, SVG-seq to Ramus and OM1), LAAC. S/P aortic valve repair 02/22/2021 03/07/20 Overview: Ascending and Hybrid Aortic arch repair with a Frozen elephant trunk and stent to the LSCA (B-SAFER), AVr, CABGx3 (SEBASTIAN-LAD, SVG-seq to Ramus and OM1), LAAC. S/P CABG x 3 02/22/2021 03/07/2021 Overview: Ascending and Hybrid Aortic arch repair with a Frozen elephant trunk and stent to the LSCA (B-SAFER), AVr, CABGx3 (SEBASTIAN-LAD, SVG-seq to Ramus and OM1), LAAC. Obesity, Class I, BMI 30-34.9 02/22/2021 Overview: History: Pre op problem Assessment: Body mass index is 27.73 kg/m . Plan: Encourage lifestyle changes' Preop testing 02/21/2021 04/11/2021 Overview: [facility] PRE-OP CHECKLIST Dr Medley Aneurysm Repair Informed Consent Completed: No STS Score: unsupp REDO:No CAD: Yes - CAD on Problem List: Yes Is intended procedure a CABG: to be determine - is a beta chan ordered? Yes H & P completed: Yes PA/LAT: Completed CT: Completed MRI: N/A LE US: N/A Cath: Yes - reviewed: Yes [facility] EKG: Completed Is patient on Amiodarone? No Echo:pending EF %: PI's: N/A Carotid: Pending Mapping: N/A Dental: Not Cleared will have to be done postop PFT's: N/A Recent Labs 02/20/21 0048 WBC 5.34 HB 8.2* HCT 26.3* PLT 144* INR 1.0 CREAT 2.18* UA: Abnormal HCG:N/A ABO/ABO Confirmed: Yes ABO/RH(D) Date Value Ref Range Status 02/19/2021 A POSITIVE Final Blood ordered: Yes Willing to accept blood: Yes SA Swab: Yes - results: Positive SA/negative MRSA 02/19/2021 Last Dose of Anticoagulation: none Op Note: N/A Pacer Check: NA Implants: no DOMINANT HAND: right-handed Consults: Vasc Surgery DM: No Hemoglobin A1C (%) Date Value 02/19/2021 6.0 Cardiac Surgical prep: Yes SIGNATURE: Lydia Patel APRN.CNP DATE of SERVICE: 02/20/2021 TIME of SERVICE: 2:57 PM CHECKED BY: RE Need for assessment by dentistry for poor dentit ion 02/21/2021 03/08/2021 Overview: Pt is CICU-- urgent surgery--not able to see dentistry Will need to be evaluate by dentistry postop On mechanically assisted ventilation 02/21/2021 02/25/2021 Overview: History: Postop Assessment: Arrived intubated on mechanical ventilation. Plan: WTE Postoperative hypotension 02/21/20212020 Overview: History: Postop Assessment: arrived on levophed infusion. 02/23/2021 Titrate Levophed infusion for MAPS 70-80. Transfuse albumin. Cardiac insufficiency following cardiac surgery 02/21/2021 02/25/2021 Overview: History: Normal biventricular function pre-op Assessment: arrived on Epinephrine infusion. Plan: Maintain inotropic support for now. Postoperative pain 02/21/2021 05/08/2021 Overview: History: 05/05/2021: TEVAR extension Assessment: Postsurgical pain Plan: Fentanyl [employer], scheduled Tylenol, and PRN oxycodone Coagulopathy 02/21/2021 02/22/2021 Overview: History: coagulopathy in OR Assessment: received 2 PLT intra-op Plan: Repeat coags and replete factors as needed. documented as of this encounter (statuses as of 05/12/2022) [facility]01-24-[facility] History of Past illness Narrative* Problem Noted Date Resolved Date Preop testing 04/11/2021 05/08/2021 Overview: [facility] PRE-OP CHECKLIST Informed Consent Completed: Yes STS Score: REDO:No CAD: Yes - CAD on Problem List: Yes Is intended procedure a CABG: No - is a beta chan ordered? No - reason: na H & P completed: Yes, will complete PA/LAT: done CT: Completed no fu need per Kandi S for thy. MRI: N/A LE US: N/A Cath: Yes - reviewed: Yes EKG: Completed Is patient on Amiodarone? No Echo:Completed EF %: 55 PI's: N/A Carotid: Completed Mapping: N/A Dental: 05/04/[address] [facility] [address] Lu emailed PFT's: N/A UAnormal HCG:N/A ABO/ABO Confirmed:done Blood ordered: Yes TEVAR SA Swab: Yes - results: Pending Last Dose of Anticoagulation: pt states he has not take vit in a while Anticoagulant & Antiplatelet Medications Patient Encounter Information Not Found Op Note: Yes Pacer Check: NA Implants: no Consults: na DM: No Cardiac Surgical prep: admit after spinal drain 05/04/2021 SIGNATURE: Reyna Gaitan RN DATE of SERVICE: 04/11/2021 TIME of SERVICE: 11:06 AM CHECKED BY: Gentry Kirby APRN.ACETYLENE TORCH BURNER Pleural effusion 03/02/2021 03/14/2021 Overview: History: Post op problem Assessment: L pleural effusion seen on CXR; Chest US 03/02 with insufficient amount to norris. CXR 03/08 remains stable. Increased O2 needs during PM 03/09. This AM CXR relatively unchanged Plan: Continue diuresis, mobilize, wean O2 Left arm swelling 03/02/2021 03/14/2021 Overview: History: Post op problem Assessment: LUE edematous on exam, non painful. 03/08- swelling continues to improve Plan: DVT US: (+) for basilic vein thrombus. Per ER continue to monitor for now, swelling improving. Hypernatremia 02/26/2021 03/14/2021 Overview: History: Goal per neuro for sodium is 140-145 (avoid hyponatremia) Assessment: Na stabilized, pt diet advanced to dental soft 03/07 Sodium Date Value Ref Range Status 03/10/2021 141 136 - 144 mmol/L Final 03/09/2021 144 136 - 144 mmol/L Final 03/08/2021 145 (H) 136 - 144 mmol/L Final Plan: DC D5W 03/07, continue to monitor Na. Per neuro keep Na 140-145. Status post ascending aortic aneurysm repair 09/202003/07/2021 Overview: Ascending and Hybrid Aortic arch repair with a Frozen elephant trunk and stent to the LSCA (B-SAFER), AVr, CABGx3 (SEBASTIAN-LAD, SVG-seq to Ramus and OM1), LAAC. S/P aortic valve repair 02/22/2021 03/07/20 Overview: Ascending and Hybrid Aortic arch repair with a Frozen elephant trunk and stent to the LSCA (B-SAFER), AVr, CABGx3 (SEBASTIAN-LAD, SVG-seq to Ramus and OM1), LAAC. S/P CABG x 3 02/22/2021 03/07/2021 Overview: Ascending and Hybrid Aortic arch repair with a Frozen elephant trunk and stent to the LSCA (B-SAFER), AVr, CABGx3 (SEBASTIAN-LAD, SVG-seq to Ramus and OM1), LAAC. Obesity, Class I, BMI 30-34.9 02/22/2021 Overview: History: Pre op problem Assessment: Body mass index is 27.73 kg/m . Plan: Encourage lifestyle changes' Preop testing 02/21/2021 04/11/2021 Overview: [facility] PRE-OP CHECKLIST Dr Medley Aneurysm Repair Informed Consent Completed: No STS Score: unsupp REDO:No CAD: Yes - CAD on Problem List: Yes Is intended procedure a CABG: to be determine - is a beta chan ordered? Yes H & P completed: Yes PA/LAT: Completed CT: Completed MRI: N/A LE US: N/A Cath: Yes - reviewed: Yes [facility] EKG: Completed Is patient on Amiodarone? No Echo:pending EF %: PI's: N/A Carotid: Pending Mapping: N/A Dental: Not Cleared will have to be done postop PFT's: N/A Recent Labs 02/20/21 0048 WBC 5.34 HB 8.2* HCT 26.3* PLT 144* INR 1.0 CREAT 2.18* UA: Abnormal HCG:N/A ABO/ABO Confirmed: Yes ABO/RH(D) Date Value Ref Range Status 02/19/2021 A POSITIVE Final Blood ordered: Yes Willing to accept blood: Yes SA Swab: Yes - results: Positive SA/negative MRSA 02/19/2021 Last Dose of Anticoagulation: none Op Note: N/A Pacer Check: NA Implants: no DOMINANT HAND: right-handed Consults: Vasc Surgery DM: No Hemoglobin A1C (%) Date Value 02/19/2021 6.0 Cardiac Surgical prep: Yes SIGNATURE: Lydia Patel APRN.CNP DATE of SERVICE: 02/20/2021 TIME of SERVICE: 2:57 PM CHECKED BY: RE Need for assessment by dentistry for poor dentit ion 02/21/2021 03/08/2021 Overview: Pt is CICU-- urgent surgery--not able to see dentistry Will need to be evaluate by dentistry postop On mechanically assisted ventilation 02/21/2021 02/25/2021 Overview: History: Postop Assessment: Arrived intubated on mechanical ventilation. Plan: WTE Postoperative hypotension 02/21/20212020 Overview: History: Postop Assessment: arrived on levophed infusion. 02/23/2021 Titrate Levophed infusion for MAPS 70-80. Transfuse albumin. Cardiac insufficiency following cardiac surgery 02/21/2021 02/25/2021 Overview: History: Normal biventricular function pre-op Assessment: arrived on Epinephrine infusion. Plan: Maintain inotropic support for now. Postoperative pain 02/21/2021 05/08/2021 Overview: History: 05/05/2021: TEVAR extension Assessment: Postsurgical pain Plan: Fentanyl [employer], scheduled Tylenol, and PRN oxycodone Coagulopathy 02/21/2021 02/22/2021 Overview: History: coagulopathy in OR Assessment: received 2 PLT intra-op Plan: Repeat coags and replete factors as needed. documented as of this encounter (statuses as of 07/10/2022) [facility]01-[facility]20[facility] History of Past illness Narrative* Problem Noted Date Resolved Date Preop testing 04/11/2021 05/08/2021 Overview: [facility] PRE-OP CHECKLIST Informed Consent Completed: Yes STS Score: REDO:No CAD: Yes - CAD on Problem List: Yes Is intended procedure a CABG: No - is a beta chan ordered? No - reason: na H & P completed: Yes, will complete PA/LAT: done CT: Completed no fu need per Kandi Booker for thy. MRI: N/A LE US: N/A Cath: Yes - reviewed: Yes EKG: Completed Is patient on Amiodarone? No Echo:Completed EF %: 55 PI's: N/A Carotid: Completed Mapping: N/A Dental: 05/04/[address] [facility] [address] Lu emailed PFT's: N/A UAnormal HCG:N/A ABO/ABO Confirmed:done Blood ordered: Yes TEVAR SA Swab: Yes - results: Pending Last Dose of Anticoagulation: pt states he has not take vit in a while Anticoagulant & Antiplatelet Medications Patient Encounter Information Not Found Op Note: Yes Pacer Check: NA Implants: no Consults: na DM: No Cardiac Surgical prep: admit after spinal drain 05/04/2021 SIGNATURE: Reyna Gaitan RN DATE of SERVICE: 04/11/2021 TIME of SERVICE: 11:06 AM CHECKED BY: Gentry Kirby APRN.ACETYLENE TORCH BURNER Pleural effusion 03/02/2021 03/14/2021 Overview: History: Post op problem Assessment: L pleural effusion seen on CXR; Chest US 03/02 with insufficient amount to norris. CXR 03/08 remains stable. Increased O2 needs during PM 03/09. This AM CXR relatively unchanged Plan: Continue diuresis, mobilize, wean O2 Left arm swelling 03/02/2021 03/14/2021 Overview: History: Post op problem Assessment: LUE edematous on exam, non painful. 03/08- swelling continues to improve Plan: DVT US: (+) for basilic vein thrombus. Per ER continue to monitor for now, swelling improving. Hypernatremia 02/26/2021 03/14/2021 Overview: History: Goal per neuro for sodium is 140-145 (avoid hyponatremia) Assessment: Na stabilized, pt diet advanced to dental soft 03/07 Sodium Date Value Ref Range Status 03/10/2021 141 136 - 144 mmol/L Final 03/09/2021 144 136 - 144 mmol/L Final 03/08/2021 145 (H) 136 - 144 mmol/L Final Plan: DC D5W 03/07, continue to monitor Na. Per neuro keep Na 140-145. Status post ascending aortic aneurysm repair 09/202003/07/2021 Overview: Ascending and Hybrid Aortic arch repair with a Frozen elephant trunk and stent to the LSCA (B-SAFER), AVr, CABGx3 (SEBASTIAN-LAD, SVG-seq to Ramus and OM1), LAAC. S/P aortic valve repair 02/22/2021 03/07/20 21 Overview: Ascending and Hybrid Aortic arch repair with a Frozen elephant trunk and stent to the LSCA (B-SAFER), AVr, CABGx3 (SEBASTIAN-LAD, SVG-seq to Ramus and OM1), LAAC. S/P CABG x 3 02/22/2021 03/07/2021 Overview: Ascending and Hybrid Aortic arch repair with a Frozen elephant trunk and stent to the LSCA (B-SAFER), AVr, CABGx3 (SEBASTIAN-LAD, SVG-seq to Ramus and OM1), LAAC. Obesity, Class I, BMI 30-34.9 02/22/2021 Overview: History: Pre op problem Assessment: Body mass index is 27.73 kg/m . Plan: Encourage lifestyle changes' Preop testing 02/21/2021 04/11/2021 Overview[facility]OP CHECKLIST Dr Medley Aneurysm Repair Informed Consent Completed: No STS Score: unsupp REDO:No CAD: Yes - CAD on Problem List: Yes Is intended procedure a CABG: to be determine - is a beta chan ordered? Yes H & P completed: Yes PA/LAT: Completed CT: Completed MRI: N/A LE US: N/A Cath: Yes - reviewed: Yes [facility] EKG: Completed Is patient on Amiodarone? No Echo:pending EF %: PI's: N/A Carotid: Pending Mapping: N/A Dental: Not Cleared will have to be done postop PFT's: N/A Recent Labs 02/20/21 0048 WBC 5.34 HB 8.2* HCT 26.3* PLT 144* INR 1.0 CREAT 2.18* UA: Abnormal HCG:N/A ABO/ABO Confirmed: Yes ABO/RH(D) Date Value Ref Range Status 02/19/2021 A POSITIVE Final Blood ordered: Yes Willing to accept blood: Yes SA Swab: Yes - results: Positive SA/negative MRSA 02/19/2021 Last Dose of Anticoagulation: none Op Note: N/A Pacer Check: NA Implants: no DOMINANT HAND: right-handed Consults: Vasc Surgery DM: No Hemoglobin A1C (%) Date Value 02/19/2021 6.0 Cardiac Surgical prep: Yes SIGNATURE: Lydia Patel APRN.CNP DATE of SERVICE: 02/20/2021 TIME of SERVICE: 2:57 PM CHECKED BY: OFE Need for assessment by dentistry for poor dentit ion 02/21/2021 03/08/2021 Overview: Pt is CICU-- urgent surgery--not able to see dentistry Will need to be evaluate by dentistry postop On mechanically assisted ventilation 02/21/2021 02/25/2021 Overview: History: Postop Assessment: Arrived intubated on mechanical ventilation. Plan: WTE Postoperative hypotension 02/21/20212020 Overview: History: Postop Assessment: arrived on levophed infusion. 02/23/2021 Titrate Levophed infusion for MAPS 70-80. Transfuse albumin. Cardiac insufficiency following cardiac surgery 02/21/2021 02/25/2021 Overview: History: Normal biventricular function pre-op Assessment: arrived on Epinephrine infusion. Plan: Maintain inotropic support for now. Postoperative pain 02/21/2021 05/08/2021 Overview: History: 05/05/2021: TEVAR extension Assessment: Postsurgical pain Plan: Fentanyl [employer], scheduled Tylenol, and PRN oxycodone Coagulopathy 02/21/2021 02/22/2021 Overview: History: coagulopathy in OR Assessment: received 2 PLT intra-op Plan: Repeat coags and replete factors as needed. documented as of this encounter (statuses as of 07/26/2022) [facility]01-24-2022 History of Past illness Narrative* Problem Noted Date Resolved Date Preop testing 04/11/2021 05/08/2021 Overview: [facility] PRE[facility] Informed Consent Completed: Yes STS Score: REDO:No CAD: Yes - CAD on Problem List: Yes Is intended procedure a CABG: No - is a beta chan ordered? No - reason: na H & P completed: Yes, will complete PA/LAT: done CT: Completed no fu need per Kandi Booker for thy. MRI: N/A LE US: N/A Cath: Yes - reviewed: Yes EKG: Completed Is patient on Amiodarone? No Echo:Completed EF %: 55 PI's: N/A Carotid: Completed Mapping: N/A Dental: 05/04/[address] [facility] [address] Lu emailed PFT's: N/A UAnormal HCG:N/A ABO/ABO Confirmed:done Blood ordered: Yes TEVAR SA Swab: Yes - results: Pending Last Dose of Anticoagulation: pt states he has not take vit in a while Anticoagulant & Antiplatelet Medications Patient Encounter Information Not Found Op Note: Yes Pacer Check: NA Implants: no Consults: na DM: No Cardiac Surgical prep: admit after spinal drain 05/04/2021 SIGNATURE: Reyna Gaitan RN DATE of SERVICE: 04/11/2021 TIME of SERVICE: 11:06 AM CHECKED BY: Gentry Kirby APRN.ACETYLENE TORCH BURNER Pleural effusion 03/02/2021 03/14/2021 Overview: History: Post op problem Assessment: L pleural effusion seen on CXR; Chest US 03/02 with insufficient amount to norris. CXR 03/08 remains stable. Increased O2 needs during PM 03/09. This AM CXR relatively unchanged Plan: Continue diuresis, mobilize, wean O2 Left arm swelling 03/02/2021 03/14/2021 Overview: History: Post op problem Assessment: LUE edematous on exam, non painful. 03/08- swelling continues to improve Plan: DVT US: (+) for basilic vein thrombus. Per ER continue to monitor for now, swelling improving. Hypernatremia 02/26/2021 03/14/2021 Overview: History: Goal per neuro for sodium is 140-145 (avoid hyponatremia) Assessment: Na stabilized, pt diet advanced to dental soft 03/07 Sodium Date Value Ref Range Status 03/10/2021 141 136 - 144 mmol/L Final 03/09/2021 144 136 - 144 mmol/L Final 03/08/2021 145 (H) 136 - 144 mmol/L Final Plan: DC D5W 03/07, continue to monitor Na. Per neuro keep Na 140-145. Status post ascending aortic aneurysm repair 09/202003/07/2021 Overview: Ascending and Hybrid Aortic arch repair with a Frozen elephant trunk and stent to the LSCA (B-SAFER), AVr, CABGx3 (SEBASTIAN-LAD, SVG-seq to Ramus and OM1), LAAC. S/P aortic valve repair 02/22/2021 03/07/20 Overview: Ascending and Hybrid Aortic arch repair with a Frozen elephant trunk and stent to the LSCA (B-SAFER), AVr, CABGx3 (SEBASTIAN-LAD, SVG-seq to Ramus and OM1), LAAC. S/P CABG x 3 02/22/2021 03/07/2021 Overview: Ascending and Hybrid Aortic arch repair with a Frozen elephant trunk and stent to the LSCA (B-SAFER), AVr, CABGx3 (SEBASTIAN-LAD, SVG-seq to Ramus and OM1), LAAC. Obesity, Class I, BMI 30-34.9 02/22/2021 Overview: History: Pre op problem Assessment: Body mass index is 27.73 kg/m . Plan: Encourage lifestyle changes' Preop testing 02/21/2021 04/11/2021 Overview: [facility] PRE-OP CHECKLIST Dr Medley Aneurysm Repair Informed Consent Completed: No STS Score: unsupp REDO:No CAD: Yes - CAD on Problem List: Yes Is intended procedure a CABG: to be determine - is a beta chan ordered? Yes H & P completed: Yes PA/LAT: Completed CT: Completed MRI: N/A LE US: N/A Cath: Yes - reviewed: Yes [facility] EKG: Completed Is patient on Amiodarone? No Echo:pending EF %: PI's: N/A Carotid: Pending Mapping: N/A Dental: Not Cleared will have to be done postop PFT's: N/A Recent Labs 02/20/21 0048 WBC 5.34 HB 8.2* HCT 26.3* PLT 144* INR 1.0 CREAT 2.18* UA: Abnormal HCG:N/A ABO/ABO Confirmed: Yes ABO/RH(D) Date Value Ref Range Status 02/19/2021 A POSITIVE Final Blood ordered: Yes Willing to accept blood: Yes SA Swab: Yes - results: Positive SA/negative MRSA 02/19/2021 Last Dose of Anticoagulation: none Op Note: N/A Pacer Check: NA Implants: no DOMINANT HAND: right-handed Consults: Vasc Surgery DM: No Hemoglobin A1C (%) Date Value 02/19/2021 6.0 Cardiac Surgical prep: Yes SIGNATURE: Lydia Patel APRN.CNP DATE of SERVICE: 02/20/2021 TIME of SERVICE: 2:57 PM CHECKED BY: RE Need for assessment by dentistry for poor dentit ion 02/21/2021 03/08/2021 Overview: Pt is CICU-- urgent surgery--not able to see dentistry Will need to be evaluate by dentistry postop On mechanically assisted ventilation 02/21/2021 02/25/2021 Overview: History: Postop Assessment: Arrived intubated on mechanical ventilation. Plan: WTE Postoperative hypotension 02/21/20212020 Overview: History: Postop Assessment: arrived on levophed infusion. 02/23/2021 Titrate Levophed infusion for MAPS 70-80. Transfuse albumin. Cardiac insufficiency following cardiac surgery 02/21/2021 02/25/2021 Overview: History: Normal biventricular function pre-op Assessment: arrived on Epinephrine infusion. Plan: Maintain inotropic support for now. Postoperative pain 02/21/2021 05/08/2021 Overview: History: 05/05/2021: TEVAR extension Assessment: Postsurgical pain Plan: Fentanyl [employer], scheduled Tylenol, and PRN oxycodone Coagulopathy 02/21/2021 02/22/2021 Overview: History: coagulopathy in OR Assessment: received 2 PLT intra-op Plan: Repeat coags and replete factors as needed. documented as of this encounter (statuses as of 07/26/2022) [facility]01-24-2022 History of Past illness Narrative* Problem Noted Date Resolved Date Preop testing 04/11/2021 05/08/2021 Overview: [facility] PRE[facility] Informed Consent Completed: Yes STS Score: REDO:No CAD: Yes - CAD on Problem List: Yes Is intended procedure a CABG: No - is a beta chan ordered? No - reason: na H & P completed: Yes, will complete PA/LAT: done CT: Completed no fu need per Kandi Booker for thy. MRI: N/A LE US: N/A Cath: Yes - reviewed: Yes EKG: Completed Is patient on Amiodarone? No Echo:Completed EF %: 55 PI's: N/A Carotid: Completed Mapping: N/A Dental: 05/04/[address] [facility] [address] Lu emailed PFT's: N/A UAnormal HCG:N/A ABO/ABO Confirmed:done Blood ordered: Yes TEVAR SA Swab: Yes - results: Pending Last Dose of Anticoagulation: pt states he has not take vit in a while Anticoagulant & Antiplatelet Medications Patient Encounter Information Not Found Op Note: Yes Pacer Check: NA Implants: no Consults: na DM: No Cardiac Surgical prep: admit after spinal drain 05/04/2021 SIGNATURE: Reyna Gaitan RN DATE of SERVICE: 04/11/2021 TIME of SERVICE: 11:06 AM CHECKED BY: Gentry Kirby APRN.ACETYLENE TORCH BURNER Pleural effusion 03/02/2021 03/14/2021 Overview: History: Post op problem Assessment: L pleural effusion seen on CXR; Chest US 03/02 with insufficient amount to norris. CXR 03/08 remains stable. Increased O2 needs during PM 03/09. This AM CXR relatively unchanged Plan: Continue diuresis, mobilize, wean O2 Left arm swelling 03/02/2021 03/14/2021 Overview: History: Post op problem Assessment: LUE edematous on exam, non painful. 03/08- swelling continues to improve Plan: DVT US: (+) for basilic vein thrombus. Per ER continue to monitor for now, swelling improving. Hypernatremia 02/26/2021 03/14/2021 Overview: History: Goal per neuro for sodium is 140-145 (avoid hyponatremia) Assessment: Na stabilized, pt diet advanced to dental soft 03/07 Sodium Date Value Ref Range Status 03/10/2021 141 136 - 144 mmol/L Final 03/09/2021 144 136 - 144 mmol/L Final 03/08/2021 145 (H) 136 - 144 mmol/L Final Plan: DC D5W 03/07, continue to monitor Na. Per neuro keep Na 140-145. Status post ascending aortic aneurysm repair 09/202003/07/2021 Overview: Ascending and Hybrid Aortic arch repair with a Frozen elephant trunk and stent to the LSCA (B-SAFER), AVr, CABGx3 (SEBASTIAN-LAD, SVG-seq to Ramus and OM1), LAAC. S/P aortic valve repair 02/22/2021 03/07/20 Overview: Ascending and Hybrid Aortic arch repair with a Frozen elephant trunk and stent to the LSCA (B-SAFER), AVr, CABGx3 (SEBASTIAN-LAD, SVG-seq to Ramus and OM1), LAAC. S/P CABG x 3 02/22/2021 03/07/2021 Overview: Ascending and Hybrid Aortic arch repair with a Frozen elephant trunk and stent to the LSCA (B-SAFER), AVr, CABGx3 (SEBASTIAN-LAD, SVG-seq to Ramus and OM1), LAAC. Obesity, Class I, BMI 30-34.9 02/22/2021 Overview: History: Pre op problem Assessment: Body mass index is 27.73 kg/m . Plan: Encourage lifestyle changes' Preop testing 02/21/2021 04/11/2021 Overview: [facility] PRE-OP CHECKLIST Dr Medley Aneurysm Repair Informed Consent Completed: No STS Score: unsupp REDO:No CAD: Yes - CAD on Problem List: Yes Is intended procedure a CABG: to be determine - is a beta chan ordered? Yes H & P completed: Yes PA/LAT: Completed CT: Completed MRI: N/A LE US: N/A Cath: Yes - reviewed: Yes [facility] EKG: Completed Is patient on Amiodarone? No Echo:pending EF %: PI's: N/A Carotid: Pending Mapping: N/A Dental: Not Cleared will have to be done postop PFT's: N/A Recent Labs 02/20/21 0048 WBC 5.34 HB 8.2* HCT 26.3* PLT 144* INR 1.0 CREAT 2.18* UA: Abnormal HCG:N/A ABO/ABO Confirmed: Yes ABO/RH(D) Date Value Ref Range Status 02/19/2021 A POSITIVE Final Blood ordered: Yes Willing to accept blood: Yes SA Swab: Yes - results: Positive SA/negative MRSA 02/19/2021 Last Dose of Anticoagulation: none Op Note: N/A Pacer Check: NA Implants: no DOMINANT HAND: right-handed Consults: Vasc Surgery DM: No Hemoglobin A1C (%) Date Value 02/19/2021 6.0 Cardiac Surgical prep: Yes SIGNATURE: Lydia Patel APRN.CNP DATE of SERVICE: 02/20/2021 TIME of SERVICE: 2:57 PM CHECKED BY: RE Need for assessment by dentistry for poor dentit ion 02/21/2021 03/08/2021 Overview: Pt is CICU-- urgent surgery--not able to see dentistry Will need to be evaluate by dentistry postop On mechanically assisted ventilation 02/21/2021 02/25/2021 Overview: History: Postop Assessment: Arrived intubated on mechanical ventilation. Plan: WTE Postoperative hypotension 02/21/20212020 Overview: History: Postop Assessment: arrived on levophed infusion. 02/23/2021 Titrate Levophed infusion for MAPS 70-80. Transfuse albumin. Cardiac insufficiency following cardiac surgery 02/21/2021 02/25/2021 Overview: History: Normal biventricular function pre-op Assessment: arrived on Epinephrine infusion. Plan: Maintain inotropic support for now. Postoperative pain 02/21/2021 05/08/2021 Overview: History: 05/05/2021: TEVAR extension Assessment: Postsurgical pain Plan: Fentanyl [employer], scheduled Tylenol, and PRN oxycodone Coagulopathy 02/21/2021 02/22/2021 Overview: History: coagulopathy in OR Assessment: received 2 PLT intra-op Plan: Repeat coags and replete factors as needed. documented as of this encounter (statuses as of 07/26/2022) [facility]01-24-2022 History of Past illness Narrative* Problem Noted Date Resolved Date Preop testing 04/11/2021 05/08/2021 Overview: [facility] PRE-OP CHECKLIST Informed Consent Completed: Yes STS Score: REDO:No CAD: Yes - CAD on Problem List: Yes Is intended procedure a CABG: No - is a beta chan ordered? No - reason: na H & P completed: Yes, will complete PA/LAT: done CT: Completed no fu need per Kandi Booker for thy. MRI: N/A LE US: N/A Cath: Yes - reviewed: Yes EKG: Completed Is patient on Amiodarone? No Echo:Completed EF %: 55 PI's: N/A Carotid: Completed Mapping: N/A Dental: 05/04/[address] [facility] [address] Lu emailed PFT's: N/A UAnormal HCG:N/A ABO/ABO Confirmed:done Blood ordered: Yes TEVAR SA Swab: Yes - results: Pending Last Dose of Anticoagulation: pt states he has not take vit in a while Anticoagulant & Antiplatelet Medications Patient Encounter Information Not Found Op Note: Yes Pacer Check: NA Implants: no Consults: na DM: No Cardiac Surgical prep: admit after spinal drain 05/04/2021 SIGNATURE: Reyna Gaitan RN DATE of SERVICE: 04/11/2021 TIME of SERVICE: 11:06 AM CHECKED BY: Gentry Kirby APRN.ACETYLENE TORCH BURNER Pleural effusion 03/02/2021 03/14/2021 Overview: History: Post op problem Assessment: L pleural effusion seen on CXR; Chest US 03/02 with insufficient amount to norris. CXR 03/08 remains stable. Increased O2 needs during PM 03/09. This AM CXR relatively unchanged Plan: Continue diuresis, mobilize, wean O2 Left arm swelling 03/02/2021 03/14/2021 Overview: History: Post op problem Assessment: LUE edematous on exam, non painful. 03/08- swelling continues to improve Plan: DVT US: (+) for basilic vein thrombus. Per ER continue to monitor for now, swelling improving. Hypernatremia 02/26/2021 03/14/2021 Overview: History: Goal per neuro for sodium is 140-145 (avoid hyponatremia) Assessment: Na stabilized, pt diet advanced to dental soft 03/07 Sodium Date Value Ref Range Status 03/10/2021 141 136 - 144 mmol/L Final 03/09/2021 144 136 - 144 mmol/L Final 03/08/2021 145 (H) 136 - 144 mmol/L Final Plan: DC D5W 03/07, continue to monitor Na. Per neuro keep Na 140-145. Status post ascending aortic aneurysm repair 09/202003/07/2021 Overview: Ascending and Hybrid Aortic arch repair with a Frozen elephant trunk and stent to the LSCA (B-SAFER), AVr, CABGx3 (SEBASTIAN-LAD, SVG-seq to Ramus and OM1), LAAC. S/P aortic valve repair 02/22/2021 03/07/20 21 Overview: Ascending and Hybrid Aortic arch repair with a Frozen elephant trunk and stent to the LSCA (B-SAFER), AVr, CABGx3 (SEBASTIAN-LAD, SVG-seq to Ramus and OM1), LAAC. S/P CABG x 3 02/22/2021 03/07/2021 Overview: Ascending and Hybrid Aortic arch repair with a Frozen elephant trunk and stent to the LSCA (B-SAFER), AVr, CABGx3 (SEBASTIAN-LAD, SVG-seq to Ramus and OM1), LAAC. Obesity, Class I, BMI 30-34.9 02/22/2021 Overview: History: Pre op problem Assessment: Body mass index is 27.73 kg/m . Plan: Encourage lifestyle changes' Preop testing 02/21/2021 04/11/2021 Overview: [facility] PRE-OP CHECKLIST Dr Medley Aneurysm Repair Informed Consent Completed: No STS Score: unsupp REDO:No CAD: Yes - CAD on Problem List: Yes Is intended procedure a CABG: to be determine - is a beta chan ordered? Yes H & P completed: Yes PA/LAT: Completed CT: Completed MRI: N/A LE US: N/A Cath: Yes - reviewed: Yes [facility] EKG: Completed Is patient on Amiodarone? No Echo:pending EF %: PI's: N/A Carotid: Pending Mapping: N/A Dental: Not Cleared will have to be done postop PFT's: N/A Recent Labs 02/20/21 0048 WBC 5.34 HB 8.2* HCT 26.3* PLT 144* INR 1.0 CREAT 2.18* UA: Abnormal HCG:N/A ABO/ABO Confirmed: Yes ABO/RH(D) Date Value Ref Range Status 02/19/2021 A POSITIVE Final Blood ordered: Yes Willing to accept blood: Yes SA Swab: Yes - results: Positive SA/negative MRSA 02/19/2021 Last Dose of Anticoagulation: none Op Note: N/A Pacer Check: NA Implants: no DOMINANT HAND: right-handed Consults: Vasc Surgery DM: No Hemoglobin A1C (%) Date Value 02/19/2021 6.0 Cardiac Surgical prep: Yes SIGNATURE: Lydia Patel APRN.CNP DATE of SERVICE: 02/20/2021 TIME of SERVICE: 2:57 PM CHECKED BY: RE Need for assessment by dentistry for poor dentit ion 02/21/2021 03/08/2021 Overview: Pt is CICU-- urgent surgery--not able to see dentistry Will need to be evaluate by dentistry postop On mechanically assisted ventilation 02/21/2021 02/25/2021 Overview: History: Postop Assessment: Arrived intubated on mechanical ventilation. Plan: WTE Postoperative hypotension 02/21/20212020 Overview: History: Postop Assessment: arrived on levophed infusion. 02/23/2021 Titrate Levophed infusion for MAPS 70-80. Transfuse albumin. Cardiac insufficiency following cardiac surgery 02/21/2021 02/25/2021 Overview: History: Normal biventricular function pre-op Assessment: arrived on Epinephrine infusion. Plan: Maintain inotropic support for now. Postoperative pain 02/21/2021 05/08/2021 Overview: History: 05/05/2021: TEVAR extension Assessment: Postsurgical pain Plan: Fentanyl [employer], scheduled Tylenol, and PRN oxycodone Coagulopathy 02/21/2021 02/22/2021 Overview: History: coagulopathy in OR Assessment: received 2 PLT intra-op Plan: Repeat coags and replete factors as needed. documented as of this encounter (statuses as of 08/01/2022) [facility]01-24-[facility] History of Past illness Narrative* Problem Noted Date Resolved Date Preop testing 04/11/2021 05/08/2021 Overview: [facility] PRE-OP CHECKLIST Informed Consent Completed: Yes STS Score: REDO:No CAD: Yes - CAD on Problem List: Yes Is intended procedure a CABG: No - is a beta chan ordered? No - reason: na H & P completed: Yes, will complete PA/LAT: done CT: Completed no fu need per Kandi Booker for thy. MRI: N/A LE US: N/A Cath: Yes - reviewed: Yes EKG: Completed Is patient on Amiodarone? No Echo:Completed EF %: 55 PI's: N/A Carotid: Completed Mapping: N/A Dental: 05/04/[address] [facility] [address] Lu emailed PFT's: N/A UAnormal HCG:N/A ABO/ABO Confirmed:done Blood ordered: Yes TEVAR SA Swab: Yes - results: Pending Last Dose of Anticoagulation: pt states he has not take vit in a while Anticoagulant & Antiplatelet Medications Patient Encounter Information Not Found Op Note: Yes Pacer Check: NA Implants: no Consults: na DM: No Cardiac Surgical prep: admit after spinal drain 05/04/2021 SIGNATURE: Reyna Gaitan RN DATE of SERVICE: 04/11/2021 TIME of SERVICE: 11:06 AM CHECKED BY: Gentry Kirby APRN.ACETYLENE TORCH BURNER Pleural effusion 03/02/2021 03/14/2021 Overview: History: Post op problem Assessment: L pleural effusion seen on CXR; Chest US 03/02 with insufficient amount to norris. CXR 03/08 remains stable. Increased O2 needs during PM 03/09. This AM CXR relatively unchanged Plan: Continue diuresis, mobilize, wean O2 Left arm swelling 03/02/2021 03/14/2021 Overview: History: Post op problem Assessment: LUE edematous on exam, non painful. 03/08- swelling continues to improve Plan: DVT US: (+) for basilic vein thrombus. Per ER continue to monitor for now, swelling improving. Hypernatremia 02/26/2021 03/14/2021 Overview: History: Goal per neuro for sodium is 140-145 (avoid hyponatremia) Assessment: Na stabilized, pt diet advanced to dental soft 03/07 Sodium Date Value Ref Range Status 03/10/2021 141 136 - 144 mmol/L Final 03/09/2021 144 136 - 144 mmol/L Final 03/08/2021 145 (H) 136 - 144 mmol/L Final Plan: DC D5W 03/07, continue to monitor Na. Per neuro keep Na 140-145. Status post ascending aortic aneurysm repair 09/202003/07/2021 Overview: Ascending and Hybrid Aortic arch repair with a Frozen elephant trunk and stent to the LSCA (B-SAFER), AVr, CABGx3 (SEBASTIAN-LAD, SVG-seq to Ramus and OM1), LAAC. S/P aortic valve repair 02/22/2021 03/07/20 Overview: Ascending and Hybrid Aortic arch repair with a Frozen elephant trunk and stent to the LSCA (B-SAFER), AVr, CABGx3 (SEBASTIAN-LAD, SVG-seq to Ramus and OM1), LAAC. S/P CABG x 3 02/22/2021 03/07/2021 Overview: Ascending and Hybrid Aortic arch repair with a Frozen elephant trunk and stent to the LSCA (B-SAFER), AVr, CABGx3 (SEBASTIAN-LAD, SVG-seq to Ramus and OM1), LAAC. Obesity, Class I, BMI 30-34.9 02/22/2021 Overview: History: Pre op problem Assessment: Body mass index is 27.73 kg/m . Plan: Encourage lifestyle changes' Preop testing 02/21/2021 04/11/2021 Overview: [facility] PRE-OP CHECKLIST Dr Medley Aneurysm Repair Informed Consent Completed: No STS Score: unsupp REDO:No CAD: Yes - CAD on Problem List: Yes Is intended procedure a CABG: to be determine - is a beta chan ordered? Yes H & P completed: Yes PA/LAT: Completed CT: Completed MRI: N/A LE US: N/A Cath: Yes - reviewed: Yes [facility] EKG: Completed Is patient on Amiodarone? No Echo:pending EF %: PI's: N/A Carotid: Pending Mapping: N/A Dental: Not Cleared will have to be done postop PFT's: N/A Recent Labs 02/20/21 0048 WBC 5.34 HB 8.2* HCT 26.3* PLT 144* INR 1.0 CREAT 2.18* UA: Abnormal HCG:N/A ABO/ABO Confirmed: Yes ABO/RH(D) Date Value Ref Range Status 02/19/2021 A POSITIVE Final Blood ordered: Yes Willing to accept blood: Yes SA Swab: Yes - results: Positive SA/negative MRSA 02/19/2021 Last Dose of Anticoagulation: none Op Note: N/A Pacer Check: NA Implants: no DOMINANT HAND: right-handed Consults: Vasc Surgery DM: No Hemoglobin A1C (%) Date Value 02/19/2021 6.0 Cardiac Surgical prep: Yes SIGNATURE: Ldyia Patel APRN.CNP DATE of SERVICE: 02/20/2021 TIME of SERVICE: 2:57 PM CHECKED BY: RE Need for assessment by dentistry for poor dentit ion 02/21/2021 03/08/2021 Overview: Pt is CICU-- urgent surgery--not able to see dentistry Will need to be evaluate by dentistry postop On mechanically assisted ventilation 02/21/2021 02/25/2021 Overview: History: Postop Assessment: Arrived intubated on mechanical ventilation. Plan: WTE Postoperative hypotension 02/21/20212020 Overview: History: Postop Assessment: arrived on levophed infusion. 02/23/2021 Titrate Levophed infusion for MAPS 70-80. Transfuse albumin. Cardiac insufficiency following cardiac surgery 02/21/2021 02/25/2021 Overview: History: Normal biventricular function pre-op Assessment: arrived on Epinephrine infusion. Plan: Maintain inotropic support for now. Postoperative pain 02/21/2021 05/08/2021 Overview: History: 05/05/2021: TEVAR extension Assessment: Postsurgical pain Plan: Fentanyl [employer], scheduled Tylenol, and PRN oxycodone Coagulopathy 02/21/2021 02/22/2021 Overview: History: coagulopathy in OR Assessment: received 2 PLT intra-op Plan: Repeat coags and replete factors as needed. documented as of this encounter (statuses as of 09/20/2022) [facility]01-24-2022 History of Past illness Narrative* Problem Noted Date Resolved Date Preop testing 04/11/2021 05/08/2021 Overview: [facility] Informed Consent Completed: Yes STS Score: REDO:No CAD: Yes - CAD on Problem List: Yes Is intended procedure a CABG: No - is a beta chan ordered? No - reason: na H & P completed: Yes, will complete PA/LAT: done CT: Completed no fu need per Kandi Booker for thy. MRI: N/A LE US: N/A Cath: Yes - reviewed: Yes EKG: Completed Is patient on Amiodarone? No Echo:Completed EF %: 55 PI's: N/A Carotid: Completed Mapping: N/A Dental: 05/04/[address] [facility] [address] Lu emailed PFT's: N/A UAnormal HCG:N/A ABO/ABO Confirmed:done Blood ordered: Yes TEVAR SA Swab: Yes - results: Pending Last Dose of Anticoagulation: pt states he has not take vit in a while Anticoagulant & Antiplatelet Medications Patient Encounter Information Not Found Op Note: Yes Pacer Check: NA Implants: no Consults: na DM: No Cardiac Surgical prep: admit after spinal drain 05/04/2021 SIGNATURE: Reyna Gaitan RN DATE of SERVICE: 04/11/2021 TIME of SERVICE: 11:06 AM CHECKED BY: Gentry Kirby APRN.ACETYLENE TORCH BURNER Pleural effusion 03/02/2021 03/14/2021 Overview: History: Post op problem Assessment: L pleural effusion seen on CXR; Chest US 03/02 with insufficient amount to norris. CXR 03/08 remains stable. Increased O2 needs during PM 03/09. This AM CXR relatively unchanged Plan: Continue diuresis, mobilize, wean O2 Left arm swelling 03/02/2021 03/14/2021 Overview: History: Post op problem Assessment: LUE edematous on exam, non painful. 03/08- swelling continues to improve Plan: DVT US: (+) for basilic vein thrombus. Per ER continue to monitor for now, swelling improving. Hypernatremia 02/26/2021 03/14/2021 Overview: History: Goal per neuro for sodium is 140-145 (avoid hyponatremia) Assessment: Na stabilized, pt diet advanced to dental soft 03/07 Sodium Date Value Ref Range Status 03/10/2021 141 136 - 144 mmol/L Final 03/09/2021 144 136 - 144 mmol/L Final 03/08/2021 145 (H) 136 - 144 mmol/L Final Plan: DC D5W 03/07, continue to monitor Na. Per neuro keep Na 140-145. Status post ascending aortic aneurysm repair 09/202003/07/2021 Overview: Ascending and Hybrid Aortic arch repair with a Frozen elephant trunk and stent to the LSCA (B-SAFER), AVr, CABGx3 (SEBASTIAN-LAD, SVG-seq to Ramus and OM1), LAAC. S/P aortic valve repair 02/22/2021 03/07/20 Overview: Ascending and Hybrid Aortic arch repair with a Frozen elephant trunk and stent to the LSCA (B-SAFER), AVr, CABGx3 (SEBASTIAN-LAD, SVG-seq to Ramus and OM1), LAAC. S/P CABG x 3 02/22/2021 03/07/2021 Overview: Ascending and Hybrid Aortic arch repair with a Frozen elephant trunk and stent to the LSCA (B-SAFER), AVr, CABGx3 (SEBASTIAN-LAD, SVG-seq to Ramus and OM1), LAAC. Obesity, Class I, BMI 30-34.9 02/22/2021 Overview: History: Pre op problem Assessment: Body mass index is 27.73 kg/m . Plan: Encourage lifestyle changes' Preop testing 02/21/2021 04/11/2021 Overview: [facility] PRE-OP CHECKLIST Dr Medley Aneurysm Repair Informed Consent Completed: No STS Score: unsupp REDO:No CAD: Yes - CAD on Problem List: Yes Is intended procedure a CABG: to be determine - is a beta chan ordered? Yes H & P completed: Yes PA/LAT: Completed CT: Completed MRI: N/A LE US: N/A Cath: Yes - reviewed: Yes [facility] EKG: Completed Is patient on Amiodarone? No Echo:pending EF %: PI's: N/A Carotid: Pending Mapping: N/A Dental: Not Cleared will have to be done postop PFT's: N/A Recent Labs 02/20/21 0048 WBC 5.34 HB 8.2* HCT 26.3* PLT 144* INR 1.0 CREAT 2.18* UA: Abnormal HCG:N/A ABO/ABO Confirmed: Yes ABO/RH(D) Date Value Ref Range Status 02/19/2021 A POSITIVE Final Blood ordered: Yes Willing to accept blood: Yes SA Swab: Yes - results: Positive SA/negative MRSA 02/19/2021 Last Dose of Anticoagulation: none Op Note: N/A Pacer Check: NA Implants: no DOMINANT HAND: right-handed Consults: Vasc Surgery DM: No Hemoglobin A1C (%) Date Value 02/19/2021 6.0 Cardiac Surgical prep: Yes SIGNATURE: Lydia Patel APRN.CNP DATE of SERVICE: 02/20/2021 TIME of SERVICE: 2:57 PM CHECKED BY: RE Need for assessment by dentistry for poor dentit ion 02/21/2021 03/08/2021 Overview: Pt is CICU-- urgent surgery--not able to see dentistry Will need to be evaluate by dentistry postop On mechanically assisted ventilation 02/21/2021 02/25/2021 Overview: History: Postop Assessment: Arrived intubated on mechanical ventilation. Plan: WTE Postoperative hypotension 02/21/20212020 Overview: History: Postop Assessment: arrived on levophed infusion. 02/23/2021 Titrate Levophed infusion for MAPS 70-80. Transfuse albumin. Cardiac insufficiency following cardiac surgery 02/21/2021 02/25/2021 Overview: History: Normal biventricular function pre-op Assessment: arrived on Epinephrine infusion. Plan: Maintain inotropic support for now. Postoperative pain 02/21/2021 05/08/2021 Overview: History: 05/05/2021: TEVAR extension Assessment: Postsurgical pain Plan: Fentanyl [employer], scheduled Tylenol, and PRN oxycodone Coagulopathy 02/21/2021 02/22/2021 Overview: History: coagulopathy in OR Assessment: received 2 PLT intra-op Plan: Repeat coags and replete factors as needed. documented as of this encounter (statuses as of 09/21/2022) [facility]01-24-2022 History of Past illness Narrative* Problem Noted Date Resolved Date Preop testing 04/11/2021 05/08/2021 Overview: [facility] PRE[facility]OP CHECKLIST Informed Consent Completed: Yes STS Score: REDO:No CAD: Yes - CAD on Problem List: Yes Is intended procedure a CABG: No - is a beta chan ordered? No - reason: na H & P completed: Yes, will complete PA/LAT: done CT: Completed no fu need per Kandi Booker for thy. MRI: N/A LE US: N/A Cath: Yes - reviewed: Yes EKG: Completed Is patient on Amiodarone? No Echo:Completed EF %: 55 PI's: N/A Carotid: Completed Mapping: N/A Dental: 05/04/[address] [facility] [address] Lu emailed PFT's: N/A UAnormal HCG:N/A ABO/ABO Confirmed:done Blood ordered: Yes TEVAR SA Swab: Yes - results: Pending Last Dose of Anticoagulation: pt states he has not take vit in a while Anticoagulant & Antiplatelet Medications Patient Encounter Information Not Found Op Note: Yes Pacer Check: NA Implants: no Consults: na DM: No Cardiac Surgical prep: admit after spinal drain 05/04/2021 SIGNATURE: Reyna Gaitan RN DATE of SERVICE: 04/11/2021 TIME of SERVICE: 11:06 AM CHECKED BY: Gentry Kirby APRN.ACETYLENE TORCH BURNER Pleural effusion 03/02/2021 03/14/2021 Overview: History: Post op problem Assessment: L pleural effusion seen on CXR; Chest US 03/02 with insufficient amount to norris. CXR 03/08 remains stable. Increased O2 needs during PM 03/09. This AM CXR relatively unchanged Plan: Continue diuresis, mobilize, wean O2 Left arm swelling 03/02/2021 03/14/2021 Overview: History: Post op problem Assessment: LUE edematous on exam, non painful. 03/08- swelling continues to improve Plan: DVT US: (+) for basilic vein thrombus. Per ER continue to monitor for now, swelling improving. Hypernatremia 02/26/2021 03/14/2021 Overview: History: Goal per neuro for sodium is 140-145 (avoid hyponatremia) Assessment: Na stabilized, pt diet advanced to dental soft 03/07 Sodium Date Value Ref Range Status 03/10/2021 141 136 - 144 mmol/L Final 03/09/2021 144 136 - 144 mmol/L Final 03/08/2021 145 (H) 136 - 144 mmol/L Final Plan: DC D5W 03/07, continue to monitor Na. Per neuro keep Na 140-145. Status post ascending aortic aneurysm repair 09/202003/07/2021 Overview: Ascending and Hybrid Aortic arch repair with a Frozen elephant trunk and stent to the LSCA (B-SAFER), AVr, CABGx3 (SEBASTIAN-LAD, SVG-seq to Ramus and OM1), LAAC. S/P aortic valve repair 02/22/2021 03/07/20 21 Overview: Ascending and Hybrid Aortic arch repair with a Frozen elephant trunk and stent to the LSCA (B-SAFER), AVr, CABGx3 (SEBASTIAN-LAD, SVG-seq to Ramus and OM1), LAAC. S/P CABG x 3 02/22/2021 03/07/2021 Overview: Ascending and Hybrid Aortic arch repair with a Frozen elephant trunk and stent to the LSCA (B-SAFER), AVr, CABGx3 (SEBASTIAN-LAD, SVG-seq to Ramus and OM1), LAAC. Obesity, Class I, BMI 30-34.9 02/22/2021 Overview: History: Pre op problem Assessment: Body mass index is 27.73 kg/m . Plan: Encourage lifestyle changes' Preop testing 02/21/2021 04/11/2021 Overview: [facility] PRE-OP CHECKLIST Dr Medley Aneurysm Repair Informed Consent Completed: No STS Score: unsupp REDO:No CAD: Yes - CAD on Problem List: Yes Is intended procedure a CABG: to be determine - is a beta chan ordered? Yes H & P completed: Yes PA/LAT: Completed CT: Completed MRI: N/A LE US: N/A Cath: Yes - reviewed: Yes [facility] EKG: Completed Is patient on Amiodarone? No Echo:pending EF %: PI's: N/A Carotid: Pending Mapping: N/A Dental: Not Cleared will have to be done postop PFT's: N/A Recent Labs 02/20/21 0048 WBC 5.34 HB 8.2* HCT 26.3* PLT 144* INR 1.0 CREAT 2.18* UA: Abnormal HCG:N/A ABO/ABO Confirmed: Yes ABO/RH(D) Date Value Ref Range Status 02/19/2021 A POSITIVE Final Blood ordered: Yes Willing to accept blood: Yes SA Swab: Yes - results: Positive SA/negative MRSA 02/19/2021 Last Dose of Anticoagulation: none Op Note: N/A Pacer Check: NA Implants: no DOMINANT HAND: right-handed Consults: Vasc Surgery DM: No Hemoglobin A1C (%) Date Value 02/19/2021 6.0 Cardiac Surgical prep: Yes SIGNATURE: Lydia Patel APRN.CNP DATE of SERVICE: 02/20/2021 TIME of SERVICE: 2:57 PM CHECKED BY: RE Need for assessment by dentistry for poor dentit ion 02/21/2021 03/08/2021 Overview: Pt is CICU-- urgent surgery--not able to see dentistry Will need to be evaluate by dentistry postop On mechanically assisted ventilation 02/21/2021 02/25/2021 Overview: History: Postop Assessment: Arrived intubated on mechanical ventilation. Plan: WTE Postoperative hypotension 02/21/20212020 Overview: History: Postop Assessment: arrived on levophed infusion. 02/23/2021 Titrate Levophed infusion for MAPS 70-80. Transfuse albumin. Cardiac insufficiency following cardiac surgery 02/21/2021 02/25/2021 Overview: History: Normal biventricular function pre-op Assessment: arrived on Epinephrine infusion. Plan: Maintain inotropic support for now. Postoperative pain 02/21/2021 05/08/2021 Overview: History: 05/05/2021: TEVAR extension Assessment: Postsurgical pain Plan: Fentanyl [employer], scheduled Tylenol, and PRN oxycodone Coagulopathy 02/21/2021 02/22/2021 Overview: History: coagulopathy in OR Assessment: received 2 PLT intra-op Plan: Repeat coags and replete factors as needed. documented as of this encounter (statuses as of 09/21/2022) [facility]01-24-2022 History of Past illness Narrative* Problem Noted Date Diagnosed Date Resolved Date Preop testing 04/11/2021 05/08/2021 Overview: [facility] PRE-OP CHECKLIST Informed Consent Completed: Yes STS Score: REDO:No CAD: Yes - CAD on Problem List: Yes Is intended procedure a CABG: No - is a beta chan ordered? No - reason: na H & P completed: Yes, will complete PA/LAT: done CT: Completed no fu need per Kandi Booker for thy. MRI: N/A LE US: N/A Cath: Yes - reviewed: Yes EKG: Completed Is patient on Amiodarone? No Echo:Completed EF %: 55 PI's: N/A Carotid: Completed Mapping: N/A Dental: 05/04/[address] [facility] [address] Lu emailed PFT's: N/A UAnormal HCG:N/A ABO/ABO Confirmed:done Blood ordered: Yes TEVAR SA Swab: Yes - results: Pending Last Dose of Anticoagulation: pt states he has not take vit in a while Anticoagulant & Antiplatelet Medications Patient Encounter Information Not Found Op Note: Yes Pacer Check: NA Implants: no Consults: na DM: No Cardiac Surgical prep: admit after spinal drain 05/04/2021 SIGNATURE: Reyna Gaitan RN DATE of SERVICE: 04/11/2021 TIME of SERVICE: 11:06 AM CHECKED BY: Gentry Kirby APRN.ACETYLENE TORCH BURNER Pleural effusion 03/02/2021 03/14/2021 Overview: History: Post op problem Assessment: L pleural effusion seen on CXR; Chest US 03/02 with insufficient amount to norris. CXR 03/08 remains stable. Increased O2 needs during PM 03/09. This AM CXR relatively unchanged Plan: Continue diuresis, mobilize, wean O2 Left arm swelling 03/02/2021 03/14/2021 Overview: History: Post op problem Assessment: LUE edematous on exam, non painful. 03/08- swelling continues to improve Plan: DVT US: (+) for basilic vein thrombus. Per ER continue to monitor for now, swelling improving. Hypernatremia 02/26/2021 03/14/2021 Overview: History: Goal per neuro for sodium is 140-145 (avoid hyponatremia) Assessment: Na stabilized, pt diet advanced to dental soft 03/07 Sodium Date Value Ref Range Status 03/10/2021 141 136 - 144 mmol/L Final 03/09/2021 144 136 - 144 mmol/L Final 03/08/2021 145 (H) 136 - 144 mmol/L Final Plan: DC D5W 03/07, continue to monitor Na. Per neuro keep Na 140-145. Status post ascending aortic aneurysm repair 03/07/2021 Overview: Ascending and Hybrid Aortic arch repair with a Frozen elephant trunk and stent to the LSCA (B-SAFER), AVr, CABGx3 (SEBASTIAN-LAD, SVG-seq to Ramus and OM1), LAAC. S/P aortic valve repair 02/22/202102/17 Overview: Ascending and Hybrid Aortic arch repair with a Frozen elephant trunk and stent to the LSCA (B-SAFER), AVr, CABGx3 (SEBASTIAN-LAD, SVG-seq to Ramus and OM1), LAAC. S/P CABG x 3 02/22/2021 03/07/2021 Overview: Ascending and Hybrid Aortic arch repair with a Frozen elephant trunk and stent to the LSCA (B-SAFER), AVr, CABGx3 (SEBASTIAN-LAD, SVG-seq to Ramus and OM1), LAAC. Obesity, Class I, BMI 30-34.9 02/22/2021 03/07/2021 Overview: History: Pre op problem Assessment: Body mass index is 27.73 kg/m . Plan: Encourage lifestyle changes' Preop testing 02/21/2021 04/11/2021 Overview: [facility] PRE-OP CHECKLIST Dr Medley Aneurysm Repair Informed Consent Completed: No STS Score: unsupp REDO:No CAD: Yes - CAD on Problem List: Yes Is intended procedure a CABG: to be determine - is a beta chan ordered? Yes H & P completed: Yes PA/LAT: Completed CT: Completed MRI: N/A LE US: N/A Cath: Yes - reviewed: Yes [facility] EKG: Completed Is patient on Amiodarone? No Echo:pending EF %: PI's: N/A Carotid: Pending Mapping: N/A Dental: Not Cleared will have to be done postop PFT's: N/A Recent Labs 02/20/21 0048 WBC 5.34 HB 8.2* HCT 26.3* PLT 144* INR 1.0 CREAT 2.18* UA: Abnormal HCG:N/A ABO/ABO Confirmed: Yes ABO/RH(D) Date Value Ref Range Status 02/19/2021 A POSITIVE Final Blood ordered: Yes Willing to accept blood: Yes SA Swab: Yes - results: Positive SA/negative MRSA 02/19/2021 Last Dose of Anticoagulation: none Op Note: N/A Pacer Check: NA Implants: no DOMINANT HAND: right-handed Consults: Vasc Surgery DM: No Hemoglobin A1C (%) Date Value 02/19/2021 6.0 Cardiac Surgical prep: Yes SIGNATURE: Lydia Patel APRN.CNP DATE of SERVICE: 02/20/2021 TIME of SERVICE: 2:57 PM CHECKED BY: RE Need for assessment by denti stry for poor dentition 02/21/2021 03/08/2021 Overview: Pt is CICU-- urgent surgery--not able to see dentistry Will need to be evaluate by dentistry postop On mechanically assisted ventilation 02/21/2021 02/25/2021 Overview: History: Postop Assessment: Arrived intubated on mechanical ventilation. Plan: WTE Postoperative hypotension 02/21/2021 Overview: History: Postop Assessment: arrived on levophed infusion. 02/23/2021 Titrate Levophed infusion for MAPS 70-80. Transfuse albumin. Cardiac insufficiency follow ing cardiac surgery 02/21/2021 02/25/2021 Overview: History: Normal biventricular function pre-op Assessment: arrived on Epinephrine infusion. Plan: Maintain inotropic support for now. Postoperative pain 02/21/2021 2 Overview: History: 05/05/2021: TEVAR extension Assessment: Postsurgical pain Plan: Fentanyl [employer], scheduled Tylenol, and PRN oxycodone Coagulopathy 02/21/2021 02/22/2021 Overview: History: coagulopathy in OR Assessment: received 2 PLT intra-op Plan: Repeat coags and replete factors as needed. documented as of this encounter (statuses as of 10/25/2022) [facility]01-[facility] History of Past illness Narrative* Problem Noted Date Diagnosed Date Resolved Date Preop testing 04/11/2021 05/08/2021 Overview: [facility] PRE-OP CHECKLIST Informed Consent Completed: Yes STS Score: REDO:No CAD: Yes - CAD on Problem List: Yes Is intended procedure a CABG: No - is a beta chan ordered? No - reason: na H & P completed: Yes, will complete PA/LAT: done CT: Completed no fu need per Kandi Booker for thy. MRI: N/A LE US: N/A Cath: Yes - reviewed: Yes EKG: Completed Is patient on Amiodarone? No Echo:Completed EF %: 55 PI's: N/A Carotid: Completed Mapping: N/A Dental: 05/04/[address] [facility] [address] Lu emailed PFT's: N/A UAnormal HCG:N/A ABO/ABO Confirmed:done Blood ordered: Yes TEVAR SA Swab: Yes - results: Pending Last Dose of Anticoagulation: pt states he has not take vit in a while Anticoagulant & Antiplatelet Medications Patient Encounter Information Not Found Op Note: Yes Pacer Check: NA Implants: no Consults: na DM: No Cardiac Surgical prep: admit after spinal drain 05/04/2021 SIGNATURE: Reyna Gaitan RN DATE of SERVICE: 04/11/2021 TIME of SERVICE: 11:06 AM CHECKED BY: Gentry Kirby APRN.ACETYLENE TORCH BURNER Pleural effusion 03/02/2021 03/14/2021 Overview: History: Post op problem Assessment: L pleural effusion seen on CXR; Chest US 03/02 with insufficient amount to norris. CXR 03/08 remains stable. Increased O2 needs during PM 03/09. This AM CXR relatively unchanged Plan: Continue diuresis, mobilize, wean O2 Left arm swelling 03/02/2021 03/14/2021 Overview: History: Post op problem Assessment: LUE edematous on exam, non painful. 03/08- swelling continues to improve Plan: DVT US: (+) for basilic vein thrombus. Per ER continue to monitor for now, swelling improving. Hypernatremia 02/26/2021 03/14/2021 Overview: History: Goal per neuro for sodium is 140-145 (avoid hyponatremia) Assessment: Na stabilized, pt diet advanced to dental soft 03/07 Sodium Date Value Ref Range Status 03/10/2021 141 136 - 144 mmol/L Final 03/09/2021 144 136 - 144 mmol/L Final 03/08/2021 145 (H) 136 - 144 mmol/L Final Plan: DC D5W 03/07, continue to monitor Na. Per neuro keep Na 140-145. Status post ascending aortic aneurysm repair 03/07/2021 Overview: Ascending and Hybrid Aortic arch repair with a Frozen elephant trunk and stent to the LSCA (B-SAFER), AVr, CABGx3 (SEBASTIAN-LAD, SVG-seq to Ramus and OM1), LAAC. S/P aortic valve repair 02/22/202102/17 Overview: Ascending and Hybrid Aortic arch repair with a Frozen elephant trunk and stent to the LSCA (B-SAFER), AVr, CABGx3 (SEBASTIAN-LAD, SVG-seq to Ramus and OM1), LAAC. S/P CABG x 3 02/22/2021 03/07/2021 Overview: Ascending and Hybrid Aortic arch repair with a Frozen elephant trunk and stent to the LSCA (B-SAFER), AVr, CABGx3 (SEBASTIAN-LAD, SVG-seq to Ramus and OM1), LAAC. Obesity, Class I, BMI 30-34.9 02/22/2021 03/07/2021 Overview: History: Pre op problem Assessment: Body mass index is 27.73 kg/m . Plan: Encourage lifestyle changes' Preop testing 02/21/2021 04/11/2021 Overview: [facility] PRE-OP CHECKLIST Dr Medley Aneurysm Repair Informed Consent Completed: No STS Score: unsupp REDO:No CAD: Yes - CAD on Problem List: Yes Is intended procedure a CABG: to be determine - is a beta chan ordered? Yes H & P completed: Yes PA/LAT: Completed CT: Completed MRI: N/A LE US: N/A Cath: Yes - reviewed: Yes [facility] EKG: Completed Is patient on Amiodarone? No Echo:pending EF %: PI's: N/A Carotid: Pending Mapping: N/A Dental: Not Cleared will have to be done postop PFT's: N/A Recent Labs 02/20/21 0048 WBC 5.34 HB 8.2* HCT 26.3* PLT 144* INR 1.0 CREAT 2.18* UA: Abnormal HCG:N/A ABO/ABO Confirmed: Yes ABO/RH(D) Date Value Ref Range Status 02/19/2021 A POSITIVE Final Blood ordered: Yes Willing to accept blood: Yes SA Swab: Yes - results: Positive SA/negative MRSA 02/19/2021 Last Dose of Anticoagulation: none Op Note: N/A Pacer Check: NA Implants: no DOMINANT HAND: right-handed Consults: Vasc Surgery DM: No Hemoglobin A1C (%) Date Value 02/19/2021 6.0 Cardiac Surgical prep: Yes SIGNATURE: Lydia Patel APRN.CNP DATE of SERVICE: 02/20/2021 TIME of SERVICE: 2:57 PM CHECKED BY: RE Need for assessment by denti stry for poor dentition 02/21/2021 03/08/2021 Overview: Pt is CICU-- urgent surgery--not able to see dentistry Will need to be evaluate by dentistry postop On mechanically assisted ventilation 02/21/2021 02/25/2021 Overview: History: Postop Assessment: Arrived intubated on mechanical ventilation. Plan: WTE Postoperative hypotension 02/21/2021 Overview: History: Postop Assessment: arrived on levophed infusion. 02/23/2021 Titrate Levophed infusion for MAPS 70-80. Transfuse albumin. Cardiac insufficiency follow ing cardiac surgery 02/21/2021 02/25/2021 Overview: History: Normal biventricular function pre-op Assessment: arrived on Epinephrine infusion. Plan: Maintain inotropic support for now. Postoperative pain 02/21/2021 Overview: History: 05/05/2021: TEVAR extension Assessment: Postsurgical pain Plan: Fentanyl [employer], scheduled Tylenol, and PRN oxycodone Coagulopathy 02/21/2021 02/22/2021 Overview: History: coagulopathy in OR Assessment: received 2 PLT intra-op Plan: Repeat coags and replete factors as needed. documented as of this encounter (statuses as of 10/27/2022) [facility]01-24-[facility] History of Past illness Narrative* Problem Noted Date Diagnosed Date Resolved Date Preop testing 04/11/2021 05/08/2021 Overview: [facility] PRE-OP CHECKLIST Informed Consent Completed: Yes STS Score: REDO:No CAD: Yes - CAD on Problem List: Yes Is intended procedure a CABG: No - is a beta chan ordered? No - reason: na H & P completed: Yes, will complete PA/LAT: done CT: Completed no fu need per Kandi Booker for thy. MRI: N/A BERONICA US: N/A Cath: Yes - reviewed: Yes EKG: Completed Is patient on Amiodarone? No Echo:Completed EF %: 55 PI's: N/A Carotid: Completed Mapping: N/A Dental: 05/04/[address] [facility] [address] Lu emailed PFT's: N/A UAnormal HCG:N/A ABO/ABO Confirmed:done Blood ordered: Yes TEVAR SA Swab: Yes - results: Pending Last Dose of Anticoagulation: pt states he has not take vit in a while Anticoagulant & Antiplatelet Medications Patient Encounter Information Not Found Op Note: Yes Pacer Check: NA Implants: no Consults: na DM: No Cardiac Surgical prep: admit after spinal drain 05/04/2021 SIGNATURE: Reyna Gaitan RN DATE of SERVICE: 04/11/2021 TIME of SERVICE: 11:06 AM CHECKED BY: Gentry Kirby APRN.ACETYLENE TORCH BURNER Pleural effusion 03/02/2021 03/14/2021 Overview: History: Post op problem Assessment: L pleural effusion seen on CXR; Chest US 03/02 with insufficient amount to norris. CXR 03/08 remains stable. Increased O2 needs during PM 03/09. This AM CXR relatively unchanged Plan: Continue diuresis, mobilize, wean O2 Left arm swelling 03/02/2021 03/14/2021 Overview: History: Post op problem Assessment: LUE edematous on exam, non painful. 03/08- swelling continues to improve Plan: DVT US: (+) for basilic vein thrombus. Per ER continue to monitor for now, swelling improving. Hypernatremia 02/26/2021 03/14/2021 Overview: History: Goal per neuro for sodium is 140-145 (avoid hyponatremia) Assessment: Na stabilized, pt diet advanced to dental soft 03/07 Sodium Date Value Ref Range Status 03/10/2021 141 136 - 144 mmol/L Final 03/09/2021 144 136 - 144 mmol/L Final 03/08/2021 145 (H) 136 - 144 mmol/L Final Plan: DC D5W 03/07, continue to monitor Na. Per neuro keep Na 140-145. Status post ascending aortic aneurysm repair 1 03/07/2021 Overview: Ascending and Hybrid Aortic arch repair with a Frozen elephant trunk and stent to the LSCA (B-SAFER), AVr, CABGx3 (SEBASTIAN-LAD, SVG-seq to Ramus and OM1), LAAC. S/P aortic valve repair 02/22/202102/17 Overview: Ascending and Hybrid Aortic arch repair with a Frozen elephant trunk and stent to the LSCA (B-SAFER), AVr, CABGx3 (SEBASTIAN-LAD, SVG-seq to Ramus and OM1), LAAC. S/P CABG x 3 02/22/2021 03/07/2021 Overview: Ascending and Hybrid Aortic arch repair with a Frozen elephant trunk and stent to the LSCA (B-SAFER), AVr, CABGx3 (SEBASTIAN-LAD, SVG-seq to Ramus and OM1), LAAC. Obesity, Class I, BMI 30-34.9 02/22/2021 03/07/2021 Overview: History: Pre op problem Assessment: Body mass index is 27.73 kg/m . Plan: Encourage lifestyle changes' Preop testing 02/21/2021 04/11/2021 Overview[facility] PRE-OP CHECKLIST Dr Medley Aneurysm Repair Informed Consent Completed: No STS Score: unsupp REDO:No CAD: Yes - CAD on Problem List: Yes Is intended procedure a CABG: to be determine - is a beta chan ordered? Yes H & P completed: Yes PA/LAT: Completed CT: Completed MRI: N/A LE US: N/A Cath: Yes - reviewed: Yes [facility] EKG: Completed Is patient on Amiodarone? No Echo:pending EF %: PI's: N/A Carotid: Pending Mapping: N/A Dental: Not Cleared will have to be done postop PFT's: N/A Recent Labs 02/20/21 0048 WBC 5.34 HB 8.2* HCT 26.3* PLT 144* INR 1.0 CREAT 2.18* UA: Abnormal HCG:N/A ABO/ABO Confirmed: Yes ABO/RH(D) Date Value Ref Range Status 02/19/2021 A POSITIVE Final Blood ordered: Yes Willing to accept blood: Yes SA Swab: Yes - results: Positive SA/negative MRSA 02/19/2021 Last Dose of Anticoagulation: none Op Note: N/A Pacer Check: NA Implants: no DOMINANT HAND: right-handed Consults: Vasc Surgery DM: No Hemoglobin A1C (%) Date Value 02/19/2021 6.0 Cardiac Surgical prep: Yes SIGNATURE: Lydia Patel APRN.CNP DATE of SERVICE: 02/20/2021 TIME of SERVICE: 2:57 PM CHECKED BY: RE Need for assessment by denti stry for poor dentition 02/21/2021 03/08/2021 Overview: Pt is CICU-- urgent surgery--not able to see dentistry Will need to be evaluate by dentistry postop On mechanically assisted ventilation 02/21/2021 02/25/2021 Overview: History: Postop Assessment: Arrived intubated on mechanical ventilation. Plan: WTE Postoperative hypotension 02/21/2021 Overview: History: Postop Assessment: arrived on levophed infusion. 02/23/2021 Titrate Levophed infusion for MAPS 70-80. Transfuse albumin. Cardiac insufficiency follow ing cardiac surgery 02/21/2021 02/25/2021 Overview: History: Normal biventricular function pre-op Assessment: arrived on Epinephrine infusion. Plan: Maintain inotropic support for now. Postoperative pain 02/21/2021 Overview: History: 05/05/2021: TEVAR extension Assessment: Postsurgical pain Plan: Fentanyl [employer], scheduled Tylenol, and PRN oxycodone Coagulopathy 02/21/2021 02/22/2021 Overview: History: coagulopathy in OR Assessment: received 2 PLT intra-op Plan: Repeat coags and replete factors as needed. documented as of this encounter (statuses as of 11/16/2022) [facility] Appointment Date:04/13/2021 10:30:00 AM Scheduled Provider:KELLEY BOURGEOIS MD Location:HEM ONC Appointment Type:HEM ONC OV Follow Up w/Active Treatment Appointment Date:04/13/2021 11:00:00 AM Scheduled Provider: Location:INF Appointment Type:INF Chemo Future Scheduled Tests Laboratory* Complete Blood Count 04/13/21 * Complete Metabolic Panel 04/13/21 [facility] evaluation + Plan note Future Appointments Appointment Date:09/09/2021 08:00:00 AM Scheduled Provider:KELLEY BOURGEOIS MD Location:HEM ONC Appointment Type:HEM ONC OV Follow Up w/Active Treatment Appointment Date:09/09/2021 08:30:00 AM Scheduled Provider: Location:INF Appointment Type:INF Chemo: Infusion 120 min (2 hours) Future Scheduled Tests Laboratory* Complete Blood Count 09/09/21 * Complete Metabolic Panel 09/09/21 [facility] evaluation + Plan note Future Appointments Appointment Date:12/30/2021 11:30:00 AM Scheduled Provider:CINDY RAMIREZ Location:HEM ONC Appointment Type:HEM ONC OV Follow Up Future Scheduled Tests Laboratory* Complete Blood Count 12/31/21 * Complete Metabolic Panel 12/31/21 Radiology* PET/CT Restaging Tumor Skull Base to Mid-Thigh 10/31/21 [facility] evaluation + Plan note Future Appointments Appointment Date:03/31/2022 02:30:00 PM Scheduled Provider:CINDY RAMIREZ Location:HEM ONC Appointment Type:HEM ONC OV Follow Up Future Scheduled Tests Laboratory* Lactate Dehydrogenase 04/01/22 * Complete Blood Count 04/01/22 * Complete Metabolic Panel 04/01/22 Radiology* PET/CT Restaging Tumor Skull Base to Mid-Thigh 10/31/21 [facility] evaluation + Plan note Future Appointments Appointment Date:09/27/2022 11:30:00 AM Scheduled Provider: Location:HEM ONC Appointment Type:HEM ONC OV Follow Up Appointment Date:01/08/2023 01:30:00 PM Scheduled Provider:JANAE JARA MD Location:UROLOGY Appointment Type:URO OV Future Scheduled Tests Laboratory* Creatinine 12/06/22 * Lactate Dehydrogenase 07/02/22 * Lactate Dehydrogenase 04/01/22 * Lactate Dehydrogenase 10/02/22 * Beta 2 Microglobulin 10/02/22 * Complete Blood Count 07/02/22 * Complete Blood Count 04/01/22 * Complete Blood Count 10/02/22 * Complete Metabolic Panel 07/02/22 * Complete Metabolic Panel 04/01/22 * Complete Metabolic Panel 10/02/22 Radiology* CT Thorax w/ Contrast 06/01/22 * CT Abdomen and Pelvis w/ contrast 06/01/22 * CT Renal 12/06/22 [facility] Evaluation note* Diagnosis Thoracic aortic aneurysm without rupture (HCC) Thoracic aneurysm without mention of rupture Examination of participant in clinical trial [facility] Diagnosis Descending thoracic aortic aneurysm (HCC)- Primary Thoracic aneurysm without mention of rupture Coronary artery disease involving [place] coronary artery of [place] heart without angina pectoris 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) Abdominal aortic aneurysm (AAA) without rupture (HCC) Stage 3 chronic kidney disease, unspecified whether stage 3a or 3b CKD (HCC) PAF (paroxysmal atrial fibrillation) (HCC) Atrial fibrillation [facility] Coronary artery disease involving [place] coronary artery of [place] heart without angina pectoris- Primary 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) Aortic valve insufficiency, etiology of cardiac valve disease unspecified [facility] Diagnosis Thoracic aortic aneurysm without rupture (HCC)- Primary Thoracic aneurysm without mention of rupture [facility] 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 Other diseases of vocal cords Other secondary kyphosis, cervical region [facility] 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 Other diseases of vocal cords [facility]* 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 Other diseases of vocal cords Other secondary kyphosis, cervical region Non-allergic rhinitis Chronic rhinitis [facility]* Diagnosis Thoracoabdominal aortic aneurysm (TAAA) without rupture, unspecified part- Primary Abdominal aortic aneurysm (AAA) without rupture, unspecified part Examination of participant in clinical trial [facility]* Diagnosis Research subject- Primary documented in this encounter [facility] note* Diagnosis Aneurysm of ascending aorta without rupture (HCC)- Primary documented in this encounter [facility] note* Diagnosis Hypertension, unspecified type- Primary Hyperlipidemia, unspecified hyperlipidemia type documented in this encounter [facility] note* Diagnosis Ascending aortic aneurysm, unspecified whether ruptured (HCC)- Primary PAF (paroxysmal atrial fibrillation) (HCC) Atrial fibrillation PVC (premature ventricular contraction) Other premature beats Encounter for screening for cardiovascular disorders Screening for other and unspecified cardiovascular conditions Ischemic cardiomyopathy Other specified forms of chronic ischemic heart disease Acute on chronic diastolic congestive heart failure (HCC) Acute on chronic diastolic heart failure documented in this encounter [facility] note* Diagnosis Palpitations- Primary documented in this encounter [facility] note* Diagnosis Hypertension, unspecified type- Primary Hyperlipidemia, unspecified hyperlipidemia type documented in this encounter [facility] note* Diagnosis Thoracoabdominal aortic aneurysm (TAAA) without rupture, unspecified part (HCC)- Primary Abdominal aortic aneurysm (AAA) without rupture, unspecified part (HCC) Examination of participant in clinical trial documented in this encounter [facility] course Narrative No data available for this section [facility] Hospital Discharge instructions No data available for this section [facility] Progress note No data available for this section [facility] Reason for referral (narrative)* Diagnostic Procedure Only (Routine) - Closed Specialty Diagnoses / Procedures Referred By Contac t Referred To Contact CT IMAGING Diagnoses Thoracic aortic aneurysm without rupture (HCC) Examination of participant in clinical trial Procedures CTA ABD/PEL WO/W IVCON CT ANGIO ABD&PLVIS CNTRST MTRL W/WO CNTRST Rosetta Cano MD [address] [place] [address] Ct Imaging Referral ID Status Reason Start Date Expiration Date V isits Requested Visits Authorized [id number] Closed Patient Cleared - [facility] 04/11/2021 03/18/2022 1 1 * MRI/CT (Routine) - Closed Specialty Diagnoses / Procedures Referred By Puneetac t Referred To Contact CT IMAGING Diagnoses Thoracic aortic aneurysm without rupture (HCC) Examination of participant in clinical trial Procedures CTA CHEST (NONGATED) WO/W IVCON CTA CHEST, W/WO CONTRAST CT ANGIO ABD&PLVIS CNTRST MTRL W/WO CNTRST Rosetta Cano MD [id number] Imaging Referral ID Status Reason Start Date Expiration Date V isits Requested Visits Authorized [id number] Closed Auto-Generate d Referral 06/24/2021 03/27/2022 1 1 [facility] for referral (narrative)* Outpatient Procedure (Routine) - Pending Review Specialty Diagnoses / Procedures Referred By Puneetac t Referred To Contact [facility] [place] Diagnoses Coronary artery disease involving [place] coronary artery of [place] heart without angina pectoris 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erred To Contact [facility] Diagnoses Thoracoabdominal aortic aneurysm (TAAA) without rupture, unspecified part Examination of participant in clinical trial Procedures ECHO ECHO TTHRC R-T 2D W/WOM-MODE COMPL SPEC&COLR D Rosetta Lu MD [address] [address] [facility] V[facility] [address] [address] Referral ID Status Reason Start Date Expiration Date Visits Requested Visits Authorized [id number] Pending Review Auto-Generat ed Referral 05/12/2022 02/08/2023 1 1 * MRI/CT (Routine) - Pending Review Specialty Diagnoses / Procedures Referred By Contac t Referred To Contact CT IMAGING Diagnoses Abdominal aortic aneurysm (AAA) without rupture, unspecified part Thoracoabdominal aortic aneurysm (TAAA) without rupture, unspecified part Examination of participant in clinical trial Procedures CTA ABD/PEL WO/W IVCON CT ANGIO ABD&PLVIS CNTRST MTRL W/WO CNTRST Rosetta Cano MD [address] [place] [address] Ct Imaging Referral ID Status Reason Start Date Expiration Date Visits Requested Visits Authorized [id number] Pending Review Auto-Generat ed Referral 05/12/2022 03/10/2023 1 1 * MRI/CT (Routine) - Pending Review Specialty Diagnoses / Procedures Referred By Contac t Referred To Contact CT IMAGING Diagnoses Thoracoabdominal aortic aneurysm (TAAA) without rupture, unspecified part Examination of participant in clinical trial Procedures CTA CHEST (NONGATED) WO/W IVCON CT ANGIOGRAPHY CHEST W/CONTRAST/NONCONTRAST Rosetta Lu MD [address] [place] [address] Ct Imaging Referral ID Status Reason Start Date Expiration Date Visits Requested Visits Authorized [id number] Pending Review Auto-Generat ed Referral 05/12/2022 03/10/2023 1 1 [facility] for referral (narrative)* Outpatient Procedure (Routine) - Pending Review Specialty Diagnoses / Procedures Referred By Contac t Referred To [facility] Diagnoses Hypertension, unspecified type Hyperlipidemia, unspecified hyperlipidemia type Procedures ECG COMPLETE ECG ROUTINE ECG W/LEAST 12 LDS W/I&R Jonel Cleary MD [address] [address] [facility] [place] [address] [place] [address] Referral ID Status Reason Start Date Expiration Date Visits Requested Visits Authorized [id number] Pending Review Auto-Generat ed Referral 07/26/2022 07/26/2023 1 1 [facility] for referral (narrative)* Diagnostic Procedure Only (Routine) - Pending Review Specialty Diagnoses / Procedures Referred By Mitra katz Referred To Contact [facility] Diagnoses Ischemic cardiomyopathy Procedures NM PET/CT CARDIAC VIABILITY MYOCRD IMG PET PRFUJ W/METAB 2RTRACER CNCRNT CT Jonel Cleary MD [address] [place] [address] [facility] [address] [place] [address] Referral ID Status Reason Start Date Expiration Date Visits Requested Visits Authorized [id number] Pending Review Auto-Generat ed Referral 09/20/2022 10/20/2023 1 1 * Diagnostic Procedure Only (Routine) - Pending Review Specialty Diagnoses / Procedures Referred By Mitra katz Referred To Contact [facility] Diagnoses Encounter for screening for cardiovascular disorders Procedures NM PET/CT CARDIAC PERF REST/STRESS MYOCRD IMG PET PRFUJ AUTOMOTIVE FUEL SYSTEMS CONVERTER STD RST & STRS CNCRNT CT Jonel Cleary MD [address] [place], [place] [id number] [facility] [address] [place] [address] Referral ID Status Reason Start Date Expiration Date Visits Requested Visits Authorized [id number] Pending Review Auto-Generat ed Referral 09/20/2022 10/20/2023 1 1 [facility] for referral (narrative)* Outpatient Procedure (Routine) - Pending Review Specialty Diagnoses / Procedures [facility] Referred To Contact [facility] Diagnoses Palpitations Procedures ECG COMPLETE ECG ROUTINE ECG W/LEAST 12 LDS W/I&R Jonel Cleary MD [address] [place] [address] [place] [address] Referral ID Status Reason Start Date Expiration Date Visits Requested Visits Authorized [id number] Pending Review Auto-Generat ed Referral 09/21/2022 09/21/2023 1 1 [facility] for referral (narrative)* Outpatient Procedure (Routine) - Pending Review Specialty Diagnoses / Procedures [facility] Referred To Contact [facility] Diagnoses Thoracoabdominal aortic aneurysm (TAAA) without rupture, unspecified part (HCC) Examination of participant in clinical trial Procedures ECHO ECHO TTHRC R-T 2D W/WOM-MODE COMPL SPEC&COLR D Michael, Rosetta Hdz MD [address] [place] [address] [place] [address] Referral ID Status Reason Start Date Expiration Date Visits Requested Visits Authorized [id number] Pending Review Auto-Generat ed Referral 03/30/2023 11/06/2023 1 1 * MRI/CT (Routine) - Pending Review Specialty Diagnoses / Procedures [facility] Referred To Contact CT IMAGING Diagnoses Abdominal aortic aneurysm (AAA) without rupture, unspecified part (HCC) Thoracoabdominal aortic aneurysm (TAAA) without rupture, unspecified part (HCC) Examination of participant in clinical trial Procedures CTA ABD/PEL WO/W IVCON CT ANGIO ABD&PLVIS CNTRST MTRL W/WO CNTRST IMGES Rosetta Lu MD [address] [place] [address] Ct Imaging [place] [address] Referral ID Status Reason Start Date Expiration Date Visits Requested Visits Authorized [id number] Pending Review Auto-Generat ed Referral 03/30/2023 12/06/2023 1 1 * MRI/CT (Routine) - Pending Review Specialty Diagnoses / Procedures Referred By Mitra katz Referred To Contact CT IMAGING Diagnoses Thoracoabdominal aortic aneurysm (TAAA) without rupture, unspecified part (HCC) Examination of participant in clinical trial Procedures CTA CHEST (NONGATED) WO/W IVCON CT ANGIOGRAPHY CHEST W/CONTRAST/NONCONTRAST Rosetta Lu MD [address] Imaging [place] [address] Referral ID Status Reason Start Date Expiration Date Visits Requested Visits Authorized [id number] Pending Review Auto-Generat ed Referral 03/30/2023 12/06/2023 1 1 [facility] for visit Narrative* Auth/Cert Specialty Diagnoses / Procedures Referred By Mitra katz Referred To Contact ADMITTING Diagnoses S/P aortic valve repair S/P ascending aortic aneurysm repair H/O aortic root repair H/O aortic arch replacement S/P insertion of endovascular thoracic aortic stent graft Dissection of thoracoabdominal aorta (HCC) Pre-op testing History of COVID-19 Procedures EVASC RPR DTA EXP COVERAGE W/O ART ORIGIN ENDOVASCULAR REPAIR DESCENDING THORACIC AORTA W/ ENDOPROSTHESIS [facility] [address] [id number] Referral ID Status Reason Start Date Expiration Date Visits Re quested Visits Authorized [id number] 1 1 [facility] Summary Purpose Family History No Family History Records FoundNo Family History Records FoundNo Family History Records FoundNo Family History Records FoundNo Family History Records FoundNo Family History Records FoundNo Family History Records Found Advance Directives No Advanced Directives Records FoundDocuments on File Type Date Recorded Patient Bean Sorter Expl anation Advance Directive(s) 04/27/2021 11:20 AM Advance Directive(s) 04/27/2021 11:54 AM Advance Directive(s) 02/20/2021 8:57 AM Advance Directive(s) 01/23/2017 8:04 AM Latest Code Status on File Code Status Date Activated Date Inactivated Comments Full Code 02/20/2021 8:13 AM 02/21/2021 10:22 PM Full Code Order Discussed With: Patient DNR-CCA 02/19/2021 11:43 AM 02/20/2021 8:13 AM DNR Order Discussed With: Patient Documents on File Type Date Recorded Patient Bean Sorter Expl anation Advance Directive(s) 04/27/2021 11:20 AM Advance Directive(s) 04/27/2021 11:54 AM Advance Directive(s) 02/20/2021 8:57 AM Advance Directive(s) 01/23/2017 8:04 AM Latest Code Status on File Code Status Date Activated Date Inactivated Comments Full Code 02/20/2021 8:13 AM 02/21/2021 10:22 PM DNR-CCA 02/19/2021 11:43 AM 02/20/2021 8:13 AM Documents on File Type Date Recorded Patient Bean Sorter Expl anation Advance Directive(s) 09/01/2021 4:05 PM Advance Directive(s) 04/27/2021 11:20 AM Advance Directive(s) 04/27/2021 11:54 AM Advance Directive(s) 02/20/2021 8:57 AM Advance Directive(s) 01/23/2017 8:04 AM Documents on File Type Date Recorded Patient Bean Sorter Expl anation Advance Directive(s) 09/20/2021 10:03 AM Advance Directive(s) 09/01/2021 4:05 PM Advance Directive(s) 04/27/2021 11:20 AM Advance Directive(s) 04/27/2021 11:54 AM Advance Directive(s) 02/20/2021 8:57 AM Advance Directive(s) 01/23/2017 8:04 AM Latest Code Status on File Code Status Date Activated Date Inactivated Comments Full Code 02/20/2021 8:13 AM 02/21/2021 10:22 PM Question Answer Comments Full Code Order Discussed With: Patient Code Status History Code Status Date Activated Date Inactivated Comments DNR-CCA 02/19/2021 11:43 AM 02/20/2021 8:13 AM Question Answer Comments DNR Order Discussed With: Patient Latest Code Status on File Code Status Date Activated Date Inactivated Comments Full Code 02/20/2021 8:13 AM 02/21/2021 10:22 PM Question Answer Comments Full Code Order Discussed With: Patient Code Status History Code Status Date Activated Date Inactivated Comments DNR-CCA 02/19/2021 11:43 AM 02/20/2021 8:13 AM Question Answer Comments DNR Order Discussed With: Patient Health Concerns Infection Onset Date Last Indicated Resolved Time COVID-19 Rule-Out 04/12/2021 04/12/2021 05/02/2021 8:51 PM EST COVID-19 Confirmed 04/12/2021 04/12/2021 8:51 PM EST Infection Onset Date Last Indicated Resolved Time COVID-19 Rule-Out 09/16/2021 09/16/2021 09/16/2021 7:03 PM EDT Reason for Referral Specialty Diagnoses / Procedures Referred By Contac t Referred To Contact Diagnoses Paralysis of left vocal fold Procedures REFER TO PACC - PRE ANESTHESIA CONSULTATION CLINIC OFFICE/OUTPATIENT [facility] 60-74 MINUTES Melvin Aguilar MD [address] [place] [address] Referral ID Status Reason Start Date Expiration Date Visits Requested Visits Authorized [id number] Authorized PCP Requested Referral 08/31/2021 08/31/2022 1 1 Additional Source Comments (unrecognized sect ion and content) No Status Records FoundNo Status Records FoundNo Status Records FoundNo Status Records FoundNo Status Records FoundNo Status Records FoundNo Status Records Found INFORMATION SOURCE (unrecogn ized section and content) DATE CREATED AUTHOR AUTHOR'S ORGANIZ ATION 05/22/2019 [facility] DATE CREATED AUTHOR AUTHOR'S ORGANIZ ATION 03/17/2021 [facility] DATE CREATED AUTHOR AUTHOR'S ORGANIZ ATION 09/01/2021 [facility] DATE CREATED AUTHOR AUTHOR'S ORGANIZ ATION 11/25/2022 [facility] DATE CREATED AUTHOR AUTHOR'S ORGANIZ ATION 01/13/2023 [facility] DATE CREATED AUTHOR AUTHOR'S ORGANIZ ATION 02/19/2023 [facility] ([place]) Source Comments (unrecognize d section and content) In the event this informatio n is protected by the Federal Confidentiality of Alcohol and Drug Abuse Patient Records regulations: The Federal rules restrict any use of the information to criminally investigate or prosecute any alcohol or drug abuse patient.[facility] the event this information is protected by the Federal Confidentiality of Alcohol and Drug Abuse Patient Records regulations: The Federal rules restrict any use of the information to criminally investigate or prosecute any alcohol or drug abuse patient.[facility] [facility] System[facility] the event this information is protected by the Federal Confidentiality of Alcohol and Drug Abuse Patient Records regulations: The Federal rules restrict any use of the information to criminally investigate or prosecute any alcohol or drug abuse patient.[facility] the event this information is protected by the Federal Confidentiality of Alcohol and Drug Abuse Patient Records regulations: The Federal rules restrict any use of the information to criminally investigate or prosecute any alcohol or drug abuse patient.[facility] the event this information is protected by the Federal Confidentiality of Alcohol and Drug Abuse Patient Records regulations: The Federal rules restrict any use of the information to criminally investigate or prosecute any alcohol or drug abuse patient.[facility] SystemIn the event this information is protected by the Federal Confidentiality of Alcohol and Drug Abuse Patient Records regulations: The Federal rules restrict any use of the information to criminally investigate or prosecute any alcohol or drug abuse patient.[facility] the event this information is protected by the Federal Confidentiality of Alcohol and Drug Abuse Patient Records regulations: The Federal rules restrict any use of the information to criminally investigate or prosecute any alcohol or drug abuse patient.[facility] the event this information is protected by the Federal Confidentiality of Alcohol and Drug Abuse Patient Records regulations: The Federal rules restrict any use of the information to criminally investigate or prosecute any alcohol or drug abuse patient.[facility] System[facility] the event this information is protected by the Federal Confidentiality of Alcohol and Drug Abuse Patient Records regulations: The Federal rules restrict any use of the information to criminally investigate or prosecute any alcohol or drug abuse patient.[facility]In the event this information is protected by the Federal Confidentiality of Alcohol and Drug Abuse Patient Records regulations: The Federal rules restrict any use of the information to criminally investigate or prosecute any alcohol or drug abuse patient.[facility]In the event this information is protected by the Federal Confidentiality of Alcohol and Drug Abuse Patient Records regulations: The Federal rules restrict any use of the information to criminally investigate or prosecute any alcohol or drug abuse patient.[facility] the event this information is protected by the Federal Confidentiality of Alcohol and Drug Abuse Patient Records regulations: The Federal rules restrict any use of the information to criminally investigate or prosecute any alcohol or drug abuse patient.[facility] SystemIn the event this information is protected by the Federal Confidentiality of Alcohol and Drug Abuse Patient Records regulations: The Federal rules restrict any use of the information to criminally investigate or prosecute any alcohol or drug abuse patient.[facility] SystemIn the event this information is protected by the Federal Confidentiality of Alcohol and Drug Abuse Patient Records regulations: The Federal rules restrict any use of the information to criminally investigate or prosecute any alcohol or drug abuse patient.[facility] SystemIn the event this information is protected by the Federal Confidentiality of Alcohol and Drug Abuse Patient Records regulations: The Federal rules restrict any use of the information to criminally investigate or prosecute any alcohol or drug abuse patient.[facility] the event this information is protected by the Federal Confidentiality of Alcohol and Drug Abuse Patient Records regulations: The Federal rules restrict any use of the information to criminally investigate or prosecute any alcohol or drug abuse patient.[facility] the event this information is protected by the Federal Confidentiality of Alcohol and Drug Abuse Patient Records regulations: The Federal rules restrict any use of the information to criminally investigate or prosecute any alcohol or drug abuse patient.[facility]In the event this information is protected by the Federal Confidentiality of Alcohol and Drug Abuse Patient Records regulations: The Federal rules restrict any use of the information to criminally investigate or prosecute any alcohol or drug abuse patient.[facility] SystemIn the event this information is protected by the Federal Confidentiality of Alcohol and Drug Abuse Patient Records regulations: The Federal rules restrict any use of the information to criminally investigate or prosecute any alcohol or drug abuse patient.[facility] SystemIn the event this information is protected by the Federal Confidentiality of Alcohol and Drug Abuse Patient Records regulations: The Federal rules restrict any use of the information to criminally investigate or prosecute any alcohol or drug abuse patient.[facility] SystemIn the event this information is protected by the Federal Confidentiality of Alcohol and Drug Abuse Patient Records regulations: The Federal rules restrict any use of the information to criminally investigate or prosecute any alcohol or drug abuse patient.[facility] SystemIn the event this information is protected by the Federal Confidentiality of Alcohol and Drug Abuse Patient Records regulations: The Federal rules restrict any use of the information to criminally investigate or prosecute any alcohol or drug abuse patient.[facility] Reason for Visit (unrecogniz ed section and content) Specialty Diagnoses / Procedures Referred By Contac t Referred To Contact CT IMAGING Diagnoses Thoracic aortic aneurysm without rupture (HCC) Examination of participant in clinical trial Procedures CTA CHEST (NONGATED) WO/W IVCON CTA CHEST, W/WO CONTRAST CT ANGIO ABD&PLVIS CNTRST MTRL W/WO CNTRST Rosetta Cano MD [id number] Imaging Referral ID Status Reason Start Date Expiration Date V isits Requested Visits Authorized [id number] Closed Auto-Generate d Referral 06/24/2021 03/27/2022 1 1 Specialty Diagnoses / Procedures Referred By Contact Referred To Contact Cardiology / CARDIOVASCULAR MEDICINE Diagnoses [facility] FOLLOW [facility] PER ORDER- Chelsea Miller AC[facility]E [facility]NER Procedures CON INTERNAL CLINICAL Rosetta Lu MD [address] [place] [address] Jonel Cleary MD [address] [place] [address] Referral ID Status Reason Start Date Expiration Date V isits Requested Visits Authorized [id number] Closed Patient Cleared - [facility] 04/29/2021 03/18/2022 1 1 Reason Comments Patient Education Pre-op teaching Reason Comments Established Patient Follow-Up vocal cord paralysis fup Specialty Diagnoses / Procedures Referred By Contac t Referred To Contact [facility] Diagnoses Dysphonia Procedures REFERRAL TO [facility] FINANCIAL COUNSELOR Alice Hughes APRN.[facility] [address] [place] [address] [facility] [address] [place] [address] Referral ID Status Reason Start Date Expiration Date V isits Requested Visits Authorized [id number] Closed Financial Clearance Required - OON Payor Patient Cleared - [facility] 06/30/2021 09/28/2021 1 1 Reason Comments Patient Update COVID test for surge ry done before 72 hours. Reason Comments Post Op Reason Comments Established Patient Follow up Reason Comments Research IRB : FABRICIO PI: Dr. Lu Specialty Diagnoses / Procedures Referred By Contac t Referred To Contact CARDIAC SURGERY Diagnoses FABRICIO 12M (01/10/22-04/04/22) HANNAH leavitt [id number] Janna [id number] Procedures research nurse visit Rosetta Lu MD [id number], Research Nurse [employer] [address] [place] [address] Referral ID Status Reason Start Date Expiration Date Visits Requested Visits Authorized [id number] Pending Review OON/Self Pay Override 03/19/2022 06/17/2022 1 1 Reason Comments External Referrals/resources via [facility] fax Reason Comments Appointment Rescheduled Specialty Diagnoses / Procedures Referred By Controjelio t Referred To Contact [facility] [place] Diagnoses Stage 3 chronic kidney disease, unspecified whether stage 3a or 3b CKD (HCC) [N18.30] PAF (paroxysmal atrial fibrillation) (HCC) [I48.0] 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] Procedures EST CLINICAL PATIENT Jonel Cleary MD [address] [place] [address] Card Appts [address] [place] [address] Referral ID Status Reason Start Date Expiration Date V isits Requested Visits Authorized [id number] Closed Financial Clearance Required - OON Payor Patient Cleared - [facility] 07/10/2022 10/08/2022 1 1 Reason Comments Appointment 09/28/2022 Reason Comments Results Reason Comments Patient Question Patient Update Care Teams (unrecognized sec tion and content) Recreation Facility Attendant Relationship Specialty Start Date End Date Thong Herrera [address] [place] [address] PCP - General Family Practice 12/28/16 Jonel Cleary MD [address] [place] [address] Primary Staff Physician Cardiology 04/28/21 Recreation Facility Attendant Relationship Specialty Start Date End Date Thong Herrera [address] [place] [address] PCP - General Family Practice 12/28/16 Jonel Cleary MD [address] [place] [address] Primary Staff Physician Cardiology 04/28/21 Recreation Facility Attendant Relationship Specialty Start Date End Date Thong Herrera [address] [place] [address] PCP - General Family Practice 12/28/16 Jonel Cleary MD [address] [place] [address] Primary Staff Physician Cardiology 04/28/21 Recreation Facility Attendant Relationship Specialty Start Date End Date Thong Herrera MD [address] [place] [address] PCP - General Family Practice 12/28/16 Jonel Cleary MD [address] [place] [address] Primary Staff Physician Cardiology 04/28/21 Recreation Facility Attendant Relationship Specialty Start Date End Date Thong Herrera MD [address] [place] [address] PCP - General Family Practice 12/28/16 Jonel Cleary MD [address] [place] [address] Primary Staff Physician Cardiology 04/28/21 Recreation Facility Attendant Relationship Specialty Start Date End Date Thong Herrera MD [address] [place] [address] PCP - General Family Practice 12/28/16 Jonel Cleary MD [address] [place] [address] Primary Staff Physician Cardiology 04/28/21 Recreation Facility Attendant Relationship Specialty Start Date End Date Thong Herrera MD [address] [place], [place] [id number] PCP - General Family Practice 12/28/16 Jonel Cleary MD [address] [place] [address] Primary Staff Physician Cardiology 04/28/21 Recreation Facility Attendant Relationship Specialty Start Date End Date Thong Herrera MD [address] [place] [address] PCP - General Family Medicine 12/28/16 Jonel Cleary MD [address] [place] [address] Primary Staff Physician Cardiology 04/28/21 Recreation Facility Attendant Relationship Specialty Start Date End Date Thong Herrera MD [address] [place], [place] [id number] PCP - General Family Medicine 12/28/16 Jonel Cleary MD [address] [place] [address] Primary Staff Physician Cardiology 04/28/21 Recreation Facility Attendant Relationship Specialty Start Date End Date Thong Herrera MD [address] [place], [place] [id number] PCP - General Family Medicine 12/28/16 Jonel Cleary MD [address] [place] [address] Primary Staff Physician Cardiology 04/28/21 Velia Mojica MD [address] [place] [address] Referring Hematology/Oncology 07/06/22 Recreation Facility Attendant Relationship Specialty Start Date End Date Thong Herrera MD [address] [place], [place] [id number] PCP - General Family Medicine 12/28/16 Jonel Cleary MD [address] [place] [address] Primary Staff Physician Cardiology 04/28/21 Velia Mojica MD [address] [place] [address] Referring Hematology/Oncology 07/06/22 Recreation Facility Attendant Relationship Specialty Start Date End Date Thong Herrera MD [address] [place] [id number] PCP - General Family Medicine 12/28/16 Jonel Cleary MD [address] [place] [address] Primary Staff Physician Cardiology 04/28/21 Velia Mojica MD [address] [place] [address] Referring Hematology/Oncology 07/06/22 Recreation Facility Attendant Relationship Specialty Start Date End Date Thong Herrera MD [address] [place] [id number] PCP - General Family Medicine 12/28/16 Jonel Cleary MD [address] [place] [address] Primary Staff Physician Cardiology 04/28/21 Velia Mojica MD [address] [place] [address] Referring Hematology/Oncology 07/06/22 Recreation Facility Attendant Relationship Specialty Start Date End Date Thong Herrera MD [address] [place], [place] [id number] PCP - General Family Medicine 12/28/16 Jonel Cleary MD [address] [place] [address] Primary Staff Physician Cardiology 04/28/21 Velia Mojica MD [address] [place] [address] Referring Hematology/Oncology 07/06/22 Recreation Facility Attendant Relationship Specialty Start Date End Date Thong Herrera MD [address] [place], [place] [id number] PCP - General Family Medicine 12/28/16 Jonel Cleary MD [address] [place] [address] Primary Staff Physician Cardiology 04/28/21 Velia Mojica MD [address] [place] [address] Referring Hematology/Oncology 07/06/22 Recreation Facility Attendant Relationship Specialty Start Date End Date Thong Herrera MD [address] [place], [place] [id number] PCP - General Family Medicine 12/28/16 Jonel Cleary MD [address] [place] [address] Primary Staff Physician Cardiology 04/28/21 Velia Mojica MD [address] [place] [address] Referring Hematology/Oncology 07/06/22 Recreation Facility Attendant Relationship Specialty Start Date End Date Thong Herrera MD [address] [place], [place] [id number] PCP - General Family Medicine 12/28/16 Jonel Cleary MD [address] [place], [place] [id number] Primary Staff Physician Cardiology 04/28/21 Velia Mojica MD [address] [place] [address] Referring Hematology/Oncology 07/06/22 Recreation Facility Attendant Relationship Specialty Start Date End Date Thong Herrera MD [address] [place] [address] PCP - General Family Medicine 12/28/16 Jonel Cleary MD [address] [place] [address] Primary Staff Physician Cardiology 04/28/21 Velia Mojica MD [address] [place] [address] Referring Hematology/Oncology 07/06/22 Recreation Facility Attendant Relationship Specialty Start Date End Date Thong Herrera MD [address] [place] [address] PCP - General Family Medicine 12/28/16 Jonel Cleary MD [address] [place] [address] Primary Staff Physician Cardiology 04/28/21 Velia Mojica MD [address] [place] [address] Referring Hematology/Oncology 07/06/22 Care Team (unrecognized sect ion and content) Care Team Personnel Name: ROSETTA HERRERA MD Member Role: Primary Care Physician Address: Address: [address] [place] [address] [address] [place] [address]- Name: KELLEY BOURGEOIS MD Position: P4 Oncology Provider Med Service: AMB HEM/ONC Member Role: Oncologist Address: Address: [address] [place] [address] Hematology and Oncology [place], [place] [address] Care Team Related Persons Name: REESE RIVAS Name: HELGA OROPEZA Address: Home [address] [place] [id number] Care Team Personnel Name: ROSETTA HERRERA MD Member Role: Primary Care Physician Address: Address: [address] [facility] [address] [place] [address]- Name: KELLEY BOURGEOIS MD Position: P4 Oncology Provider Med Service: AMB HEM/ONC Member Role: Oncologist Address: Address: [address] [facility] Hematology and Oncology [place], [place] [address] Care Team Related Persons Name: REESE RIVAS Name: HELGA OROPEZA Address: Home [address] [place], [place] [id number] FOR RECORDS PERTAINING TO PATIENTS WHO ARE OR HAVE BEEN ENROLLED IN A CHEMICAL DEPENDENCY/SUBSTANCEABUSE PROGRAM, SOME INFORMATION MAY BE OMITTED. This clinical summary was aggregated from multiple sources. Caution should be exercised in using it in the provision of clinical care. This summary normalizes information from multiple sources, and as a consequence, information in this document may materially change the coding, format and clinical context of patient data. In addition, data may be omitted in some cases. CLINICAL DECISIONS SHOULD BE BASED ON THE PRIMARY CLINICAL RECORDS. [facility] [employer] provides no warranty or guarantee of the accuracy or completeness of information in this document.
--- NOTE | 2023-03-29 18:16 | STRESSREP_ITS ---
Stress Test Report Pharmacologic myocardial perfusion stress test. 77-year-old lady with a history of coronary artery disease status post coronary bypass surgery. Resting EKG demonstrates sinus bradycardia with a rate of 53 bpm. Resting blood pressure is 122/72 mmHg. 0.4 mg of regadenoson was infused per usual protocol followed by rapid intravenous saline flush injection. Continuous EKG monitoring was performed. The maximum heart rate was 66 bpm which was 45% of max impacted heart rate the maximum workload was 1 metabolic equivalent. At rest there were no ST or T wave changes noted to suggest ischemia and at peak infusion nonspecific ST changes were noted which did not meet the criteria for ischemia. No clinical angina is noted. The final blood pressure was 110/60 mmHg. Myocardial perfusion protocol. 14.7 mCi of technetium 99m sestamibi was injected at rest. 0.4 mg of regadenoson was infused per usual protocol. At peak infusion 44.2 mCi of technetium 99m sestamibi was injected stress images were obtained stress and rest images were reconstructed and compared in the short axis vertical long and horizontal long axis. Gated images were also obtained. Perfusion SPECT analysis: Review of the stress images demonstrate normal uptake of tracer noted in all areas of the myocardium. A small defect is noted at the apex. The resting im ages similar demonstrated normal uptake of tracer noted in all areas of the myocardium. Persistent defect is noted at the apex suggestive of a previous apical infarct. No ischemia is noted. Gated SPECT analysis: The gated ejection fraction is 53%. Conclusion: Normal pharmacologic myocardial perfusion stress test. Previous apical infarct cannot be excluded Preserved ejection fraction.
== END | disposition home or self-care (01) ==
LOC: CVS 06:50
PROVIDERS: PCP Nurse Practitioner Family; Referring Provider Physician Assistant Medical; Visit Provider Physician Assistant Medical
DX: R06.09 Other forms of dyspnea (principal); Z95.1 Presence of aortocoronary bypass graft; Z98.890 Other specified postprocedural states; Z86.79 Personal history of other diseases of the circulatory system; I49.3 Ventricular premature depolarization
CPT/HCPCS: 78452; 93017; 93306; A9500; Q9957; A4216; C8929; J2785

== ENCOUNTER → 2024-03-26 | Outpatient (CLI) | payer OTHER, SELFPAY ==
[2024-03-26 10:06] LABS: Absolute Lymphocyte Count 1.67 X10^3/uL (0.83-4.51); Absolute Neutrophil Count 6.5 X10^3/uL (2.0-7.7); Basophil# 0.03 X10^3/uL; Basophil% 0.3 % (0-1); Eosinophil# 0.19 X10^3/uL; Eosinophils% 1.9 % (0-5); Hematocrit 32.1 % (40-54); Hemoglobin 9.7 g/dL (13.0-16.5); Lymphocyte # 1.67 X10^3/ul (0.83-4.51); Lymphocyte % 16.8 % (19-41); Mean Corp Hgb Conc 30.2 g/dL (32-36); Mean Corpuscular Hgb 28.3 pg (27.0-32.0); Mean Corpuscular Volume 93.6 fL (80-94); Mean Platelet Vol. 9.2 fl (6.2-12.0); Monocyte% 15.1 % (0-10); NRBC Flagged by Analyzer 0 % (0-5); Neutrophil % 65.5 % (47-70); Platelet Count 267 K/mm3 (150-450); RBC Distribution Width CV 14.8 % (11.6-14.6); RBC Distribution Width SD 50.8 fl (35.1-43.9); Red Blood Count 3.43 M/mm3 (4.6-6.2); White Blood Count 9.9 K/mm3 (4.4-11.0)
[2024-03-26 10:53] LABS: ALB/GLOB Ratio 0.8 RATIO (0.9-2.4); AST(SGOT) 31 U/L (15-37); Alanine Aminotransfer ALT/SGPT 36 U/L (16-61); Albumin, Serum 2.8 g/dL (3.2-5.0); Alkaline Phosphatase 120 U/L (45-117); Anion Gap 7 (5-15); BUN 48 mg/dL (7-18); BUN/Creat Ratio 22.2 RATIO (10-20); Chloride 110 mmol/L (98-107); Cholesterol 144 mg/dL (200); Creatinine, Serum 2.16 mg/dL (0.70-1.30); EST Glomerular Filtration Rate 32 mL/min (>60); Est Glom Filt Rate - Afr Amer 38 mL/min (>60); Globulin 3.4 g/dL (2.2-4.2); Glucose 98 mg/dL (74-106); High Density Lipoprotein 31 mg/dL; Potassium 4.4 mmol/L (3.5-5.1); Protein, Total 6.2 g/dL (6.4-8.2); Sodium Level 142 mmol/L (136-145); Triglycerides 149 mg/dL; Very Low Density Lipoprotein 30 mg/dL (5-40)
== END | disposition home or self-care (01) ==
PROVIDERS: PCP Family Medicine; Referring Provider Physician Assistant Medical; Visit Provider Physician Assistant Medical
DX: I10 Essential (primary) hypertension (principal); E78.5 Hyperlipidemia, unspecified
CPT/HCPCS: 36415; 80053; 80061; 85025